=== PATIENT | male | born 1960 | race Caucasian/White ===

== ENCOUNTER 2020-04-24 01:20 | Emergency (ER) | payer SELFPAY ==
[2020-04-24 02:49] LABS: Absolute Lymphocytes (CBC) 1.7 K/uL (0.7-4.9); Basophils % 0.9 % (0-1.3); Hematocrit 41.1 % (39.6-49.0); Lymphocytes % 23.1 % (15.3-44.8); MPV 8.1 fL (7.6-11.3)
[2020-04-24 02:56] LABS: Protime INR 1.02
[2020-04-24 03:12] LABS: ALT/SGPT 25 U/L (12-78); AST/SGOT 20 U/L (15-37); Albumin 3.1 g/dL (3.4-5.0); Alkaline Phosphatase 90 U/L (45-117); BUN Blood Urea Nitrogen 17 mg/dL (7-18); Bicarbonate 27 mmol/L (21-32); Bilirubin Direct 0.1 mg/dL (0-0.2); Bilirubin Total 0.4 mg/dL (0.2-1.0); CKMB Creatine Kinase MB 1.1 ng/mL (0.3-3.6); Creatine Phosphokinase 193 U/L (39-308); Glucose Level 98 mg/dL (74-106); Lipase 90 U/L (73-393); Magnesium 2.1 mg/dL (1.8-2.4); NT PRO-BNP 3417 pg/mL (<125); Potassium 4.1 mmol/L (3.5-5.1); Sodium Level 143 mmol/L (136-145); Troponin (Emerg Dept Use Only) < 0.02 ng/mL (0.0-0.045)
[2020-04-24] MEDS ORDERED: AZITHROMYCIN 250 MG TAB ONE (05:11)
[2020-04-24] MEDS ORDERED: CEFTRIAXONE/SWI 1gm 1 GM/10 ML SYR ONE (05:12)
--- NOTE | 2020-04-24 05:12 | ER ---
Nurse's Notes [facility] Name: Mani Emerson Age: 59 yrs Sex: Male : 1960 Arrival Date: 04/24/2020 Time: 01:27 Bed 4 Private MD: Diagnosis: Pneumonia, unspecified organism Presentation: 04/24 01:51 Chief complaint: Patient states: I have been having trouble taking deep breathes jb4 through out the day yesterday. tonight it suddenly got worse. I have slight left sided chest pain that feels like cramps. Coronavirus screen: Client denies travel out of the [place] in the last 14 days. Client presents with at least one sign or symptom that may indicate coronavirus-19. Standard/surgical mask placed on the client. Provider contacted for isolation considerations. Ebola Screen: No symptoms or risks identified at this time. Initial Sepsis Screen: Does the patient meet any 2 criteria? HR > 90 bpm. Yes Does the patient have a suspected source of infection? No. Patient's initial sepsis screen is negative. Risk Assessment: Do you want to hurt yourself or someone else? Patient reports no desire to harm self or others. Onset of symptoms was April 23, 2020. Transition of care: patient was not received from another setting of care. 01:51 Method Of Arrival: Wheelchair jb4 01:51 Acuity: MARLEN 3 jb4 Historical: - Allergies: 01:58 No Known Allergies; jb4 - Home Meds: 01:58 None [Active]; jb4 - PMHx: 01:58 mitral valve regurgitation; Hernia; jb4 - PSHx: 01:58 MARY knees; MARY shoulders; Tonsillectomy; L hand; Hernia repair; jb4 - Immunization history:: Adult Immunizations up to date. - Social history:: Smoking status: Patient denies any tobacco usage or history of. Patient uses alcohol, only on a social basis. Patient/guardian denies using street drugs. Screenin:00 Abuse screen: Denies threats or abuse. Nutritional screening: No deficits noted. jb4 Tuberculosis screening: No symptoms or risk factors identified. Fall Risk None identified. Assessment: 02:00 General: Appears in no apparent distress. comfortable, Behavior is calm, cooperative, jb4 appropriate for age. Pain: Complains of pain in left breast Pain does not radiate. Pain currently is 3 out of 10 on a pain scale. Neuro: Level of Consciousness is awake, alert, obeys commands, Oriented to person, place, time, situation. Cardiovascular: Patient's skin is warm and dry. Respiratory: Airway is patent Respiratory effort is even, unlabored, Respiratory pattern is regular, symmetrical. GI: No signs and/or symptoms were reported involving the gastrointestinal system. : No signs and/or symptoms were reported regarding the genitourinary system. EENT: No signs and/or symptoms were reported regarding the EENT system. Derm: Skin is intact, Skin is pink, warm \T\ dry. Musculoskeletal: Circulation, motion, and sensation intact. Range of motion: intact in all extremities. 03:07 Reassessment: Patient appears in no apparent distress at this time. Patient and/or jb4 family updated on plan of care and expected duration. Pain level reassessed. Patient is alert, oriented x 3, equal unlabored respirations, skin warm/dry/pink. Patient states feeling better. 04:00 Reassessment: Patient appears in no apparent distress at this time. Patient and/or jb4 family updated on plan of care and expected duration. Pain level reassessed. Patient is alert, oriented x 3, equal unlabored respirations, skin warm/dry/pink. 04:59 Reassessment: () [id number]. 05:09 Reassessment: Patient appears in no apparent distress at this time. Patient and/or jb4 family updated on plan of care and expected duration. Pain level reassessed. Patient is alert, oriented x 3, equal unlabored respirations, skin warm/dry/pink. Patient states feeling better. Vital Signs: 01:51 BP 152 / 104; Pulse 95; Resp 18; Temp 98.2(TE); Pulse Ox 95% ; Weight 90.72 kg (R); jb4 Height 5 ft. 9 in. (175.26 cm); Pain 2/10; 03:00 BP 131 / 97; Pulse 94; Resp 18; Pulse Ox 96% on R/A; jb4 04:00 BP 133 / 96; Pulse 82; Resp 16; Pulse Ox 95% on R/A; jb4 05:00 BP 140 / 100; Pulse 97; Resp 16; Pulse Ox 95% on R/A; jb4 01:51 Body Mass Index 29.53 (90.72 kg, 175.26 cm) jb4 ED Course: 01:27 Patient arrived in ED. ag3 01:30 Tom Nelson MD is Attending Physician. tw4 01:51 Justin Garcia, RN is Primary Nurse. jb4 01:57 Triage completed. jb4 01:58 Arm band placed on right wrist. jb4 02:00 Patient has correct armband on for positive identification. Placed in gown. Bed in low jb4 position. Call light in reach. Side rails up X 1. tactical deception plans officer on. Pulse ox on. NIBP on. 02:25 Inserted saline lock: 20 gauge in right antecubital area, using aseptic technique. jb4 Blood collected. 02:25 Initial lab(s) drawn, by me, sent to lab. First set of blood cultures drawn by me. jb4 02:50 Second set of blood cultures drawn by me. Flu and/or RSV swab sent to lab. Covid-19 jb4 swab. 03:06 XRAY CXR (1 view) In Process Unspecified. EDMS 04:31 CT Chest For PE Angio In Process Unspecified. EDMS 05:22 No provider procedures requiring assistance completed. IV discontinued, intact, jb4 bleeding controlled, No redness/swelling at site. Pressure dressing applied. Administered Medications: 05:08 Drug: Rocephin - (cefTRIAXone) 1 grams {Note: Administered IVP per pharmacy protocol..} jb4 Route: IVPB; Infused Over: 30 mins; Site: right antecubital; 05:10 Follow up: Response: No adverse reaction; IV Status: Completed infusion jb4 05:10 Drug: AZITHromycin 500 mg Route: PO; jb4 05:21 Follow up: Response: No adverse reaction jb4 Outcome: 05:12 Discharge ordered by . tw4 05:22 Discharged to home ambulatory, with family. jb4 05:22 Condition: stable 05:22 Discharge instructions given to patient, Instructed on discharge instructions, follow up and referral plans. medication usage, Demonstrated understanding of instructions, follow-up care, medications, Prescriptions given X 2. 05:22 Patient left the ED. jb4 Signatures: Dispatcher [employer] [facility] Justin Garcia RN RN jb4 Rhianna Avalos RN RN ea Wadley, Terrence, MD MD tw4 Chele Cutlerce ag3
--- NOTE | 2020-04-24 05:12 | EDPHYS ---
Physician Documentation [facility] Name: Mani Emerson Age: 59 yrs Sex: Male : 1960 Arrival Date: 04/24/2020 Time: 01:27 Bed 4 Private MD: ED Physician Tom Nelson HPI: 04/24 06:36 This 59 yrs old Male presents to ER via Wheelchair with complaints of Unable tw4 to take a deep breath. 06:36 The patient has shortness of breath at rest. Onset: The symptoms/episode began/occurred tw4 today. Duration: The symptoms are continuous, and are unchanged since they started. The patient's shortness of breath has no apparent modifying factors. Associated signs and symptoms: The patient has no apparent associated signs or symptoms. Severity of symptoms: At their worst the symptoms were moderate in the emergency department the symptoms are unchanged. The patient has not experienced similar symptoms in the past. Historical: - Allergies: 01:58 No Known Allergies; jb4 - Home Meds: 01:58 None [Active]; jb4 - PMHx: 01:58 mitral valve regurgitation; Hernia; jb4 - PSHx: 01:58 MARY knees; MARY shoulders; Tonsillectomy; L hand; Hernia repair; jb4 - Immunization history:: Adult Immunizations up to date. - Social history:: Smoking status: Patient denies any tobacco usage or history of. Patient uses alcohol, only on a social basis. Patient/guardian denies using street drugs. ROS: 06:36 Constitutional: Negative for fever, chills, and weight loss, Eyes: Negative for injury, tw4 pain, redness, and discharge, Cardiovascular: Negative for chest pain, palpitations, and edema, Abdomen/GI: Negative for abdominal pain, nausea, vomiting, diarrhea, and constipation, Back: Negative for injury and pain, MS/Extremity: Negative for injury and deformity, Skin: Negative for injury, rash, and discoloration. 06:36 Respiratory: Positive for dyspnea on exertion, shortness of breath, Negative for cough, hemoptysis, orthopnea, pleurisy, wheezing. Exam: 06:36 Constitutional: This is a well developed, well nourished patient who is awake, alert, tw4 and in no acute distress. Head/Face: Normocephalic, atraumatic. Chest/axilla: Normal chest wall appearance and motion. Nontender with no deformity. No lesions are appreciated. Cardiovascular: Regular rate and rhythm with a normal S1 and S2. No gallops, murmurs, or rubs. Normal PMI, no JVD. No pulse deficits. Respiratory: Lungs have equal breath sounds bilaterally, clear to auscultation and percussion. No rales, rhonchi or wheezes noted. No increased work of breathing, no retractions or nasal flaring. Abdomen/GI: Soft, non-tender, with normal bowel sounds. No distension or tympany. No guarding or rebound. No evidence of tenderness throughout. Back: No spinal tenderness. No costovertebral tenderness. Full range of motion. MS/ Extremity: Pulses equal, no cyanosis. Neurovascular intact. Full, normal range of motion. Neuro: Awake and alert, GCS 15, oriented to person, place, time, and situation. Cranial nerves II-XII grossly intact. Motor strength 5/5 in all extremities. Sensory grossly intact. Cerebellar exam normal. Normal gait. Vital Signs: 01:51 BP 152 / 104; Pulse 95; Resp 18; Temp 98.2(TE); Pulse Ox 95% ; Weight 90.72 kg (R); jb4 Height 5 ft. 9 in. (175.26 cm); Pain 2/10; 03:00 BP 131 / 97; Pulse 94; Resp 18; Pulse Ox 96% on R/A; jb4 04:00 BP 133 / 96; Pulse 82; Resp 16; Pulse Ox 95% on R/A; jb4 05:00 BP 140 / 100; Pulse 97; Resp 16; Pulse Ox 95% on R/A; jb4 01:51 Body Mass Index 29.53 (90.72 kg, 175.26 cm) jb4 MDM: 02:01 Patient medically screened. tw4 06:36 Differential diagnosis: Chronic Obstructive Pulmonary Disease Myocardial Infarction tw4 pneumonia, Pneumothorax pulmonary edema, Pulmonary Embolism reactive airway disease. Antibiotic administration: The patient is discharged and will get outpatient antibiotics, Zithromax. Data reviewed: vital signs, nurses notes. Data reviewed: lab test result(s), cardiac enzymes, CBC, hepatic panel, radiologic studies, CT scan. Counseling: I had a detailed discussion with the patient and/or guardian regarding: the historical points, exam findings, and any diagnostic results supporting the discharge/admit diagnosis, lab results, radiology results. Special discussion: I discussed with the patient/guardian in detail that at this point there is no indication for admission to the hospital. It is understood, however, that if the symptoms persist or worsen the patient needs to return immediately for re-evaluation. 04/24 01:46 Order name: Blood Culture Adult (2) [facility] 04/24 01:46 Order name: BMP [facility] 04/24 01:46 Order name: CBC with Diff [facility] 04/24 01:46 Order name: Ckmb [facility] 04/24 01:46 Order name: CPK [facility] 04/24 01:46 Order name: D-Dimer [facility] 04/24 01:46 Order name: Hepatic Function [facility] 04/24 01:46 Order name: Lipase [facility] 04/24 01:46 Order name: Magnesium [facility] 04/24 01:46 Order name: NT PRO-BNP [facility] 04/24 01:46 Order name: PT-INR [facility] 04/24 01:46 Order name: Ptt, Activated [facility] 04/24 01:46 Order name: Troponin (emerg Dept Use Only) [facility] 04/24 02:36 Order name: Flu [facility] 04/24 01:46 Order name: XRAY CXR (1 view) [facility] 04/24 01:46 Order name: EKG; Complete Time: 02:33 04/24 01:46 Order name: Cardiac monitoring; Complete Time: 02:17 04/24 01:46 Order name: EKG - Nurse/Tech; Complete Time: 02:17 04/24 01:46 Order name: IV Saline Lock; Complete Time: 02:33 04/24 01:46 Order name: Labs collected and sent; Complete Time: 02:33 04/24 01:46 Order name: O2 Per Protocol; Complete Time: 02:17 04/24 01:46 Order name: O2 Sat Monitoring; Complete Time: 02:18 04/24 02:36 Order name: COVID-19 [facility] 04/24 02:36 Order name: Influenza Screen (A EDMS 04/24 03:01 Order name: CT Chest For PE Angio 04/24 03:26 Order name: SARS-COV-2 RT PCR EDMS Administered Medications: 05:08 Drug: Rocephin - (cefTRIAXone) 1 grams {Note: Administered IVP per pharmacy protocol..} jb4 Route: IVPB; Infused Over: 30 mins; Site: right antecubital; 05:10 Follow up: Response: No adverse reaction; IV Status: Completed infusion jb4 05:10 Drug: AZITHromycin 500 mg Route: PO; jb4 05:21 Follow up: Response: No adverse reaction jb4 Disposition: 04/24/20 05:12 Discharged to Home. Impression: Pneumonia, unspecified organism. - Condition is Stable. - Discharge Instructions: Community-Acquired Pneumonia, Adult. - Prescriptions for Albuterol Sulfate 90 mcg/actuation - inhale 1-2 puff by INHALATION route every 4-6 hours; 1 Inhaler. Zithromax 500 mg Oral Tablet - take 1 tablet by ORAL route once daily for 3 days; 3 tablet. - Medication Reconciliation Form, Thank You Letter, Antibiotic Education, Prescription Opioid Use form. - Follow up: Private Physician; When: Upon discharge from the Emergency Department; Reason: If symptoms return, Recheck today's complaints, Continuance of care, Re-evaluation by your physician. - Problem is new. - Symptoms have improved. Signatures: Dispatcher [employer] [facility] Justin Garcia RN RN jb4 Tom Nelson MD MD tw4 Corrections: (The following items were deleted from the chart) 03:26 02:36 CORONAVIRUS ordered. [facility] EDGA 05:22 05:12 04/24/2020 05:12 Discharged to Home. Impression: Pneumonia, unspecified organism. jb4 Condition is Stable. Forms are Medication Reconciliation Form, Thank You Letter, Antibiotic Education, Prescription Opioid Use. Follow up: Private Physician; When: Upon discharge from the Emergency Department; Reason: If symptoms return, Recheck today's complaints, Continuance of care, Re-evaluation by your physician. Problem is new. Symptoms have improved. tw4
[2020-04-24 05:37] VITALS: TEMP 98.2
[2020-04-24 05:40] VITALS: O2SAT 95
[2020-04-24 05:41] VITALS: BP 140/100
--- NOTE | 2020-04-24 08:55 | RAD REPORT ---
EXAM DESCRIPTION: Bharati Single View04/24/2020 3:05 am CLINICAL HISTORY: Shortness of breath COMPARISON: none FINDINGS: Small to moderate bilateral pleural effusions Mild right basilar lung opacity The heart is normal size IMPRESSION: Small to moderate bilateral pleural effusions Mild right basilar opacity may represent pneumonia or pulmonary edema
--- NOTE | 2020-04-25 07:44 | EKG ---
Test Date: 2020-04-24 Test Time: 01:59:43 Second Shift Supervisor: VERÓNICA MEASUREMENT RESULTS: Intervals: Rate: 97 NM: 146 QRSD: 88 QT: 360 QTc: 457 [place]: P: 53 NM: 146 QRS: 53 T: 31 INTERPRETIVE STATEMENTS: Normal sinus rhythm Normal ECG No previous ECG available for comparison Electronically Signed On 04-25-20 07:42:59 CDT by Wong Lan
--- NOTE | 2020-04-25 10:58 | RAD REPORT ---
EXAM DESCRIPTION: CT - Chest For Pe Angio - 04/24/2020 6:34 am CLINICAL HISTORY: The patient is 59 years old and is Male; SOB TECHNIQUE: Axial computed tomographic angiography images of the chest with intravenous contrast. S agittal and coronal reformatted images were created and reviewed. This CT exam was performed using one or more of the following dose reduction techniques: automated exposure control, adjustment of t he mA and/or kV according to patient size, and/or use of iterative reconstruction technique. MIP reconstructed images were created and reviewed. COMPARISON: No relevant prior studies available. FINDINGS: ARTIFACTS: The exam is suboptimal secondary to motion artifact. PULMONARY ARTERIES: The main pulmonary arteries and segmental branches opacify normally and are without filling defect. AORTA: No acute findings. No thoracic aortic aneurysm. LUNGS: Bibasilar atelectasis is present. Patchy groundglass opacity within the right upper lob e is noted. PLEURAL SPACE: Moderate bilateral pleural effusions are present. No pneumothorax. HEART: The heart is enlarged. A trace pericardial effusion is present. No evidence of RV dysfu nction. BONES/JOINTS: No acute fracture. No dislocation. SOFT TISSUES: Unremarkable. LYMPH NODES: Minimally prominent AP window lymph nodes are noted. LIVER: Use is within the liver present. IMPRESSION: 1. The main pulmonary arteries and segmental branches opacify normally and are without filling defect. The remainder of the pulmonary vessels are not adequately evaluated secondary to m otion artifact. 2. Moderate bilateral pleural effusions. 3. Patchy area of groundglass opacity specifically within the right upper lobe concerning for an in fectious process. Electronically signed by: Radha Figueroa MD 04/24/2020 4:45 AM CDT Due to temporary technical issues with the PACS/Fluency reporting system, reports are being signed by the in house radiologist without review as a courtesy to ensure prompt reporting. The interpreting r adiologist is fully responsible for the content of the report.
== END 2020-04-24 05:22 | disposition home or self-care (01) ==
LOC: ER 01:20
DX: J18.9 Pneumonia, unspecified organism (principal); Z20.828 Contact with and (suspected) exposure to other viral communicable diseases
CPT/HCPCS: 36415; 71045; 71275; 80048; 80076; 82550; 82553; 83690; 83735; 83880; 84484; 85025; 85379; 85610; 85730; 87040; 87804; 93005; 96374; 99284; J0696; Q9967; U0003

== ENCOUNTER 2020-06-01 14:36 | Emergency (ER) | payer OTHER ==
--- NOTE | 2020-06-01 14:50 | ER ---
Nurse's Notes [facility] Name: Mani Emerosn Age: 59 yrs Sex: Male : 1960 Arrival Date: 06/01/2020 Time: 14:38 Bed Waiting Private MD: Diagnosis: Presentation: 06/01 14:48 Chief complaint: pt left before triage to go to Dr. Lan's office. dm5 ED Course: 14:38 Patient arrived in ED. ag5 Administered Medications: No medications were administered Outcome: 14:49 Patient left the ED. dm5 Signatures: Dalia Arias RN RN jill5 [facility]
== END 2020-06-01 14:49 | disposition left against medical advice (07) ==
LOC: ER 14:36
DX: Z53.21 Procedure and treatment not carried out due to patient leaving prior to being seen by health care provider (principal)
CPT/HCPCS: 99281

== ENCOUNTER 2021-03-15 06:28 | Day surgery (SDC) | payer OTHER ==
[2021-03-09 17:04] LABS: Absolute Lymphocytes (CBC) 1.8 K/uL (0.7-4.9); Basophils % 0.9 % (0-1.3); Hematocrit 39.6 % (39.6-49.0); Lymphocytes % 30.4 % (15.3-44.8); MPV 7.4 fL (7.6-11.3); RBC Red Blood Cell Count 4.39 M/uL (4.33-5.43)
[2021-03-09 17:09] LABS: Protime INR 0.87
[2021-03-09 17:12] LABS: Potassium 3.8 mmol/L (3.5-5.1)
--- NOTE | 2021-03-09 17:16 | RAD REPORT ---
EXAM DESCRIPTION: RAD - Chest Pa And Lat (2 Views) - 03/09/2021 4:55 pm CLINICAL HISTORY: PRE OP COMPARISON: Chest Single View dated 04/24/2020 FINDINGS: No evidence of edema or pneumonia. The heart size is within normal limits.No acute osseous abnormality. No significant pleural effusions or pneumothorax. Sternotomy. Soft tissue anchors are p resent in the right humeral head. IMPRESSION: No acute cardiopulmonary disease.
[2021-03-15] MEDS ORDERED: Ringers Lactate 1,000 ML IV ONE (07:04)
[2021-03-15] MEDS ORDERED: CEFAZOLIN/SWI 2gm 2 GM/20 ML SYR ONE (07:04)
[2021-03-15] MEDS ORDERED: FENTANYL CITR 100 MCG/2 ML ONE (07:26)
[2021-03-15] MEDS ORDERED: LIDOCAINE 2% MPF 5 ML VIAL ONE (07:27)
[2021-03-15] MEDS ORDERED: propofoL 200 MG/20 ML VIAL IV ONE (07:27)
[2021-03-15] MEDS ORDERED: MIDAZOLAM HCL 2 MG/2 ML INJ ONE (07:27)
[2021-03-15] MEDS ORDERED: dexAMETHasone 10 MG/ML VIAL ONE (07:27)
[2021-03-15] MEDS ORDERED: BUPIVACAINE 0.5% PF 10 ML VIAL ONE (07:49)
[2021-03-15] MEDS ORDERED: KETOROLAC 30 MG/ML INJ ONE (08:50)
[2021-03-15] MEDS: MEPERIDINE HCL 25 MG/ML SYR ONE ×2 (09:12→09:17)
--- NOTE | 2021-03-15 09:18 | P.BOP ---
Preoperative diagnosis: right knee lateral meniscus tear, right knee osteoarthritis Postoperative diagnosis: same Primary procedure: right knee arthroscopic partial lateral meniscectomy Secondary procedure: right knee arthroscopic synovectomy Cartridge Loading Operator: NONE,NONE Estimated blood loss: 5 cc Specimen: right knee synovium, right knee cartilage, right knee lateral meniscus Findings: see dictation Anesthesia: General Complications: None Implants: none Fluids & blood products: per anesthesia record: TT: 46 mins @ 250 mmHg Transferred to: Recovery Room Condition: Good
[2021-03-15] MEDS: MORPHINE 4 MG/ML SYR ONE ×6 (09:27→09:50)
[2021-03-15 10:27] LABS: Appearance TURBID (CLEAR); Color of fluid Red (COLORLESS)
[2021-03-15 10:31] LABS: Body Fluid Source SYNOVIAL
[2021-03-15] MEDS ORDERED: HYDROCODONE/APAP 7.5/325 MG TAB ONE (10:38)
[2021-03-15 11:24] VITALS: BP 144/84; TEMP 97.2; O2SAT 95
[2021-03-15 11:28] LABS: Body Fluid WBC 383 /mm^3
--- NOTE | 2021-03-16 10:25 | OP ---
Date of Procedure: 03/15/2021 Surgeon: Shayen Thorne MD Preoperative Diagnoses: 1.Right knee lateral meniscus tear. 2.Right knee osteoarthritis with adhesion. Postoperative Diagnoses: 1.Right knee lateral meniscus tear. 2.Right knee osteoarthritis with adhesion. Procedure Performed: 1.Right knee arthroscopic partial lateral meniscectomy. 2.Right knee arthroscopic synovectomy with irrigation. Anesthesia: General, LMA. Fluids: Per Anesthesia record. Estimated Blood Loss: 5 cc. Complications: None. Specimens: 1.Right knee aspiration. 2.Right knee synovium. 3.Right knee . 4.Right knee lateral meniscus. Indications For Procedure: Mani is a 60-year-old male who presented to my clinic with signs and s ymptoms of recurrent effusions and MRI findings consistent with lateral meniscus tear. The patient w as having failed aspiration, corticosteroid injection as well as antiinflammatories. I di scussed with the patient at length the risks and benefits associated with operative and nonoperative treatment. He expressed understanding and elected to proceed with operative treatment. Description Of Procedure: After informed consent was obtained, the patient was identified in the pre operative holding area. The right upper extremity was marked. The patient was then brought back to the operating room, transferred to the operating table in supine fashion and placed under general LMA anesthesia. Right lower extremity was then prepped and draped in usual sterile fashion. Time-out p rocedure was initiated. The correct patient and procedure confirmed and identified. The patient did receive preop prophylactic antibiotics. The knee via the superior lateral portal. An 18 -gauge needle was brought into the knee to aspirate approximately 15 cc of sanguinous aspi rate was removed and set aside to sent to the lab for analysis. The right lower extremity was then e xsanguinated using an Esmarch and the tourniquet was inflated to 250 mmHg. Standard anteromedial and anterolateral portals were created. Diagnostic arthroscopy was performed. Arthroscope was first br ought into the patellofemoral joint. The patient was noted to have hyperemic synovium. The synovial tissue was irrigated, inflammatory in nature, synovectomy was then performed. The cartilage was not ed to have yellow or gold crystals or substance on the surface within the patellofemoral joint. No s ignificant chondral loose flaps were noted. There was grade 3 changes to the patellofemoral joint. The arthroscope was then brought in both medial and lateral gutters. Synovectomy was performed using the arthroscopic shaver. The synovial tissue was removed using the arthroscopic grasper and sent to pathology for analysis. The arthroscope was then brought to the medial compartment with the patient noted have more yellow gold substance on the cartilage surface. The loose piece of cartilage was th en removed using the pituitary grasper and sent to the lab for analysis. Medial meniscus was stable to probe. There was some grade 3 chondral changes noted within the medial compartment. The arthrosc ope was then brought into the intercondylar notch. The ACL was found to be intact as well as the PCL stable to probe. Synovectomy was then performed using the arthroscopic shaver. The arthroscope was then brought to the lateral compartment. The patient was noted to have a complex tear of the latera l meniscus with severe grade 4 chondromalacia changes noted on the lateral femoral condyle as well as lateral tibial plateau. The meniscus tear did extend into the popliteus and a partial meniscectomy was performed using a meniscal biter and arthroscopic shaver. Meniscal tissue also was noted to have the gold yellow crystals noted on it and the lateral meniscus was sent to pathology for analysis. A fter the partial meniscectomy was completed, the knee was irrigated with a total of 8 L of normal home ine. Arthroscopic instruments were then removed without complication. The wounds were then irrigate d and approximated using a 3-0 Monocryl. Sterile dressings were applied. Tourniquet was let down. The patient was awakened and transferred to PACU in stable condition. Postoperative Plan: The patient will be weightbearing as tolerated. He will follow up in clinic in 1 week for wound check. CV/MODL Voice ID: [id number] Report ID: [id number]
== END 2021-03-15 11:16 | disposition home or self-care (01) ==
LOC: OR 06:28
PROVIDERS: ATTEND Orthopaedic Surgery Sports Medicine
PROC: 0SBC4ZZ Excision of Right Knee Joint, Percutaneous Endoscopic Approach (ICD-10-PCS; principal; 2021-03-15 07:30)
DX: S83.241A Other tear of medial meniscus, current injury, right knee, initial encounter (principal); M25.461 Effusion, right knee; Z20.822 Contact with and (suspected) exposure to COVID-19
CPT/HCPCS: 93005 ×2; 87070; 85025; 80048; 36415 ×2; 89050; 87205; 85610; 88304; 88305; 85730; 87075; 89060; 71046; 29881; U0002; J2704; J2250; J3010; J1100; J2175; J0690; J7120

== ENCOUNTER 2022-03-26 06:30 | Day surgery (SDC) | payer OTHER ==
[2022-03-23 12:50] LABS: Absolute Lymphocytes (CBC) 1.8 K/uL (0.7-4.9); Hematocrit 40.9 % (39.6-49.0); Lymphocytes % 29.4 % (15.3-44.8); MPV 7.7 fL (7.6-11.3); RBC Red Blood Cell Count 4.49 M/uL (4.33-5.43)
[2022-03-23 12:58] LABS: Protime INR 0.98
[2022-03-23 13:03] LABS: SARS-CoV-2 Antigen Rapid Res Negative (Negative)
[2022-03-26] MEDS ORDERED: HEPA 1000U/500MLS 2,000 UNIT/1,000 ML BAG IV ONE (06:35)
[2022-03-26] MEDS ORDERED: LIDOCAINE 1% MPF 30 ML VIAL ONE (06:36)
[2022-03-26] MEDS ORDERED: NITROGLYCERIN 100 MCG/ML SYR (for cath lab use only) IV ONE (06:37)
[2022-03-26] MEDS ORDERED: MIDAZOLAM HCL 2 MG/2 ML INJ ONE ×2 (06:37→07:37)
[2022-03-26] MEDS ORDERED: FENTANYL CITR 100 MCG/2 ML ONE (06:37)
[2022-03-26] MEDS ORDERED: NA CHLORIDE 0.9% 0 ML IV ONE (06:38)
[2022-03-26] MEDS ORDERED: NITROGLYCERIN/D5W 25 MG/250 ML BTL IV ONE (06:38)
[2022-03-26] MEDS ORDERED: ATROPINE SULF 1 MG/10 ML SYR IV ONE (06:38)
[2022-03-26] MEDS ORDERED: NA CHLORIDE 0.9% 500 ML ONE (07:08)
[2022-03-26 09:07] VITALS: BP 122/67; O2SAT 96
--- NOTE | 2022-03-26 12:18 | OP ---
Surgeon: Wong Lan MD [place]: Ms. Sarah Andrea. Admitted on 03/26/2022 to the label maker as an outpatient. He underwent a left heart catheterization, selective coronary arteriogram, common femoral artery angiogram. Indication: Cardiac clearance prior to mitral valve repair surgery in [place]. Mr. Emerson is 61. Procedure In Detail: Brought to the label maker today as an outpatient, prepped and draped in the routi ne sterile fashion. Given Versed and fentanyl for sedation. A 6-[place] sheath introduced in the rig ht common femoral artery successfully using the Seldinger technique and 10 cc of Xylocaine. Angiogra phy there was normal. Angio-Seal was used to close the case. Sandra catheter left and right were u sed to do the left heart catheterization. He was found to have a normal left main, normal LAD. He h ad a 60% ostial OM stenosis. The RCA was large and it was right dominant. Common femoral artery ang iogram was normal. Angio-Seal was used to close the case. A 30 minutes conscious sedation. No comp lications. The patient tolerated the procedure well. Blood loss was 5 cc. Postoperative Diagnosis: Mild coronary artery disease. Plan: Plan is for medical therapy in that regard. We will clear for mitral valve repair by Dr. Yann Velásquez. He will go home today after 2 hours of bedrest. We will see him in the office after surgery in [place]. OREN/RAJENDRA Voice ID: [id number] Report ID: [id number]
--- NOTE | 2022-03-26 15:11 | EKG ---
Test Date: 2022-03-23 Test Time: 12:17:51 Pharmaceutical Physician: KI MEASUREMENT RESULTS: Intervals: Rate: 74 NJ: 156 QRSD: 94 QT: 404 QTc: 448 [place]: P: 31 NJ: 156 QRS: 1 T: 61 INTERPRETIVE STATEMENTS: Normal sinus rhythm Minimal voltage criteria for LVH, may be normal variant Possible Inferior infarct, age undetermined Abnormal ECG Compared to ECG 03/09/2021 15:24:03 Left ventricular hypertrophy now present Myocardial infarct finding now present Electronically Signed On 03-26-22 15:09:44 CDT by Rajendra Javier
== END 2022-03-26 09:33 | disposition home or self-care (01) ==
LOC: CCL 06:30
DX: I34.0 Nonrheumatic mitral (valve) insufficiency (principal); I25.10 Atherosclerotic heart disease of native coronary artery without angina pectoris; I48.0 Paroxysmal atrial fibrillation; I10 Essential (primary) hypertension; E78.2 Mixed hyperlipidemia; Z87.891 Personal history of nicotine dependence; Z20.822 Contact with and (suspected) exposure to COVID-19
CPT/HCPCS: 93005; 85025; 80048; 36415; 85610; 85730; 93454; 87811; C1893; Q9966; C1760; G0269; J2250 ×2; J3010; J7040; J1644; J0583

== ENCOUNTER 2022-05-22 13:10 | Emergency (ER) | payer OTHER ==
--- OUTSIDE RECORDS SUMMARY | 2022-05-22 13:25 | XMS REPORT | Continuity of Care Document ---
:1960 Author Organization [facility] t Address [address] [place] [address] Care Team Providers Name Role Phone Gudelia Barrientos NP Primary Care Physician Gudelia Barrientos Attending Clinician Unavailable Travis Merritt MD Attending Clinician Amado Moreau MD Attending Clinician Oscar Pretty MD Attending Clinician Bibiana Oliva Attending Clinician Michelle Ayers Attending Clinician ERROL BRIGGS Attending Clinician Unavailable SHANIKA DUMONT Attending Clinician Unavailable STERLING CAMPBELL Attending Clinician Unavailable TRAVIS MERRITT Admitting Clinician Unavailable NADIA ABDUL Admitting Clinician Unavailable Payers Payer Name Policy Type Policy Number Effective Date Expiration Date Amanda rogel AETNA 53 [id number] 2000 [facility] 00:[facility] - [facility] AETNA C1 [id number] [facility] AETNA HMO POS [id number] 2018 QPOS 00:00:00 Problems Condition Condition Condition Status Onset Resolution Last Treating Co mments Source Name Details Category Date Date Treatment Clinician Date Non-rheuma Non-rheuma Disease Active 2021-07 M ethodi tic mitral tic mitral 0-12 [facility] 00:[facility]: Ho sp[facility] ion ion 00 l s/p s/p Disease Active 2019-[address] [facility] St MVRepair MVRepair 1-18 Janet 06/06 ( 06/06 ( 00:00: Nh rolando Briggs) Letsou) 00 Center Atrial Atrial Disease Active 2019-[address] fibrillati fibrillati 1-18 Candelaria kes on on 00:00: Medical 00 [place] [id number] Arthritis Problem Active Co mmon [id number] of knee, [facility] right - [facility] Cardiogeni Cardiogeni Disease Active C HI [facility] c shock c [facility] Acute Acute Disease Active [facility] St respirator respirator Candelaria kes y y Medical insufficie insufficie Ce nter ncy ncy Acute Acute Disease Active [facility] St blood loss blood loss Candelaria kes anemia anemia [facility] Hypovolemi Hypovolemi Disease Active C [facility] shock c [facility] Metabolic Metabolic Disease Active [facility] acidosis acidosis [facility] Allergies, Adverse Reactions, Alerts Allergy Allergy Status Severity Reaction(s) Onset Inactive Treating Comm ents Source Name Type Date Date Clinician NO KNOWN Allergy [facility] History Family Member Diagnosis Comments Start Date Stop Date Source Natural mother Alzheimer's disease [facility] Natural mother Parkinsonism [facility] Natural mother Rectal cancer [facility] Natural mother No Known Problems Met [facility] Natural father No Known Problems Met [facility] Social History Social Habit Start Date Stop Date Quantity Comments Source History of Tobacco [facility] History SDOH [facility] Alcohol Comment [facility] Binge Medical Bin ter Alcohol intake 2022-04-27 2022-04-27 Ex-drinker [facility] 00:00:00 00:00:00 ([facility] Tobacco Comment 2022-04-23 2022-04-23 Has never [facility] 00:00:00 00:00:00 smoked, has Hospital always used snuff- has quit from time to time. History SDOH 2020-06-02 2020-06-[address] [facility] Alcohol Frequency 00:00:00 00:00:00 Medical Center History [facility] 2020-06-02 2020-06-[address] [facility] Alcohol Std Drinks 00:00:00 00:00:00 [facility] Tobacco use and 2020-06-01 2020-06-[address] [facility] exposure 00:00:00 00:00:00 [facility] Sex Assigned At [birth year] [facility] 00:00:00 00:00:00 Hospital Smoking Status Start Date Stop Date Source Never Smoker [facility] Medications Ordered Filled Start Stop Current Ordering Indication Dosage Frequency Signature Comments Components Source Medication Medication Date Date Medication? Clinician (SIG) Name Name colchicine 2021-07- Yes .6mg QD Take 1 Meth arti 0.6 mg 0-19 - tablet st tablet 00:00: 05:59 (0.6 mg Hospita 00 :00 total) by l mouth daily for 30 days. metoprolol 2021-07- No 25mg QD Take 1 Meth arti succinate 0-18 10-18 tablet (25 st XL 14:46: 00:00 mg total) Hospita (TOPROL-XL) 38 :00 by mouth l 25 mg 24 hr every tablet morning. aspirin 2021-07 Yes 81mg QD Take 1 [facility] (ECOTRIN) 0-18 tablet (81 st 81 MG 14:46: mg total) [facility]ospita enteric 34 by mouth l coated every tablet morning. lisinopriL 2021-07 Yes 2.5mg QD Take 1 Meth arti (PRINIVIL) 0-[address] 2.5 mg 14:46: (2.5 mg Hospita tablet 34 total) by l mouth every morning. multivitami 2021-07 Yes 1{tbl} QD Take 1 Me thodi n tablet 0-[address] 14:46: mouth [facility]osp[facility] 34 daily. l diphenhydrA 2021-07 Yes 25mg QD Take 1 Meth arti MINE 0-18 tablet (25 st (BENADRYL) 14:46: mg total) Ho spita 25 mg 34 by mouth l tablet nightly as needed for allergies. triamcinolo 2021-07 Yes 2{spray 2 sprays [facility] ne 0-18 } into each st (NASACORT) 14:46: nostril as H ospita 55 mcg 34 needed for l nasal rhinitis. inhaler metoprolol 2021-07- Yes 25mg Q.5D Take 1 Meth arti tartrate 0-18 11-18 tablet (25 st (LOPRESSOR) 00:00: 05:59 mg total) Hospita 25 mg 00 :00 by mouth 2 l tablet (two) times a day for 30 days. furosemide 2021-07- No 40mg QD Take 1 Meth arti (Lasix) 40 0-18 - tablet (40 st mg tablet 00:00: 04:59 mg total) Ho spita 00 :00 by mouth l daily for 7 days. potassium 2021-07 20meq QD Take 1 Meth arti chloride 0-18 - tablet (20 st (K-DUR) 20 00:00: 04:59 mEq total) Hospita MEQ CR 00 :00 by mouth l tablet daily for 7 days. While on lasix acetaminoph 2021-07 No 1{tbl} Q6H Take 1 [facility] en-codeine 0-18 - tablet by st (TYLENOL 00:00: 04:59 mouth Hospita WITH 00 :00 every 6 l CODEINE #3) (six) 300-30 mg hours as per tablet needed for moderate pain for up to 7 days .acute pain. methylPREDN 2021-07- No follow Met hodi ISolone 0-18 10-[address] (Medrol, 00:00: 04:59 directions Ho spita Brayden,) 4 mg 00 :00 l tablet acetaminoph 2021-[place] [id number] 1{tbl} Q6H Take 1 [facility] en-codeine 0-18 10-[address] (TYLENOL 00:00: 00:00 mouth [facility]ospita WITH 00 :00 every 6 l CODEINE #3) (six) 300-30 mg hours as per tablet needed for moderate pain for up to 7 days .acute pain. HYDROcodone HYDROcodone 2020- No 1{table HYDROcodon -Acetaminop -Acetaminop 8-13 04- t_as_ne e-Acetamin hen 5-325 hen 5-325 00:00: 00:00 eded} ophen MG MG 00 :00 5-325 MG HYDROcodone HYDROcodone 2021- No 1{table HYDROcodon -Acetaminop -Acetaminop 03-13 t_as_ne e-Acetamin hen 5-325 hen 5-325 00:00: 00:00 eded} ophen MG MG 00 :00 5-325 MG HYDROcodone HYDROcodone 0 2021- No 1{table HYDROcodon -Acetaminop -Acetaminop 03-13 t_as_ne e-Acetamin hen 5-325 hen 5-325 00:00: 00:00 eded} ophen MG MG 00 :00 5-325 MG HYDROcodone HYDROcodone 1- No 1{table HYDROcodon -Acetaminop -Acetaminop 03-13 t_as_ne e-Acetamin hen 5-325 hen 5-325 00:00: 00:00 eded} ophen MG MG 00 :00 5-325 MG Indomethaci Indomethaci 2020-0 1- No 1{capsu QD Indomethac n ER 75 MG n ER 75 MG 02-17 le_with in ER 75 00:00: 00:00 _food} MG 00 :00 Indomethaci Indomethaci 2020-0 1- No 1{capsu QD Indomethac n ER 75 MG n ER 75 MG 02-17 le_with in ER 75 00:00: 00:00 _food} MG 00 :00 methylPREDN methylPREDN 2020-0 No methylPRED ISolone 4 ISolone 4 -12 NISolone 4 MG MG 00:00: MG 00 methylPREDN methylPREDN 1-0 No methylPRED ISolone 4 ISolone 4 -12 NISolone 4 MG MG 00:00: MG 00 methylPREDN methylPREDN 1-0 No methylPRED ISolone 4 ISolone 4 7-12 NISolone 4 MG MG 00:00: MG 00 methylPREDN methylPREDN 1-0 No methylPRED ISolone 4 ISolone 4 -12 NISolone 4 MG MG 00:00: MG 00 methylPREDN methylPREDN 1-0 No methylPRED ISolone 4 ISolone 4 -12 NISolone 4 MG MG 00:00: MG 00 methylPREDN methylPREDN 2021-0 No methylPRED ISolone 4 ISolone 4 -12 NISolone 4 MG MG 00:00: MG 00 methylPREDN methylPREDN 2021-0 No methylPRED ISolone 4 ISolone 4 7- NISolone 4 MG MG 00:00: MG 00 methylPREDN methylPREDN 2021-0 No methylPRED ISolone 4 ISolone 4 - NISolone 4 MG MG 00:00: MG 00 methylPREDN methylPREDN 2021-0 No methylPRED ISolone 4 ISolone 4 - NISolone 4 MG MG 00:00: MG 00 methylPREDN methylPREDN 2021-0 No methylPRED ISolone 4 ISolone 4 - NISolone 4 MG MG 00:00: MG 00 methylPREDN methylPREDN 2021-0 No methylPRED ISolone 4 ISolone 4 - NISolone 4 MG MG 00:00: MG 00 methylPREDN methylPREDN 2021-0 No methylPRED ISolone 4 ISolone 4 - NISolone 4 MG MG 00:00: MG 00 methylPREDN methylPREDN 2021-0 No methylPRED ISolone 4 ISolone 4 - NISolone 4 MG MG 00:00: MG 00 methylPREDN methylPREDN 2021-0 No methylPRED ISolone 4 ISolone 4 - NISolone 4 MG MG 00:00: MG 00 methylPREDN methylPREDN 2021-0 No methylPRED ISolone 4 ISolone 4 - NISolone 4 MG MG 00:00: MG 00 methylPREDN methylPREDN 2021-0 No methylPRED ISolone 4 ISolone 4 - NISolone 4 MG MG 00:00: MG 00 methylPREDN methylPREDN 2021-0 No methylPRED ISolone 4 ISolone 4 - NISolone 4 MG MG 00:00: MG 00 methylPREDN methylPREDN 2021-0 No methylPRED ISolone 4 ISolone 4 - NISolone 4 MG MG 00:00: MG 00 aspirin 81 2019-07- No 81mg QD Take [address] [facility] EC 08-17 tablet (81 [facility] tablet 00:00: 23:59 mg total) Medic al 00 :00 by mouth Center daily. lisinopriL 2019-07 No 2.5mg QD Take [address] (PRINIVIL,Z 08-17 tablet [facility] ESTRIL) 2.5 00:00: 23:59 (2.5 mg Me dical MG tablet 00 :00 total) by Cente r mouth daily. acetaminoph 2019-07- No 650mg Take [address] en 08-16 tablets [facility] (TYLENOL) 00:00: 23:59 (650 mg Medi kaylah 325 MG 00 :00 total) by Center tablet mouth every 6 (six) hours as needed for Fever for up to 360 days. Metoprolol Metoprolol No Metoprolol Succinate Succinate Succinate ER ER ER Amiodarone Amiodarone No Amiodarone HCl HCl HCl Bumetanide Bumetanide No Bumetanide Aspirin Low Aspirin Low No Aspirin Dose Dose Low Dose Azithromyci Azithromyci No Azithromyc n n in Mobic 7.5 Mobic 7.5 No 1{table QD Mobic 7.5 MG MG t} MG Lisinopril Lisinopril No Lisinopril Albuterol Albuterol No Albuterol Sulfate HFA Sulfate HFA Sulfate HFA Amoxicillin Amoxicillin No Amoxicilli n Mobic 7.5 Mobic 7.5 No 1{table QD Mobic 7.5 MG MG t} MG Bumetanide Bumetanide No Bumetanide Amiodarone Amiodarone No Amiodarone HCl HCl HCl Azithromyci Azithromyci No Azithromyc n n in Amoxicillin Amoxicillin No Amoxicilli n Metoprolol Metoprolol No Metoprolol Succinate Succinate Succinate ER ER ER Albuterol Albuterol No Albuterol Sulfate HFA Sulfate HFA Sulfate HFA Lisinopril Lisinopril No Lisinopril Aspirin Low Aspirin Low No Aspirin Dose Dose Low Dose Mobic 7.5 Mobic 7.5 No 1{table QD Mobic 7.5 MG MG t} MG Bumetanide Bumetanide No Bumetanide Amoxicillin Amoxicillin No Amoxicilli n Amiodarone Amiodarone No Amiodarone HCl HCl HCl Azithromyci Azithromyci No Azithromyc n n in Aspirin Low Aspirin Low No Aspirin Dose Dose Low Dose Lisinopril Lisinopril No Lisinopril Metoprolol Metoprolol No Metoprolol Succinate Succinate Succinate ER ER ER Albuterol Albuterol No Albuterol Sulfate HFA Sulfate HFA Sulfate HFA Mobic 7.5 Mobic 7.5 No 1{table QD Mobic 7.5 MG MG t} MG Amiodarone Amiodarone No Amiodarone HCl HCl HCl Amoxicillin Amoxicillin No Amoxicilli n Albuterol Albuterol No Albuterol Sulfate HFA Sulfate HFA Sulfate HFA Azithromyci Azithromyci No Azithromyc n n in Bumetanide Bumetanide No Bumetanide Metoprolol Metoprolol No Metoprolol Succinate Succinate Succinate ER ER ER Aspirin Low Aspirin Low No Aspirin Dose Dose Low Dose Lisinopril Lisinopril No Lisinopril Mobic 7.5 Mobic 7.5 No 1{table QD Mobic 7.5 MG MG t} MG Amiodarone Amiodarone No Amiodarone HCl HCl HCl Amoxicillin Amoxicillin No Amoxicilli n Albuterol Albuterol No Albuterol Sulfate HFA Sulfate HFA Sulfate HFA Azithromyci Azithromyci No Azithromyc n n in Bumetanide Bumetanide No Bumetanide Metoprolol Metoprolol No Metoprolol Succinate Succinate Succinate ER ER ER Aspirin Low Aspirin Low No Aspirin Dose Dose Low Dose Lisinopril Lisinopril No Lisinopril Amoxicillin Amoxicillin No Amoxicilli n Albuterol Albuterol No Albuterol Sulfate HFA Sulfate HFA Sulfate HFA Azithromyci Azithromyci No Azithromyc n n in Mobic 7.5 Mobic 7.5 No 1{table QD Mobic 7.5 MG MG t} MG Lisinopril Lisinopril No Lisinopril Amiodarone Amiodarone No Amiodarone HCl HCl HCl Aspirin Low Aspirin Low No Aspirin Dose Dose Low Dose Bumetanide Bumetanide No Bumetanide Metoprolol Metoprolol No Metoprolol Succinate Succinate Succinate ER ER ER Amoxicillin Amoxicillin No Amoxicilli n Albuterol Albuterol No Albuterol Sulfate HFA Sulfate HFA Sulfate HFA Azithromyci Azithromyci No Azithromyc n n in Mobic 7.5 Mobic 7.5 No 1{table QD Mobic 7.5 MG MG t} MG Lisinopril Lisinopril No Lisinopril Amiodarone Amiodarone No Amiodarone HCl HCl HCl Aspirin Low Aspirin Low No Aspirin Dose Dose Low Dose Bumetanide Bumetanide No Bumetanide Metoprolol Metoprolol No Metoprolol Succinate Succinate Succinate ER ER ER Amoxicillin Amoxicillin No Amoxicilli n Azithromyci Azithromyci No Azithromyc n n in Albuterol Albuterol No Albuterol Sulfate HFA Sulfate HFA Sulfate HFA Mobic 7.5 Mobic 7.5 No 1{table QD Mobic 7.5 MG MG t} MG Lisinopril Lisinopril No Lisinopril Amiodarone Amiodarone No Amiodarone HCl HCl HCl Aspirin Low Aspirin Low No Aspirin Dose Dose Low Dose Bumetanide Bumetanide No Bumetanide Metoprolol Metoprolol No Metoprolol Succinate Succinate Succinate ER ER ER Amoxicillin Amoxicillin No Amoxicilli n Azithromyci Azithromyci No Azithromyc n n in Albuterol Albuterol No Albuterol Sulfate HFA Sulfate HFA Sulfate HFA Mobic 7.5 Mobic 7.5 No 1{table QD Mobic 7.5 MG MG t} MG Lisinopril Lisinopril No Lisinopril Amiodarone Amiodarone No Amiodarone HCl HCl HCl Aspirin Low Aspirin Low No Aspirin Dose Dose Low Dose Bumetanide Bumetanide No Bumetanide Metoprolol Metoprolol No Metoprolol Succinate Succinate Succinate ER ER ER Bumetanide Bumetanide No Bumetanide Metoprolol Metoprolol No Metoprolol Succinate Succinate Succinate ER ER ER Mobic 7.5 Mobic 7.5 No 1{table QD Mobic 7.5 MG MG t} MG Lisinopril Lisinopril No Lisinopril Aspirin Low Aspirin Low No Aspirin Dose Dose Low Dose Amoxicillin Amoxicillin No Amoxicilli n Amiodarone Amiodarone No Amiodarone HCl HCl HCl Azithromyci Azithromyci No Azithromyc n n in Albuterol Albuterol No Albuterol Sulfate HFA Sulfate HFA Sulfate HFA Metoprolol Metoprolol No Metoprolol Succinate Succinate Succinate ER ER ER Albuterol Albuterol No Albuterol Sulfate HFA Sulfate HFA Sulfate HFA Aspirin Low Aspirin Low No Aspirin Dose Dose Low Dose Amoxicillin Amoxicillin No Amoxicilli n Mobic 7.5 Mobic 7.5 No 1{table QD Mobic 7.5 MG MG t} MG Amiodarone Amiodarone No Amiodarone HCl HCl HCl Azithromyci Azithromyci No Azithromyc n n in Lisinopril Lisinopril No Lisinopril Bumetanide Bumetanide No Bumetanide Metoprolol Metoprolol No Metoprolol Succinate Succinate Succinate ER ER ER Amoxicillin Amoxicillin No Amoxicilli n Aspirin Low Aspirin Low No Aspirin Dose Dose Low Dose Mobic 7.5 Mobic 7.5 No 1{table QD Mobic 7.5 MG MG t} MG Albuterol Albuterol No Albuterol Sulfate HFA Sulfate HFA Sulfate HFA Bumetanide Bumetanide No Bumetanide Lisinopril Lisinopril No Lisinopril Amiodarone Amiodarone No Amiodarone HCl HCl HCl Azithromyci Azithromyci No Azithromyc n n in Metoprolol Metoprolol No Metoprolol Succinate Succinate Succinate ER ER ER Azithromyci Azithromyci No Azithromyc n n in Albuterol Albuterol No Albuterol Sulfate HFA Sulfate HFA Sulfate HFA Amiodarone Amiodarone No Amiodarone HCl HCl HCl Bumetanide Bumetanide No Bumetanide Aspirin Low Aspirin Low No Aspirin Dose Dose Low Dose Mobic 7.5 Mobic 7.5 No 1{table QD Mobic 7.5 MG MG t} MG Lisinopril Lisinopril No Lisinopril Amoxicillin Amoxicillin No Amoxicilli n Metoprolol Metoprolol No Metoprolol Succinate Succinate Succinate ER ER ER Azithromyci Azithromyci No Azithromyc n n in Albuterol Albuterol No Albuterol Sulfate HFA Sulfate HFA Sulfate HFA Amiodarone Amiodarone No Amiodarone HCl HCl HCl Bumetanide Bumetanide No Bumetanide Aspirin Low Aspirin Low No Aspirin Dose Dose Low Dose Mobic 7.5 Mobic 7.5 No 1{table QD Mobic 7.5 MG MG t} MG Lisinopril Lisinopril No Lisinopril Amoxicillin Amoxicillin No Amoxicilli n Metoprolol Metoprolol No Metoprolol Succinate Succinate Succinate ER ER ER Azithromyci Azithromyci No Azithromyc n n in Albuterol Albuterol No Albuterol Sulfate HFA Sulfate HFA Sulfate HFA Amiodarone Amiodarone No Amiodarone HCl HCl HCl Bumetanide Bumetanide No Bumetanide Aspirin Low Aspirin Low No Aspirin Dose Dose Low Dose Mobic 7.5 Mobic 7.5 No 1{table QD Mobic 7.5 MG MG t} MG Lisinopril Lisinopril No Lisinopril Amoxicillin Amoxicillin No Amoxicilli n Azithromyci Azithromyci No Azithromyc n n in Amiodarone Amiodarone No Amiodarone HCl HCl HCl Amoxicillin Amoxicillin No Amoxicilli n Mobic 7.5 Mobic 7.5 No 1{table QD Mobic 7.5 MG MG t} MG Metoprolol Metoprolol No Metoprolol Succinate Succinate Succinate ER ER ER Bumetanide Bumetanide No Bumetanide Albuterol Albuterol No Albuterol Sulfate HFA Sulfate HFA Sulfate HFA Aspirin Low Aspirin Low No Aspirin Dose Dose Low Dose Lisinopril Lisinopril No Lisinopril Azithromyci Azithromyci No Azithromyc n n in Bumetanide Bumetanide No Bumetanide Lisinopril Lisinopril No Lisinopril Mobic 7.5 Mobic 7.5 No 1{table QD Mobic 7.5 MG MG t} MG Amoxicillin Amoxicillin No Amoxicilli n Albuterol Albuterol No Albuterol Sulfate HFA Sulfate HFA Sulfate HFA Aspirin Low Aspirin Low No Aspirin Dose Dose Low Dose Metoprolol Metoprolol No Metoprolol Succinate Succinate Succinate ER ER ER Amiodarone Amiodarone No Amiodarone HCl HCl HCl Metoprolol Metoprolol No Metoprolol Succinate Succinate Succinate ER ER ER Bumetanide Bumetanide No Bumetanide Albuterol Albuterol No Albuterol Sulfate HFA Sulfate HFA Sulfate HFA Amoxicillin Amoxicillin No Amoxicilli n Aspirin Low Aspirin Low No Aspirin Dose Dose Low Dose Lisinopril Lisinopril No Lisinopril Azithromyci Azithromyci No Azithromyc n n in Amiodarone Amiodarone No Amiodarone HCl HCl HCl Metoprolol Metoprolol No Metoprolol Succinate Succinate Succinate ER ER ER Amoxicillin Amoxicillin No Amoxicilli n Albuterol Albuterol No Albuterol Sulfate HFA Sulfate HFA Sulfate HFA Mobic 7.5 Mobic 7.5 No 1{table QD Mobic 7.5 MG MG t} MG Amiodarone Amiodarone No Amiodarone HCl HCl HCl Aspirin Low Aspirin Low No Aspirin Dose Dose Low Dose Lisinopril Lisinopril No Lisinopril Azithromyci Azithromyci No Azithromyc n n in Bumetanide Bumetanide No Bumetanide Bumetanide Bumetanide No Bumetanide Azithromyci Azithromyci No Azithromyc n n in Aspirin Low Aspirin Low No Aspirin Dose Dose Low Dose Mobic 7.5 Mobic 7.5 No 1{table QD Mobic 7.5 MG MG t} MG Amiodarone Amiodarone No Amiodarone HCl HCl HCl Metoprolol Metoprolol No Metoprolol Succinate Succinate Succinate ER ER ER Lisinopril Lisinopril No Lisinopril Albuterol Albuterol No Albuterol Sulfate HFA Sulfate HFA Sulfate HFA Amoxicillin Amoxicillin No Amoxicilli n Immunizations Ordered Immunization Filled Immunization Date Status Commen ts Source Name Name Bupivicaine Pauline Bupivicaine Pauline 2021-01-10 Completed [facility]:47:00 [facility] Kenalog Kenalog 2021-01-10 Completed [facility] - (Triamcinolone) (Triamcinolone) 15:47:00 [facility] Bupivicaine Pauline Bupivicaine Pauline 2021-01-10 Completed [facility] - 15:47:00 [facility] Kenalog Kenalog 2021-01-10 Completed [facility] - (Triamcinolone) (Triamcinolone) 15:47:00 [facility] Bupivicaine Pauline Bupivicaine Pauline 2021-01-10 Completed [facility] 15:47:00 [facility] Marc Tran 2021-01-10 Completed [facility] - (Triamcinolone) (Triamcinolone) 15:47:00 [facility] Bupivicaine Pauline Bupivicaine Pauline 2021-01-10 Completed [facility] 15:47:00 [facility] Kenparminder Kenparminder 2021-01-10 Completed [facility] - (Triamcinolone) (Triamcinolone) 15:47:00 [facility] Bupivicaine Pauline Bupivicaine Pauline 2021-01-10 Completed [facility] 15:47:00 [facility] Marc Tran 2021-01-10 Completed [facility] - (Triamcinolone) (Triamcinolone) 15:47:00 [facility] Bupivicaine Pauline Bupivicaine Pauline 2021-01-10 Completed [facility] - 15:47:00 [facility] Marc Tran 2021-01-10 Completed [facility] - (Triamcinolone) (Triamcinolone) 15:47:00 [facility] Bupivicaine Pauline Bupivicaine Pauline 2021-01-10 Completed [facility] 15:47:00 [facility] Marc Tran 2021-01-10 Completed [facility] - (Triamcinolone) (Triamcinolone) 15:47:00 [facility] Bupivicaine Pauline Bupivicaine Pauline 2021-01-10 Completed [facility] - 15:47:00 [facility] Marc Tran 2021-01-10 Completed [facility] - (Triamcinolone) (Triamcinolone) 15:47:00 [facility] Bupivicaine Pauline Bupivicaine Pauline 2021-01-10 Completed [facility] - 15:47:00 [facility] Marc Tran 2021-01-10 Completed [facility] - (Triamcinolone) (Triamcinolone) 15:47:00 [facility] Bupivicaine Pauline Bupivicaine Pauline 2021-01-10 Completed [facility] 15:47:00 [facility] Marc Tran 2021-01-10 Completed [facility] - (Triamcinolone) (Triamcinolone) 15:47:00 [facility] Bupivicaine Pauline Bupivicaine Pauline 2021-01-10 Completed [facility] - 15:47:00 [facility] Kenparminder Kenalog 2021-01-10 Completed [facility] - (Triamcinolone) (Triamcinolone) 15:47:00 [facility] Bupivicaine Pauline Bupivicaine Pauline 2021-01-10 Completed [facility] 15:47:00 [facility] Mrac Tran 2021-01-10 Completed [facility] - (Triamcinolone) (Triamcinolone) 15:47:00 [facility] Bupivicaine Pauline Bupivicaine Pauline 2021-01-10 Completed [facility] 15:47:00 [facility] Marc Tran 2021-01-10 Completed [facility] - (Triamcinolone) (Triamcinolone) 15:47:00 [facility] Bupivicaine Pauline Bupivicaine Pauline 2021-01-10 Completed [facility] 15:47:00 [facility] Marc Tran 2021-01-10 Completed [facility] - (Triamcinolone) (Triamcinolone) 15:47:00 [facility] Bupivicaine Pauline Bupivicaine Pauline 2021-01-10 Completed [facility] 15:47:00 [facility] Marc Tran 2021-01-10 Completed [facility] (Triamcinolone) (Triamcinolone) 15:47:00 [facility] Bupivicaine Pauline Bupivicaine Pauline 2021-01-10 Completed [facility] 15:47:00 [facility] Marc Tran 2021-01-10 Completed [facility] - (Triamcinolone) (Triamcinolone) 15:47:00 [facility] COVID-19 2020-10-11 Completed [facility] VACC[facility] 00:00:00 [facility] COVID-19 2020-09-15 Completed [facility] VACC[facility] 00:00:00 Hospital Vital Signs Vital Name Observation Time Observation Value Comments Source height 2021-06-22 13:30:00 69 [in_i] [facility] weight 2021-06-22 13:30:00 213 [facility] temperature 2021-06-22 13:30:00 98.2 [degF] [facility] bmi 2021-06-22 13:30:00 31.45 kg/m2 [facility] blood pressure 2021-06-22 13:30:00 132 mm[Hg] [facility] systolic [facility] blood pressure 2021-06-22 13:30:00 84 mm[Hg] [facility] diastolic [facility] height 2021-06-07 08:00:00 69 [in_i] [facility] weight 2021-06-07 08:00:00 213 [lb_av] [facility] temperature 2021-06-07 08:00:00 97.9 [degF] [facility] bmi 2021-06-07 08:00:00 31.45 kg/m2 [facility] blood pressure 2021-06-07 08:00:00 124 mm[Hg] [facility] systolic [facility] blood pressure 2021-06-07 08:00:00 82 mm[Hg] [facility] height 2021-05-01 08:30:00 69 [in_i] [facility] weight 2021-05-01 08:30:00 213.4 [lb_av] [facility] bmi 2021-05-01 08:30:00 31.51 kg/m2 [facility] blood pressure 2021-05-01 08:30:00 136 mm[Hg] [facility] systolic [facility] blood pressure 2021-05-01 08:30:00 84 mm[Hg] [facility] height 2021-03-30 09:15:00 69 [in_i] [facility] weight 2021-03-30 09:15:00 211 [lb_av] [facility] temperature 2021-03-30 09:15:00 98.2 [degF] [facility] bmi 2021-03-30 09:15:00 31.16 kg/m2 [facility] blood pressure 2021-03-30 09:15:00 112 mm[Hg] [facility] systolic [facility] blood pressure 2021-03-30 09:15:00 78 mm[Hg] [facility] height 2021-03-21 08:30:00 69 [in_i] [facility] weight 2021-03-21 08:30:00 211 [lb_av] [facility] temperature 2021-03-21 08:30:00 97.7 [degF] [facility] bmi 2021-03-21 08:30:00 31.16 kg/m2 [facility] blood pressure 2021-03-21 08:30:00 144 mm[Hg] [facility] blood pressure 2021-03-21 08:30:00 90 mm[Hg] [facility] height 2021-03-03 08:30:00 69 [in_i] [facility] weight 2021-03-03 08:30:00 211 [lb_av] [facility] bmi 2021-03-03 08:30:00 31.16 kg/m2 [facility] blood pressure 2021-03-03 08:30:00 156 mm[Hg] [facility] blood pressure 2021-03-03 08:30:00 102 mm[Hg] [facility] height 2021-02-21 08:00:00 69 [in_i] [facility] weight 2021-02-21 08:00:00 211 [lb_av] [facility] bmi 2021-02-21 08:00:00 31.16 kg/m2 [facility] blood pressure 2021-02-21 08:00:00 144 mm[Hg] [facility] blood pressure 2021-02-21 08:00:00 99 mm[Hg] [facility] height 2021-02-06 08:00:00 69 [in_i] [facility] weight 2021-02-06 08:00:00 211.3 [lb_av] [facility] temperature 2021-02-06 08:00:00 97.3 [degF] [facility] bmi 2021-02-06 08:00:00 31.2 kg/m2 [facility] blood pressure 2021-02-06 08:00:00 122 mm[Hg] [facility] blood pressure 2021-02-06 08:00:00 78 mm[Hg] [facility] weight 2021-01-23 08:15:00 209 [lb_av] [facility] bmi 2021-01-23 08:15:00 30.86 kg/m2 [facility] blood pressure 2021-01-23 08:15:00 122 mm[Hg] [facility] blood pressure 2021-01-23 08:15:00 82 mm[Hg] [facility] height 2021-01-23 08:15:00 69 [in_i] [facility] height 2021-01-10 15:00:00 69 [in_i] [facility] weight 2021-01-10 15:00:00 209.1 [lb_av] [facility] temperature 2021-01-10 15:00:00 97.7 [degF] [facility] bmi 2021-01-10 15:00:00 30.88 kg/m2 [facility] blood pressure 2021-01-10 15:00:00 162 mm[Hg] [facility] systolic [facility] blood pressure 2021-01-10 15:00:00 94 mm[Hg] [facility] HEIGHT 2020-07-06 09:24:00 175.3 cm WEIGHT 2020-07-06 09:24:00 87.454 kg WEIGHT 2020-06-15 06:00:00 85.367 kg WEIGHT 2020-06-14 04:00:00 86.637 kg WEIGHT 2020-06-13 05:00:00 87.4 kg WEIGHT 2020-06-10 20:00:00 89.8 kg WEIGHT 2020-06-09 05:57:00 84.8 kg WEIGHT 2020-06-06 05:00:00 81.8 kg WEIGHT 2020-06-05 04:00:00 84.9 kg WEIGHT 2020-06-04 03:00:00 88 kg HEIGHT 2020-06-03 18:00:00 175.3 cm WEIGHT 2020-06-03 18:00:00 90.5 kg WEIGHT 2020-06-03 04:01:00 89.177 kg WEIGHT 2020-06-02 06:41:00 88.27 kg HEIGHT 2020-06-01 18:11:00 175.3 cm WEIGHT 2020-06-01 18:11:00 90.719 kg WEIGHT 2020-06-15 06:00:00 85.367 kg WEIGHT 2020-06-14 04:00:00 86.637 kg WEIGHT 2020-06-13 05:00:00 87.4 kg WEIGHT 2020-06-10 20:00:00 89.8 kg WEIGHT 2020-06-09 05:57:00 84.8 kg WEIGHT 2020-06-06 05:00:00 81.8 kg WEIGHT 2020-06-05 04:00:00 84.9 kg WEIGHT 2020-06-04 03:00:00 88 kg HEIGHT 2020-06-03 18:00:00 175.3 cm WEIGHT 2020-06-03 18:00:00 90.5 kg WEIGHT 2020-06-03 04:01:00 89.177 kg WEIGHT 2020-06-02 06:41:00 88.27 kg HEIGHT 2020-06-01 18:11:00 175.3 cm WEIGHT 2020-06-01 18:11:00 90.719 kg Systolic blood 2022-05-01 16:58:16 130 mm[Hg] [facility] pressure Diastolic blood 2022-05-01 16:58:16 74 mm[Hg] [facility] pressure Heart rate 2022-05-01 16:58:16 86 /min [facility] Body temperature 2022-05-01 16:58:16 36.22 Esperanza [facility] Respiratory rate 2022-05-01 16:58:16 18 /min [facility] Oxygen saturation in 2022-05-01 16:58:16 100 /min [facility] Arterial blood by Pulse oximetry Body weight 2022-05-01 10:13:25 94.394 kg [facility] BMI 2022-05-01 10:13:25 30.73 kg/m2 [facility] Body height 2022-04-25 10:56:00 175.3 cm [facility] Procedures Procedure Date / Time Performing Clinician Source Performed POC GLUCOSE 2022-05-01 16:59:00 [facility] POC GLUCOSE 2022-05-01 13:27:00 [facility] CBC HEMOGRAM 2022-05-01 10:55:00 [facility] BASIC METABOLIC PANEL 2022-05-01 10:55:00 [facility] ESTIMATED GFR 2022-05-01 10:55:00 [facility] POC GLUCOSE 2022-05-01 01:35:00 [facility] POC GLUCOSE 2022-04-30 21:38:00 [facility] POC GLUCOSE 2022-04-30 16:52:00 [facility] XR CHEST 1 VW PORTABLE 2022-04-30 16:45:00 [facility] POC GLUCOSE 2022-04-30 12:35:00 [facility] CBC HEMOGRAM 2022-04-30 11:31:00 [facility] BASIC METABOLIC PANEL 2022-04-30 11:31:00 [facility] ESTIMATED GFR 2022-04-30 11:31:00 [facility] POC GLUCOSE 2022-04-30 02:33:00 [facility] CONSULT CARDIAC REHAB 2022-04-30 00:50:47 [facility] PHASE 1 CBC HEMOGRAM 2022-04-29 09:05:00 [facility] BASIC METABOLIC PANEL 2022-04-29 09:05:00 [facility] ESTIMATED GFR 2022-04-29 09:05:00 [facility] XR CHEST 1 VW PORTABLE 2022-04-29 04:25:12 [facility] POC GLUCOSE 2022-04-29 02:09:00 [facility] POC GLUCOSE 2022-04-28 12:21:00 [facility] BASIC METABOLIC PANEL 2022-04-28 09:37:00 [facility] HC COMPLETE BLD COUNT 2022-04-28 09:37:00 [facility] W/AUTO DIFF LACTIC ACID LEVEL 2022-04-28 09:37:00 [facility] MAGNESIUM LEVEL 2022-04-28 09:37:00 [facility] PHOSPHORUS LEVEL 2022-04-28 09:37:00 [facility] PROTHROMBIN TIME WITH INR 2022-04-28 09:37:00 [facility] PARTIAL THROMBOPLASTIN 2022-04-28 09:37:00 [facility] TIME (PTT) ESTIMATED GFR 2022-04-28 09:37:00 [facility] ARTERIAL BLOOD GAS 2022-04-28 09:35:00 [facility] IONIZED CALCIUM, ARTERIAL 2022-04-28 09:35:00 [facility] TTE COMPLETE, W CONTRAST, 2022-04-28 07:30:00 Bibiana Kapoor [facility] W DOPPLER ([id number]) POC GLUCOSE 2022-04-28 01:59:00 [facility] POC GLUCOSE 2022-04-27 22:34:00 [facility] XR CHEST 2 VW 2022-04-27 20:39:00 [facility] P[facility]SE 2022-04-27 17:20:00 [facility] POC GLUCOSE 2022-04-27 13:37:00 [facility] POC GLUCOSE 2022-04-27 11:02:00 [facility] ECG 12-LEAD 2022-04-27 10:09:12 Cj Carvalho [facility] spital BASIC METABOLIC PANEL 2022-04-27 09:37:00 [facility] HC COMPLETE BLD COUNT 2022-04-27 09:37:00 [facility] W/AUTO DIFF LACTIC ACID LEVEL 2022-04-27 09:37:00 [facility] MAGNESIUM LEVEL 2022-04-27 09:37:00 [facility] O2 SATURATION, VENOUS 2022-04-27 09:37:00 [facility] PHOSPHORUS LEVEL 2022-04-27 09:37:00 [facility] PROTHROMBIN TIME WITH INR 2022-04-27 09:37:00 [facility] PARTIAL THROMBOPLASTIN 2022-04-27 09:37:00 [facility] TIME (PTT) ESTIMATED GFR 2022-04-27 09:37:00 [facility] XR CHEST 1 VW PORTABLE 2022-04-27 07:10:09 Eugenie Gomez [facility] POC GLUCOSE 2022-04-27 02:21:00 [facility] XR CHEST 1 VW PORTABLE 2022-04-27 00:37:11 [facility] 2022-04-26 22:52:00 Travis Merritt [facility] POC GLUCOSE 2022-04-26 19:02:00 Travis Merritt Shanon [facility] LINE/DRAIN REMOVAL 2022-04-26 15:54:31 [facility] XR CHEST 1 VW PORTABLE 2022-04-26 15:10:00 [facility] POC GLUCOSE 2022-04-26 13:51:00 Travis Merritt [facility] XR CHEST 1 VW PORTABLE 2022-04-26 13:30:00 Kandace Medrano [facility] ARTERIAL BLOOD GAS 2022-04-26 11:09:00 [facility] 1 VW PORTABLE 2022-04-26 09:40:53 Norberto Muhammad [facility] POC GLUCOSE 2022-04-26 09:25:00 Travis Merritt Shanon [facility] ECG 12-LEAD 2022-04-26 09:11:30 Cj Carvalho [facility] spital ACUTE KIDNEY INJURY RISK 2022-04-26 08:46:00 Cj Carvalho [facility] ASSESSMENT, NEPHROCHECK ARTERIAL BLOOD GAS 2022-04-26 07:39:00 Sabina [facility] BASIC METABOLIC PANEL 2022-04-26 07:36:00 [facility] COM[facility] 2022-04-26 07:36:00 [facility] W/AUTO DIFF IONIZED CALCIUM 2022-04-26 07:36:00 [facility] 2022-04-26 07:36[facility]00 [facility] MAGNESI[facility] 2022-04-26 07:36:00 [facility] O2 SATURATION, VENOUS 2022-04-26 07:36:00 Sabina [facility] PROTHROMBIN TIME WITH INR 2022-04-26 07:36:00 Gudelia De Oliveira [facility] PARTIAL THROMBOPLASTIN 2022-04-26 07:36:00 [facility] TIME (PTT) ESTIMATED GFR 2022-04-26 07:36:00 [facility] PHOSPHORUS LEVEL 2022-04-26 07:36:00 [facility] POC GLUCOSE 2022-04-26 05:20:00 [facility] ACUTE KIDNEY INJURY RISK 2022-04-26 03:06:00 Cj Carvalho [facility] ASSESSMENT, NEPHROCHECK POC GLUCOSE 2022-04-26 01:00:00 [facility] POC GLUCOSE 2022-04-25 23:54:00 [facility] POC GLUCOSE 2022-04-25 23:03:00 [facility] POC GLUCOSE 2022-04-25 22:10:00 [facility] POC GLUCOSE 2022-04-25 20:58:00 [facility] COVID-19 SEROLOGY PATIENT 2022-04-25 20:57:00 [facility] ART[facility] BLOOD GAS 2022-04-25 20:57:00 Norberto Muhammad [facility] COVID-19 ANTI-SPIKE IGG 2022-04-25 20:57:00 [facility] ANTIBODY TITER XR CHEST 1 VW PORTABLE 2022-04-25 20:24:11 [facility] 12-LEAD 2022-04-25 20:23:56 [facility] spital ACUTE KIDNEY INJURY RISK 2022-04-25 20:17:00 Cj Carvalho [facility] ASSESSMENT, NEPHROCHECK POC GLUCOSE 2022-04-25 19:58:00 [facility] ARTERIAL BLOOD GAS 2022-04-25 19:48:00 [facility] IONIZED CALCI[facility], ARTERIAL 2022-04-25 19:48:00 [facility] LACT[facility] ACID LEVEL 2022-04-25 19:47:00 [facility] BASIC METABOLIC PANEL 2022-04-25 19:47:00 Cj Carvalho [facility] HC COMPLETE BLD COUNT 2022-04-25 19:47:00 Cj Carvalho [facility] W/AUTO DIFF MAGNESIUM LEVEL 2022-04-25 19:47:00 Cj Carvalho spital PHOSPHORUS LEVEL 2022-04-25 19:47:00 Cj Carvalho ospital PROTHROMBIN TIME WITH INR 2022-04-25 19:47:00 Cj Carvalho [facility] PARTIAL THROMBOPLASTIN 2022-04-25 19:47:00 Cj Carvalho [facility] TIME (PTT) FIBRINOGEN 2022-04-25 19:47:00 Cj Carvalho spital ESTIMATED GFR 2022-04-25 19:47:00 Cj Carvalho Ho spital CONSULT CARDIAC REHAB 2022-04-25 19:40:57 Norberto Muhammad [facility] PHASE 1 POC ARTERIAL BLOOD GAS, 2022-04-25 19:10:00 [facility] COR[facility] AND LYTES ACUTE KIDNEY INJURY RISK 2022-04-25 18:55:00 [facility] ASSESSMENT, NEPHROCHECK FIBRINOGEN 2022-04-25 18:44:00 [facility] PLATELET COUNT 2022-04-25 18:44:00 [facility] PROTHROMBIN TIME WITH INR 2022-04-25 18:44:00 [facility] HEMOGLOBIN & HEMATOCRIT 2022-04-25 18:44:00 [facility] POC ARTERIAL BLOOD GAS, 2022-04-25 18:41:00 [facility] CORRECTED AND LYTES ACTIVATED CLOTTING TIME 2022-04-25 18:03:00 [facility] POC ARTERIAL BLOOD GAS, 2022-04-25 18:03:00 [facility] CORRECTED AND LYTES ACTIVATED CLOTTING TIME 2022-04-25 17:55:00 [facility] HEMOGLOBIN & HEMATOCRIT 2022-04-25 17:17:00 [facility] PLATELET COUNT 2022-04-25 17:17:00 [facility] PROTHROMBIN TIME WITH INR 2022-04-25 17:17:00 [facility] FIBRINOGEN 2022-04-25 17:17:00 [facility] ACTIVATED CLOTTING TIME 2022-04-25 17:17:00 [facility] POC ARTERIAL BLOOD GAS, 2022-04-25 17:15:00 [facility] CORRECTED AND LYTES ACTIVATED CLOTTING TIME 2022-04-25 16:44:00 [facility] POC ARTERIAL BLOOD GAS, 2022-04-25 16:43:00 [facility] CORRECTED AND LYTES ANESTHESIA TEJINDER 2022-04-25 16:26:19 Amado Moreau spital ACTIVATED CLOTTING TIME 2022-04-25 16:10:00 [facility] POC ARTERIAL BLOOD GAS, 2022-04-25 16:10:00 [facility] CORRECTED AND LYTES ACTIVATED CLOTTING TIME 2022-04-25 15:51:00 [facility] POC ARTERIAL BLOOD GAS, 2022-04-25 15:51:00 [facility] CORRECTED AND LYTES PA CATHETER 2022-04-25 15:24:28 Amado Moreau spital CENTRAL LINE 2022-04-25 14:13:12 Amado Moreau spital ACTIVATED CLOTTING TIME 2022-04-25 14:10:00 [facility] POC ARTERIAL BLOOD GAS, 2022-04-25 14:10:00 [facility] CORRECTED AND LYTES ARTERIAL LINE 2022-04-25 13:34:56 Amado Moreau spital OR AN ELECTIVE 2022-04-25 13:33:00 Amado Moreau spital ENDOTRACHEAL AIRWAY REPAIR OR REPLACEMENT, 2022-04-25 13:22:00 Travis Merritt [facility] MITRAL VALVE, WITH CARDIOPULMONARY BYPASS ABO AND RH CONFIRMATION BY 2022-04-25 11:00:00 [facility] PROTOCOL XR CHEST 2 VW 2022-04-23 19:52:00 [facility] URINALYSIS SCREEN AND 2022-04-23 19:26:00 [facility] MICROSCOPY, WITH REFLEX TO CULTURE URINE CULTURE 2022-04-23 19:26:00 [facility] LIPID PANEL 2022-04-23 19:11:00 [facility] MAGNESIUM LEVEL 2022-04-23 19:11:00 [facility] HEMOGLOBIN A1C 2022-04-23 19:11:00 [facility] PARTIAL THROMBOPLASTIN 2022-04-23 19:11:00 [facility] TIME (PTT) PROTHROMBIN TIME WITH INR 2022-04-23 19:11:00 [facility] COMPREHENSIVE METABOLIC 2022-04-23 19:11:00 [facility] PANEL HC COMPLETE BLD COUNT 2022-04-23 19:11:00 [facility] W/AUTO DIFF TYPE AND SCREEN 2022-04-23 19:11:00 [facility] BILIRUBIN DIRECT 2022-04-23 19:11:00 [facility] ESTIMATED GFR 2022-04-23 19:11:00 [facility] PREPARE PLATELET PHERESIS 2022-04-23 19:11:00 [facility] COVID-19 QUALITATIVE 2022-04-23 19:04:00 [facility] RT-PCR ECG PRE/POST OP 2022-04-23 18:59:29 [facility] CV MRI FUNCTION VIABILITY 2022-03-20 22:07:28 [facility] Travis [facility] CHF EVALUATION ESTIMATED GFR 2022-03-20 20:47:00 [facility] POC PANEL 2022-03-20 20:47:00 [facility] Plan of Care Planned Activity Planned Date Details Comments Source Future Scheduled 2022-05-22 HEPATITIS B VACCINES [facility] Test 10:25:23 (1 of 3 - 3-dose series) [code = HEPATITIS B VACCINES (1 of 3 - 3-dose series)] Future Scheduled 2022-05-22 Pneumococcal Vaccine: [facility] Test 10:25:23 Pediatrics (0 to 5 Years) and At-Risk Patients (6 to 64 Years) (1 - PCV) [code = Pneumococcal Vaccine: Pediatrics (0 to 5 Years) and At-Risk Patients (6 to 64 Years) (1 - PCV)] Future Scheduled 2022-05-22 Hepatitis C screening [facility] Test 10:25:23 (procedure) [code = 609571608] Future Scheduled 2022-05-22 COLONOSCOPY SCREENING [facility] Test 10:25:23 [code = COLONOSCOPY SCREENING] Future Scheduled 2022-05-22 SHINGLES VACCINES (1 [facility] Test 10:25:23 of 2) [code = SHINGLES VACCINES (1 of 2)] Future Scheduled 2022-05-22 COVID-19 VACCINE (3 - [facility] Test 10:25:23 Booster for Moderna series) [code = COVID-19 VACCINE (3 - Booster for Moderna series)] Future Scheduled 2022-05-22 INFLUENZA VACCINE Method [facility] Test 10:25:23 [code = INFLUENZA VACCINE] Future Scheduled 2022-03-15 INFLUENZA VACCINE (#1) [facility] Test 00:00:00 [code = INFLUENZA Medical Ce nter VACCINE (#1)] Future Scheduled 2021-07-[address] [facility] Test 00:00:00 (12+) [code = Medical Center DEPRESSION SCREENING (12+)] Future Scheduled 2009 SHINGLES VACCINES ([address] [facility] Test 00:00:00 of 2) [code = SHINGLES Medic al Center VACCINES (1 of 2)] Future Scheduled [address] [facility] Test 00:00:00 (procedure) [code = [facility] 43394584] Future Scheduled 1978 DTAP/TDAP/TD VACCINES [facility] Test 00:00:00 (1 - Tdap) [code = Medical C enter DTAP/TDAP/TD VACCINES (1 - Tdap)] Future Scheduled 1977 HEPATITIS C SCREENING [facility] Test 00:00:00 [code = HEPATITIS C Medical Center SCREENING] Future Scheduled 1960-01-28 COVID-19 VACCINE (#1) [facility] Test 00:00:00 [code = COVID-[address] VACCINE (#1)] Future Scheduled [address] [facility] Test 00:00:00 (combo) [code = CT Medical C enter Colonography (combo)] Future Scheduled [address] [facility] 00:00:00 malignant neoplasm of Medica l Center colon (procedure) [code = 826866322] Future Scheduled [address] [facility] Test 00:00:00 malignant ne[facility] colon (procedure) [code = 622283416] Future Scheduled [address] [facility] Test 00:00:00 malignant neoplasm [facility] Center colon (procedure) [code = 789957995] Future Scheduled [address] [facility] [facility] Test 00:00:00 malignant neoplasm of Medica l Center colon (procedure) [code = 275659274] Future Scheduled 1959 Sigmoidoscopy [code [facility] 00:[facility] Sigmoidoscopy] Medical Michelee r Encounters Start End Encounter Admission Attending Care Care Encounter Source Date/Time Date/Time Type Type Clinicians Facility Department ID 2022-01-30 [facility] [id number] Common 11:13:02 Gudelia [id number] [facility] 2021-08-09 [facility] [id number] Common 14:16:45 Gudelia [id number] [facility] 2021-08-09 [facility] [id number] Common 13:57:32 Gudelia [id number] [facility] 2021-08-09 [facility] ST[facility] [id number] Common 13:47:54 Gudelia [id number] [facility] 2021-08-09 Outpatient [place], STLMLC STLMLC [id number] Common 13:40:57 Gudelia [id number] [facility] 2021-08-09 Outpatient [place], STLMLC STLMLC [id number] Common 13:35:21 Gudelia [id number] [facility] 2021-08-09 Outpatient [facility], STLMLC STLMLC [id number] Common 13:28:46 Gudelia [id number] [facility] 2021-08-09 [facility], STLMLC STLMLC [id number] Common 13:20:34 Gudelia [id number] [facility] 2022-04-25 2022-05-01 Hospital René, 1.2.840.1 [id number] Methodi 05:31:00 14:46:00 Encounter Travis Delacruz [id number] 3.430.2.7 Hospit a .3.163940 l .8 2022-04-25 2022-05-01 Inpatient RENÉ, [facility] [id number] [place] [address] 00:00:00 00:00:00 TRAVIS Guzman[address] [facility] 2022-04-23 2022-04-29 Pre-Admiss René, 1.2.840.1 [id number] Methodi 13:30:00 00:05:48 ion Travis Delacruz 17094.1.[address] Testing 3.430.2.7 Hospit a .3.162413 l .8 2022-04-25 2022-04-25 Surgery René, 1.2.840.1 [id number] Methodi 08:15:00 15:15:00 Travis Delacruz [id number] 3.430.2.7 Hospit a .3.333738 l .8 2022-04-25 2022-04-25 Anesthesia Amado Moreau 1.2.840.1 [id number] [facility] 08:22:00 14:37:00 Event Oscar Pretty 80104.1.[address] 3.430.2.7 Hospit a .3.764753 l .8 2022-04-25 2022-04-25 Travel 1.2.840.1 1.2.389.766 [id number] [facility] 00:00:00 00:00:[address] 3.430.2.7 0.2.7.3.698 Ho spita .3.563119 084.8 l .8 2022-04-23 2022-04-23 [facility] Bibiana Kapoor 1.2.840.1 [id number] Methodi 14:39:58 23:59:00 Encounter Travis Merritt [id number] 3.430.2.7 Hospit a .3.939733 l .8 2022-04-23 2022-04-23 Outpatient [facility] [id number] [place] 00:00:00 00:00:00 TRAVIS [address] 2022-04-23 2022-04-23 [facility] [id number] [place] 00:00:00 00:00:[address] TRAVIS [address] 2022-04-23 2022-04-23 Travel 1.2.840.1 1.2.019.852 [id number] [facility]i 00:00:00 00:00:[address] 3.430.2.7 0.2.7.3.698 Ho spita .3.788610 084.8 l .8 2022-03-26 2022-03-26 Prep for Kapoor, 1.2.840.1 [id number] Methodi 00:00:00 00:00:00 Surgery [place] 52370.1.[address] 3.430.2.7 Hospit a .3.899854 l .8 2022-03-22 2022-03-22 Documentat Armen, 1.2.840.1 [id number] Methodi 00:00:00 00:00:00 ion Michelle 08427.1.[address] Pepper 3.430.2.7 Hospit a .3.884814 l .8 2022-03-20 2022-03-20 [facility] René, 1.2.840.1 [id number] Methodi 15:00:00 23:59:00 Encounter Travis Delacruz 36714.1.[address] 3.430.2.7 Hospit a .3.151186 l .8 2022-03-20 2022-03-20 [facility] René, 1.2.840.1 [id number] Methodi 14:15:00 14:52:35 Visit Travis Delacruz 58848.1.[address] 3.430.2.7 Hospit a .3.214504 l .8 2022-03-20 2022-03-20 [facility] [id number] [place] 00:00:00 00:00:00 TRAVIS [address] 2022-03-20 2022-03-20 [facility] [id number] [place] 00:00:00 00:00:[address] TRAVIS [address] 2022-03-20 2022-03-20 Travel 1.2.840.1 1.2.492.429 [id number] Methodi 00:00:00 00:00:[address] 3.430.2.7 0.2.7.3.698 Ho spita .3.725025 084.8 l .8 2022-03-15 2022-03-15 Travel 1.2.840.1 1.2.869.939 [id number] Methodi 00:00:00 00:00:[address] 3.430.2.7 0.2.7.3.698 Ho spita .3.307333 084.8 l .8 2021-06-22 2021-06-22 (IN/ASP) STLMLC STLMLC [id number] C ommon 00:00:00 00:00:00 INJ ASP [facility] 2021-06-07 2021-06-07 (IN/ASP) STLMLC STLMLC [id number] C ommon 00:00:00 00:00:00 INJ ASP [facility] 2021-05-22 2021-05-22 (TEL) STLMLC STLMLC [id number] Co mmon 00:00:00 00:00:00 [facility] 2021-05-15 2021-05-15 (TEL) STLMLC STLMLC [id number] Co mmon 00:00:00 00:00:00 [facility] 2021-05-01 2021-05-01 NON-BILLAB STLMLC STLMLC [id number] Common 00:00:00 00:00:00 LE VISIT [facility] 2021-04-20 2021-04-20 (TEL) STLMLC STLMLC [id number] Co mmon 00:00:00 00:00:00 [facility] 2021-03-30 2021-03-30 Postop STLMLC STLMLC [id number] Co mmon 00:00:00 00:00:00 visit [facility] 2021-03-21 2021-03-21 NON-BILLAB STLMLC STLMLC [id number] Common 00:00:00 00:00:00 LE VISIT [facility] 2021-03-13 2021-03-13 (TEL) STLMLC STLMLC [id number] Co mmon 00:00:00 00:00:00 [facility] 2021-03-09 2021-03-09 (TEL) STLMLC STLMLC [id number] Co mmon 00:00:00 00:00:00 [facility] 2021-03-06 2021-03-06 (TEL) STLMLC STLMLC [id number] Co mmon 00:00:00 00:00:00 [facility] 2021-03-03 2021-03-03 OFFICE STLMLC STLMLC [id number] Co mmon 00:00:00 00:00:00 VISIT [facility] ESTAB PT - CHI LEVEL 4 [facility] 2021-02-27 2021-02-27 (TEL) STLMLC STLMLC [id number] Co mmon 00:00:00 00:00:00 [facility] 2021-02-21 2021-02-21 (TEL) STLMLC STLMLC [id number] Co mmon 00:00:00 00:00:00 [facility] 2021-02-21 2021-02-21 OFFICE STLMLC STLMLC [id number] Co mmon 00:00:00 00:00:00 VISIT [facility] PT - CHI LEVEL 4 [facility] 2021-02-17 2021-02-17 (TEL) STLMLC STLMLC [id number] Co mmon 00:00:00 00:00:00 [facility] 2021-02-06 2021-02-06 OFFICE STLMLC STLMLC [id number] Co mmon 00:00:00 00:00:00 VISIT EST Spir it PT LEVEL 3 [facility] 2021-01-23 2021-01-23 OFFICE STLMLC STLMLC [id number] Co mmon 00:00:00 00:00:00 VISIT EST Spir it PT LEVEL 3 [facility] 2021-01-17 2021-01-17 (TEL) STLMLC STLMLC [id number] Co mmon 00:00:00 00:00:00 [facility] 2021-01-10 2021-01-10 OFFICE STLMLC STLMLC [id number] Co mmon 00:00:00 00:00:00 VISIT NEW Spir it PT LEVEL 3 [facility] 2020-08-10 2020-08-10 Outpatient EL IXAOSOU, [facility] SLE [id number] [facility]H 00:00:00 00:00:00 ERROL 2020-08-01 2020-08-01 Outpatient EL DUMONT, SLE [facility] [id number] [facility] 00:00:00 00:00:00 SHANIKA 2020-07-27 2020-07-27 Outpatient EL SLE [facility] [id number] [facility]H 00:00:00 00:00:00 2020-07-06 2020-07-06 Outpatient CHARLY [facility]GS [facility] [id number] SLE 00:00:00 00:00:00 ERROL 2020-06-01 2020-06-01 Emergency ER [facility] Emergency [id number] SLE 18:04:00 18:04:00 Results Test Description Test Time Test Comments Results Result Comments Source POC glucose 2022-05-01 17:00:00 Test Item Value Reference Range Interpretation Comme nts POC glucose (test code = 119 mg/dL 65-99 H Ope rator Name: Kaelyn Peraza 16173-5) JustaDevice ID: [id number]: [facility] 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 services Interpretation (test code = Abnormal 94402-5) [facility] 12 [id number] 00:48:39 Test Item Value Reference Range Interpretation Comments Ventricular rate (test code = 253) Atrial rate (test code = 255) OR interval (test code = 266) QRSD interval (test code = 260) QT interval (test code = 264) QTC interval (test code = 265) P axis 1 (test code = 267) QRS axis 1 (test code = 268) T wave axis (test code = 270) EKG impression (test Normal sinus code = 273) rhythm-Minimal voltage criteria for LVH, may be normal variant ( R in aVL )-Inferior infarct (cited on or before 26-APR-2022)-Abnormal ECG-In automated comparison with ECG of 26-APR-2022 04:11,-No significant change was found- [facility] platelet [id number] 21:39:00 Test Item Value Reference Range Interpretation Comments Product name (test code Platelets Aph LR, = 25) Path Red cont1 Unit number (test code = [id number]) Product code (test code X7208M31 = 3092) Dispense status (test Returned to not code = 24) transfused Blood expiration date (test code = 302) Blood type code (test code = 308) Blood type (test code = A POSITIVE 1314) Compatibility (test code Not required = 6400) [facility] [id number] 20:48:00 Test Item Value Reference Range Interpretation Comments Product name (test code Red Blood Cells -1, = 25) Leukored Unit number (test code = [id number]) Product code (test code H8110F87 = 3092) Dispense status (test Returned to not code = 24) transfused Blood expiration date (test code = 302) Blood type code (test code = 308) Blood type (test code = O NEGATIVE 1314) Compatibility (test code Compatible = 6400) [facility] arterial blood gas, corrected and [id number] 19:13:00 Test Item Value Reference Range Interpretation Comments pH, arterial (test 7.35-7.45 code = 2744-1) pCO2, arterial (test See_Comment [Autom ated message] code = 2019-8) The system [facility] generated this result transmitted ref erence range: 35 - 45 mmHg. The reference r kelvin was not used to interpret this result as normal/abnor mal. pO2, arterial (test See_Comment H [Automa josefina message] code = 2703-7) The system ich generated this result transmitted ref erence range: 80 - 90 mmHg. The reference r kelvin was not used to interpret this result as normal/abnor mal. Temperature, Celsius Degrees C (test code = 8310-5) O2 saturation, 95-100 arterial (test code = 2708-6) pH, arterial corrected (test code = 46497-0) pCO2, arterial mmHg corrected (test code = 29581-0) pO2, arterial mmHg Commercial Marketing Specialist ID: Cheli ollard corrected (test code Annairist hDevice ID: = [id number]) [id number] Base excess, arterial See_Comment L [Auto mated message] (test code = 1925-7) The sys tem which generated this result transmitted ref erence range: -2 - 2 m Eq/L. The reference r kelvin was not used to interpret this result as normal/abnor mal. Hemoglobin, syringe 9.8 g/dL 14.0-18.0 L (test code = 718-7) Potassium, syringe See_Comment [Automat ed message] (test code = 2007) The syste m which generated this result transmitted ref erence range: 3.5 - 5. 0 mEq/L. The refe rence range was not u sed to interpret this result as normal/abnor mal. Sodium, syringe (test See_Comment [Auto mated message] code = 2947-0) The system wh ich generated this result transmitted ref erence range: 135 - 14 8 mEq/L. The refe rence range was not u sed to interpret this result as normal/abnor mal. Ionized calcium, 1.27 mmol/L 1.11-1.32 arterial (test code = 73006-3) Glucose, syringe 144 mg/dL 65-99 H (test code = 2345-7) Lactic acid, syringe 1.5 mmol/L 0.5-2.2 (test code = 95685-3) Lab Interpretation Abnormal (test code = 31429-9) [facility] [id number] 18:06:00 Test Item Value Reference Range Interpretation Comments Activated clotting See_Comment Commercial Marketing Specialist Name: Karen time (test code = Blaire vice ID: [id number]) [id number] [Autom ated message] The sy stem which generated this result transmitted ref erence range: 96 - 152 sec. The reference range was not used to interpr et this result as jordyn l/abnormal. [facility] Pre/Post [id number] 01:37:55 Test Item Value Reference Range Interpretation Comments Ventricular rate (test code = 253) Atrial rate (test code = 255) OR interval (test code = 266) QRSD interval (test code = 260) QT interval (test code = 264) QTC interval (test code = 265) P axis 1 (test code = 267) QRS axis 1 (test code = 268) T wave axis (test code = 270) EKG impression (test Normal sinus code = 273) rhythm-Normal ECG-No previous ECGs available-Electronica lly Signed By Shannon HATFIELD, Reji ([id number]) on 04/23/2022 8:37:54 [facility] [Presence] in Respiratory specimen by JAYLA with probe [id number] 22:24:06 Test Item Value Reference Range Interpretation Comments SARS-CoV-2 (COVID-19) RNA Not detected [Presence] in Respiratory specimen by JAYLA with probe detection (test code = 02599-3) Whether patient is employed in a Unknown healthcare setting (test code = 05980-0) Whether the patient has symptoms Unknown related to condition of interest (test code = 17603-6) Whether the patient was Unknown hospitalized for condition of interest (test code = 76425-0) Whether the patient was admitted Unknown to intensive care unit (ICU) for condition of interest (test code = 02356-5) Whether patient resides in a Unknown congregate care setting (test code = 22815-2) status (test code = Unknown 56609-1) Date and time of symptom onset Unknown (test code = 57042-0) [facility] [id number] 20:30:00 Test Item Value Reference Range Interpretation Comments Urine culture (test SEE COMMENT Bacteriu americo screen code = 4667099) [id number] 20:50:01 Test Item Value Reference Range Interpretation Comments POC creatinine (test 1.2 mg/dl 0.7-1.2 Operato r Name: code = 97546-5) Muriel stanleyDevice ID: [id number] POC hematocrit (test 43 % 41-51 code = 4544-3) [facility]-GLUCOSE [id number] 08:17:00 Test Item Value Reference Range Interpretation Comments POC-GLUCOSE METER 90 mg/dL 70-110 : TESTED A T [facility] 6720 (BEAKER) (test code = ROSMERY Jimenez [facility], 1538) [address]: Commercial Marketing Specialist/Techni yamini ID = [id number] for VERITO THAKUR BASIC METABOLIC [id number] 02:36:00 Test Item Value Reference Range Interpretation Comments SODIUM (BEAKER) 138 meq/L 136-145 (test code = 381) POTASSIUM (BEAKER) 3.8 meq/L 3.5-5.1 (test code = 379) CHLORIDE (BEAKER) 101 meq/L 98-107 (test code = 382) CO2 (BEAKER) (test 27 meq/L 22-29 code = 355) BLOOD UREA NITROGEN 26 mg/dL 7-21 H (BEAKER) (test code = 354) CREATININE (BEAKER) 1.24 mg/dL 0.57-1.25 (test code = 358) GLUCOSE RANDOM 146 mg/dL 70-105 H (BEAKER) (test code = 652) CALCIUM (BEAKER) 7.9 mg/dL 8.4-10.2 L (test code = 697) EGFR (BEAKER) (test 59 mL/min/1.73 ESTIMA JOSEFINA GFR IS code = 1092) sq m NOT ACCURATE CREATININE CLEARANCE IN PREDICTING GLOMERULAR FILTRATION RATE . ESTIMATED GFR I S NOT APPLICABLE FOR DIALYSIS PATIEN TS. Commercial Marketing Specialist ID - [id number] 02:35:00 Test Item Value Reference Range Interpretation Comments MAGNESIUM (BEAKER) (test code = 2.1 mg/dL 1.6-2.6 627) Commercial Marketing Specialist ID - EDASICBC W/PLT COUNT & AUTO [id number] 02:14:00 Test Item Value Reference Range Interpretation Comments WHITE BLOOD CELL COUNT (BEAKER) 8.9 K/ L 3.5-10.5 (test code = 775) RED BLOOD CELL COUNT (BEAKER) 2.77 M/ L 4.63-6.08 L (test code = 761) HEMOGLOBIN (BEAKER) (test code = 8.1 GM/DL 13.7-17.5 L 410) HEMATOCRIT (BEAKER) (test code = 25.3 % 40.1-51.0 L 411) MEAN CORPUSCULAR VOLUME (BEAKER) 91.3 fL 79.0-92.2 (test code = 753) MEAN CORPUSCULAR HEMOGLOBIN 29.2 pg 25.7-32.2 (BEAKER) (test code = 751) MEAN CORPUSCULAR HEMOGLOBIN CONC 32.0 GM/DL 32.3-36.5 L (BEAKER) (test code = 752) RED CELL DISTRIBUTION WIDTH 13.6 % 11.6-14.4 (BEAKER) (test code = 412) PLATELET COUNT (BEAKER) (test 176 K/CU MM 150-450 code = 756) MEAN PLATELET VOLUME (BEAKER) 9.8 fL 9.4-12.4 (test code = 754) NUCLEATED RED BLOOD CELLS 0 /100 WBC 0-0 (BEAKER) (test code = 413) NEUTROPHILS RELATIVE PERCENT 77 % (BEAKER) (test code = 429) LYMPHOCYTES RELATIVE PERCENT 11 % (BEAKER) (test code = 430) MONOCYTES RELATIVE PERCENT 7 % (BEAKER) (test code = 431) EOSINOPHILS RELATIVE PERCENT 4 % (BEAKER) (test code = 432) BASOPHILS RELATIVE PERCENT 0 % (BEAKER) (test code = 437) NEUTROPHILS ABSOLUTE COUNT 6.87 K/ L 1.78-5.38 H (BEAKER) (test code = 670) LYMPHOCYTES ABSOLUTE COUNT 0.94 K/ L 1.32-3.57 L (BEAKER) (test code = 414) MONOCYTES ABSOLUTE COUNT (BEAKER) 0.62 K/ L 0.30-0.82 (test code = 415) EOSINOPHILS ABSOLUTE COUNT 0.32 K/ L 0.04-0.54 (BEAKER) (test code = 416) BASOPHILS ABSOLUTE COUNT (BEAKER) 0.03 K/ L 0.01-0.08 (test code = 417) IMMATURE GRANULOCYTES-RELATIVE 1 % 0-1 PERCENT (BEAKER) (test code = 2801) POCT-GLUCOSE [id number] 21:04:00 Test Item Value Reference Range Interpretation Comments POC-GLUCOSE METER 102 mg/dL 70-110 : TESTED A T [facility] 6720 (BEAKER) (test code = [facility], [facility]) [address]: Commercial Marketing Specialist/Techni yamini ID = [id number] for TOBI CARPENTERO POCT-GLUCOSE [id number] 17:13:00 Test Item Value Reference Range Interpretation Comments POC-GLUCOSE METER 94 mg/dL 70-110 : TESTED A T [facility] 6720 (BEAKER) (test code = [facility], [facility]) [address]: Commercial Marketing Specialist/Techni yamini ID = [id number] for KIZHAKEKATTIL, GERALD POCT-GLUCOSE [id number] 12:37:00 Test Item Value Reference Range Interpretation Comments POC-GLUCOSE METER 126 mg/dL 70-110 H : TESTED A T [facility] 6720 (BEAKER) (test code = [facility], 1538) 504[address]: Commercial Marketing Specialist/Techni yamini ID = [id number] for KIZHAKEKATTIL, GERALD POCT-GLUCOSE [id number] 09:51:00 Test Item Value Reference Range Interpretation Comments POC-GLUCOSE METER 135 mg/dL 70-110 H : TESTED A T [facility] 6720 (BEAKER) (test code = [facility], 1538) [address]: Commercial Marketing Specialist/Techni yamini ID = [id number] for ANDREW HYATT BASIC METABOLIC [id number] 05:44:00 Test Item Value Reference Range Interpretation Comments SODIUM (BEAKER) 137 meq/L 136-145 (test code = 381) POTASSIUM (BEAKER) 3.9 meq/L 3.5-5.1 (test code = 379) CHLORIDE (BEAKER) 100 meq/L 98-107 (test code = 382) CO2 (BEAKER) (test 29 meq/L 22-29 code = 355) BLOOD UREA NITROGEN 29 mg/dL 7-21 H (BEAKER) (test code = 354) CREATININE (BEAKER) 1.33 mg/dL 0.57-1.25 H (test code = 358) GLUCOSE RANDOM 102 mg/dL 70-105 (BEAKER) (test code = 652) CALCIUM (BEAKER) 7.8 mg/dL 8.4-10.2 L (test code = 697) EGFR (BEAKER) (test 55 mL/min/1.73 ESTIMA JOSEFINA GFR IS code = 1092) sq m NOT ACCURATE CREATININE CLEARANCE IN PREDICTING GLOMERULAR FILTRATION RATE . ESTIMATED GFR I S NOT APPLICABLE FOR DIALYSIS PATIEN TS. Commercial Marketing Specialist ID - ROSA [id number] 05:43:00 Test Item Value Reference Range Interpretation Comments MAGNESIUM (BEAKER) (test code = 2.2 mg/dL 1.6-2.6 627) Commercial Marketing Specialist ID - ROSA MURIC [id number] 05:43:00 Test Item Value Reference Range Interpretation Comments URIC ACID (BEAKER) (test code = 7.3 mg/dL 2.6-7.2 H 773) Commercial Marketing Specialist ID - ROSA MLACTATE DEHYDROGENASE (LDH)2020-06-14 05:43:00 Test Item Value Reference Range Interpretation Comments LACTATE DEHYDROGENASE (BEAKER) (test 383 U/L 125-220 H code = 635) Commercial Marketing Specialist ID - ROSA MCBC W/PLT COUNT & AUTO [id number] 05:20:00 Test Item Value Reference Range Interpretation Comments WHITE BLOOD CELL COUNT (BEAKER) 9.8 K/ L 3.5-10.5 (test code = 775) RED BLOOD CELL COUNT (BEAKER) 2.72 M/ L 4.63-6.08 L (test code = 761) HEMOGLOBIN (BEAKER) (test code = 8.1 GM/DL 13.7-17.5 L 410) HEMATOCRIT (BEAKER) (test code = 25.0 % 40.1-51.0 L 411) MEAN CORPUSCULAR VOLUME (BEAKER) 91.9 fL 79.0-92.2 (test code = 753) MEAN CORPUSCULAR HEMOGLOBIN 29.8 pg 25.7-32.2 (BEAKER) (test code = 751) MEAN CORPUSCULAR HEMOGLOBIN CONC 32.4 GM/DL 32.3-36.5 (BEAKER) (test code = 752) RED CELL DISTRIBUTION WIDTH 13.9 % 11.6-14.4 (BEAKER) (test code = 412) PLATELET COUNT (BEAKER) (test 163 K/CU MM 150-450 code = 756) MEAN PLATELET VOLUME (BEAKER) 10.4 fL 9.4-12.4 (test code = 754) NUCLEATED RED BLOOD CELLS 0 /100 WBC 0-0 (BEAKER) (test code = 413) NEUTROPHILS RELATIVE PERCENT 75 % (BEAKER) (test code = 429) LYMPHOCYTES RELATIVE PERCENT 12 % (BEAKER) (test code = 430) MONOCYTES RELATIVE PERCENT 9 % (BEAKER) (test code = 431) EOSINOPHILS RELATIVE PERCENT 3 % (BEAKER) (test code = 432) BASOPHILS RELATIVE PERCENT 0 % (BEAKER) (test code = 437) NEUTROPHILS ABSOLUTE COUNT 7.34 K/ L 1.78-5.38 H (BEAKER) (test code = 670) LYMPHOCYTES ABSOLUTE COUNT 1.17 K/ L 1.32-3.57 L (BEAKER) (test code = 414) MONOCYTES ABSOLUTE COUNT (BEAKER) 0.86 K/ L 0.30-0.82 H (test code = 415) EOSINOPHILS ABSOLUTE COUNT 0.32 K/ L 0.04-0.54 (BEAKER) (test code = 416) BASOPHILS ABSOLUTE COUNT (BEAKER) 0.03 K/ L 0.01-0.08 (test code = 417) IMMATURE GRANULOCYTES-RELATIVE 1 % 0-1 PERCENT (BEAKER) (test code = 2801) BLOOD [id number] 23:00:00 Test Item Value Reference Range Interpretation Comments CULTURE (BEAKER) (test No growth in 5 days code = 1095) BLOOD [id number] 23:00:00 Test Item Value Reference Range Interpretation Comments CULTURE (BEAKER) (test No growth in 5 days code = 1095) POCT-GLUCOSE [id number] 20:46:00 Test Item Value Reference Range Interpretation Comments POC-GLUCOSE METER 131 mg/dL 70-110 H : TESTED A T [facility] 6720 (BEAKER) (test code = [facility], 1538) 448[address]: Commercial Marketing Specialist/Techni yamini ID = [id number] for THERON MONTALVO POCT-GLUCOSE [id number] 17:25:00 Test Item Value Reference Range Interpretation Comments POC-GLUCOSE METER 100 mg/dL 70-110 : TESTED A T [facility] 6720 (BEAKER) (test code = [facility], 1538) 756[address]: Commercial Marketing Specialist/Techni yamini ID = [id number] for GERALD CÁRDENAS POCT-GLUCOSE [id number] 11:43:00 Test Item Value Reference Range Interpretation Comments POC-GLUCOSE METER 78 mg/dL 70-110 : TESTED A T [facility] 6720 (BEAKER) (test code = [facility], 153) 28[address]: Commercial Marketing Specialist/Techni yamini ID = [id number] for CARLOS GRAYIA POCT-GLUCOSE [id number] 06:39:00 Test Item Value Reference Range Interpretation Comments POC-GLUCOSE METER 91 mg/dL 70-110 : TESTED A T [facility] 6720 (BEAKER) (test code = [facility], 153) 43112: Commercial Marketing Specialist/Techni yamini ID = [id number] for BRENDA CARRASQUILLOAE [id number] 03:35:00 Test Item Value Reference Range Interpretation Comments MAGNESIUM (BEAKER) (test code = 2.0 mg/dL 1.6-2.6 627) Commercial Marketing Specialist ID - [id number] 03:35:00 Test Item Value Reference Range Interpretation Comments PHOSPHORUS (BEAKER) (test code = 2.4 mg/dL 2.3-4.7 604) Commercial Marketing Specialist ID - EDASIBASIC METABOLIC [id number] 03:35:00 Test Item Value Reference Range Interpretation Comments SODIUM (BEAKER) 138 meq/L 136-145 (test code = 381) POTASSIUM (BEAKER) 3.4 meq/L 3.5-5.1 L (test code = 379) CHLORIDE (BEAKER) 99 meq/L 98-107 (test code = 382) CO2 (BEAKER) (test 30 meq/L 22-29 H code = 355) BLOOD UREA NITROGEN 38 mg/dL 7-21 H (BEAKER) (test code = 354) CREATININE (BEAKER) 1.27 mg/dL 0.57-1.25 H (test code = 358) GLUCOSE RANDOM 107 mg/dL 70-105 H (BEAKER) (test code = 652) CALCIUM (BEAKER) 7.8 mg/dL 8.4-10.2 L (test code = 697) EGFR (BEAKER) (test 58 mL/min/1.73 ESTIMA JOSEFINA GFR IS code = 1092) sq m NOT ACCURATE CREATININE CLEARANCE IN PREDICTING GLOMERULAR FILTRATION RATE . ESTIMATED GFR I S NOT APPLICABLE FOR DIALYSIS PATIEN TS. Commercial Marketing Specialist ID - EDASICBC W/PLT COUNT & AUTO [id number] 03:17:00 Test Item Value Reference Range Interpretation Comments WHITE BLOOD CELL COUNT (BEAKER) 10.2 K/ L 3.5-10.5 (test code = 775) RED BLOOD CELL COUNT (BEAKER) 2.71 M/ L 4.63-6.08 L (test code = 761) HEMOGLOBIN (BEAKER) (test code = 7.9 GM/DL 13.7-17.5 L 410) HEMATOCRIT (BEAKER) (test code = 24.8 % 40.1-51.0 L 411) MEAN CORPUSCULAR VOLUME (BEAKER) 91.5 fL 79.0-92.2 (test code = 753) MEAN CORPUSCULAR HEMOGLOBIN 29.2 pg 25.7-32.2 (BEAKER) (test code = 751) MEAN CORPUSCULAR HEMOGLOBIN CONC 31.9 GM/DL 32.3-36.5 L (BEAKER) (test code = 752) RED CELL DISTRIBUTION WIDTH 13.6 % 11.6-14.4 (BEAKER) (test code = 412) PLATELET COUNT (BEAKER) (test 139 K/CU MM 150-450 L code = 756) MEAN PLATELET VOLUME (BEAKER) 10.4 fL 9.4-12.4 (test code = 754) NUCLEATED RED BLOOD CELLS 0 /100 WBC 0-0 (BEAKER) (test code = 413) NEUTROPHILS RELATIVE PERCENT 77 % (BEAKER) (test code = 429) LYMPHOCYTES RELATIVE PERCENT 9 % (BEAKER) (test code = 430) MONOCYTES RELATIVE PERCENT 10 % (BEAKER) (test code = 431) EOSINOPHILS RELATIVE PERCENT 4 % (BEAKER) (test code = 432) BASOPHILS RELATIVE PERCENT 1 % (BEAKER) (test code = 437) NEUTROPHILS ABSOLUTE COUNT 7.77 K/ L 1.78-5.38 H (BEAKER) (test code = 670) LYMPHOCYTES ABSOLUTE COUNT 0.89 K/ L 1.32-3.57 L (BEAKER) (test code = 414) MONOCYTES ABSOLUTE COUNT (BEAKER) 0.98 K/ L 0.30-0.82 H (test code = 415) EOSINOPHILS ABSOLUTE COUNT 0.38 K/ L 0.04-0.54 (BEAKER) (test code = 416) BASOPHILS ABSOLUTE COUNT (BEAKER) 0.06 K/ L 0.01-0.08 (test code = 417) IMMATURE GRANULOCYTES-RELATIVE 1 % 0-1 PERCENT (BEAKER) (test code = 2801) CALCIUM, [id number] 03:09:00 Test Item Value Reference Range Interpretation Comments CALCIUM IONIZED (BEAKER) (test 1.04 mmol/L 1.12-1.27 L code = 698) PH, BLOOD (BEAKER) (test code = 7.50 1810) VANCOMYCIN LEVEL, [id number] 11:35:00 Test Item Value Reference Range Interpretation Comments VANCOMYCIN TROUGH (BEAKER) (test 8.9 ug/mL 10.0-20.0 L code = 522) [employer] Specialist ID - [id number] W/PLT COUNT & AUTO [id number] 06:04:00 Test Item Value Reference Range Interpretation Comments WHITE BLOOD CELL COUNT (BEAKER) 9.7 K/ L 3.5-10.5 (test code = 775) RED BLOOD CELL COUNT (BEAKER) 2.83 M/ L 4.63-6.08 L (test code = 761) HEMOGLOBIN (BEAKER) (test code = 8.4 GM/DL 13.7-17.5 L 410) HEMATOCRIT (BEAKER) (test code = 26.2 % 40.1-51.0 L 411) MEAN CORPUSCULAR VOLUME (BEAKER) 92.6 fL 79.0-92.2 H (test code = 753) MEAN CORPUSCULAR HEMOGLOBIN 29.7 pg 25.7-32.2 (BEAKER) (test code = 751) MEAN CORPUSCULAR HEMOGLOBIN CONC 32.1 GM/DL 32.3-36.5 L (BEAKER) (test code = 752) RED CELL DISTRIBUTION WIDTH 13.7 % 11.6-14.4 (BEAKER) (test code = 412) PLATELET COUNT (BEAKER) (test 129 K/CU MM 150-450 L code = 756) MEAN PLATELET VOLUME (BEAKER) 10.5 fL 9.4-12.4 (test code = 754) NUCLEATED RED BLOOD CELLS 0 /100 WBC 0-0 (BEAKER) (test code = 413) NEUTROPHILS RELATIVE PERCENT 78 % (BEAKER) (test code = 429) LYMPHOCYTES RELATIVE PERCENT 8 % (BEAKER) (test code = 430) MONOCYTES RELATIVE PERCENT 12 % (BEAKER) (test code = 431) EOSINOPHILS RELATIVE PERCENT 2 % (BEAKER) (test code = 432) BASOPHILS RELATIVE PERCENT 0 % (BEAKER) (test code = 437) NEUTROPHILS ABSOLUTE COUNT 7.51 K/ L 1.78-5.38 H (BEAKER) (test code = 670) LYMPHOCYTES ABSOLUTE COUNT 0.72 K/ L 1.32-3.57 L (BEAKER) (test code = 414) MONOCYTES ABSOLUTE COUNT (BEAKER) 1.12 K/ L 0.30-0.82 H (test code = 415) EOSINOPHILS ABSOLUTE COUNT 0.21 K/ L 0.04-0.54 (BEAKER) (test code = 416) BASOPHILS ABSOLUTE COUNT (BEAKER) 0.03 K/ L 0.01-0.08 (test code = 417) IMMATURE GRANULOCYTES-RELATIVE 1 % 0-1 PERCENT (BEAKER) (test code = 2801) BASIC METABOLIC [id number] 05:37:00 Test Item Value Reference Range Interpretation Comments SODIUM (BEAKER) 140 meq/L 136-145 (test code = 381) POTASSIUM (BEAKER) 3.5 meq/L 3.5-5.1 (test code = 379) CHLORIDE (BEAKER) 101 meq/L 98-107 (test code = 382) CO2 (BEAKER) (test 29 meq/L 22-29 code = 355) BLOOD UREA NITROGEN 48 mg/dL 7-21 H (BEAKER) (test code = 354) CREATININE (BEAKER) 1.37 mg/dL 0.57-1.25 H (test code = 358) GLUCOSE RANDOM 91 mg/dL 70-105 (BEAKER) (test code = 652) CALCIUM (BEAKER) 8.1 mg/dL 8.4-10.2 L (test code = 697) EGFR (BEAKER) (test 53 mL/min/1.73 ESTIMA JOSEFINA GFR IS code = 1092) sq m NOT ACCURATE CREATININE CLEARANCE IN PREDICTING GLOMERULAR FILTRATION RATE . ESTIMATED GFR I S NOT APPLICABLE FOR DIALYSIS PATIEN TS. Commercial Marketing Specialist ID - [id number] 05:37:00 Test Item Value Reference Range Interpretation Comments MAGNESIUM (BEAKER) (test code = 2.2 mg/dL 1.6-2.6 627) Commercial Marketing Specialist ID - [id number] 05:37:00 Test Item Value Reference Range Interpretation Comments PHOSPHORUS (BEAKER) (test code = 3.0 mg/dL 2.3-4.7 604) Commercial Marketing Specialist ID - EDASICALCIUM, [id number] 04:59:00 Test Item Value Reference Range Interpretation Comments CALCIUM IONIZED (BEAKER) (test 1.08 mmol/L 1.12-1.27 L code = 698) PH, BLOOD (BEAKER) (test code = 7.47 1810) RAD, CHEST, 1 VIEW, NON [id number] 02:04:00Reason for exam:->Chest Tubes, s/p MVRShould this be performed at the bedside?->Yes [facility] 1960 Sex: MFINAL REPORT Chest one view. Clinical history: Chest Tubes, s/p MVR Comparison:Chest radiograph 06/11/2020. Technique: A single frontal view of the chest was obtained. Findings:There are mediastinal and pericardial drains. There has been interval removal of right IJ central venous catheter. The patient is status post median sternotomy and mitral valve replacement.The cardiomediastinal contours are stable. There is moderate to severe CHF. There are small bilateral pleural effusions. There is no pneumothorax. Signed: Nette Kern Verified Date/Time: 06/12/2020 02:04:44 [id number] 20:11:00 Test Item Value Reference Range Interpretation Comments POTASSIUM (BEAKER) (test code = 3.5 meq/L 3.5-5.1 379) Commercial Marketing Specialist ID - ROSA MPOCT-GLUCOSE [id number] 18:37:00 Test Item Value Reference Range Interpretation Comments POC-GLUCOSE METER 118 mg/dL 70-110 H : TESTED A T [facility] 6720 (BEAKER) (test code = [facility], 1538) [id number]: Commercial Marketing Specialist/Techni yamini ID = [id number] for ALVARO VANNAZ GIRON POCT-GLUCOSE [id number] 06:25:00 Test Item Value Reference Range Interpretation Comments POC-GLUCOSE METER 78 mg/dL 70-110 : TESTED A T [facility] 6720 (BEAKER) (test code = [facility], 1538) [address]: Commercial Marketing Specialist/Techni yamini ID = [id number] for Steffany Reuben collins CALCIUM, [id number] 05:03:00 Test Item Value Reference Range Interpretation Comments CALCIUM IONIZED (BEAKER) (test 1.09 mmol/L 1.12-1.27 L code = 698) PH, BLOOD (BEAKER) (test code = 7.47 1810) BASIC METABOLIC [id number] 04:01:00 Test Item Value Reference Range Interpretation Comments SODIUM (BEAKER) 141 meq/L 136-145 (test code = 381) POTASSIUM (BEAKER) 3.4 meq/L 3.5-5.1 L (test code = 379) CHLORIDE (BEAKER) 103 meq/L 98-107 (test code = 382) CO2 (BEAKER) (test 26 meq/L 22-29 code = 355) BLOOD UREA NITROGEN 62 mg/dL 7-21 H (BEAKER) (test code = 354) CREATININE (BEAKER) 1.61 mg/dL 0.57-1.25 H (test code = 358) GLUCOSE RANDOM 95 mg/dL 70-105 (BEAKER) (test code = 652) CALCIUM (BEAKER) 8.1 mg/dL 8.4-10.2 L (test code = 697) EGFR (BEAKER) (test 44 mL/min/1.73 ESTIMA JOSEFINA GFR IS code = 1092) sq m NOT ACCURATE CREATININE CLEARANCE IN PREDICTING GLOMERULAR FILTRATION RATE . ESTIMATED GFR I S NOT APPLICABLE FOR DIALYSIS PATIEN TS. Commercial Marketing Specialist ID - [id number] 04:01:00 Test Item Value Reference Range Interpretation Comments MAGNESIUM (BEAKER) (test code = 2.3 mg/dL 1.6-2.6 627) Commercial Marketing Specialist ID - [id number] 04:01:00 Test Item Value Reference Range Interpretation Comments PHOSPHORUS (BEAKER) (test code = 3.1 mg/dL 2.3-4.7 604) Commercial Marketing Specialist ID - EDASICBC W/PLT COUNT & AUTO [id number] 03:49:00 Test Item Value Reference Range Interpretation Comments WHITE BLOOD CELL COUNT (BEAKER) 8.2 K/ L 3.5-10.5 (test code = 775) RED BLOOD CELL COUNT (BEAKER) 2.70 M/ L 4.63-6.08 L (test code = 761) HEMOGLOBIN (BEAKER) (test code = 7.9 GM/DL 13.7-17.5 L 410) HEMATOCRIT (BEAKER) (test code = 24.7 % 40.1-51.0 L 411) MEAN CORPUSCULAR VOLUME (BEAKER) 91.5 fL 79.0-92.2 (test code = 753) MEAN CORPUSCULAR HEMOGLOBIN 29.3 pg 25.7-32.2 (BEAKER) (test code = 751) MEAN CORPUSCULAR HEMOGLOBIN CONC 32.0 GM/DL 32.3-36.5 L (BEAKER) (test code = 752) RED CELL DISTRIBUTION WIDTH 14.1 % 11.6-14.4 (BEAKER) (test code = 412) PLATELET COUNT (BEAKER) (test 112 K/CU MM 150-450 L code = 756) MEAN PLATELET VOLUME (BEAKER) 10.3 fL 9.4-12.4 (test code = 754) NUCLEATED RED BLOOD CELLS 0 /100 WBC 0-0 (BEAKER) (test code = 413) NEUTROPHILS RELATIVE PERCENT 78 % (BEAKER) (test code = 429) LYMPHOCYTES RELATIVE PERCENT 8 % (BEAKER) (test code = 430) MONOCYTES RELATIVE PERCENT 12 % (BEAKER) (test code = 431) EOSINOPHILS RELATIVE PERCENT 1 % (BEAKER) (test code = 432) BASOPHILS RELATIVE PERCENT 0 % (BEAKER) (test code = 437) NEUTROPHILS ABSOLUTE COUNT 6.40 K/ L 1.78-5.38 H (BEAKER) (test code = 670) LYMPHOCYTES ABSOLUTE COUNT 0.66 K/ L 1.32-3.57 L (BEAKER) (test code = 414) MONOCYTES ABSOLUTE COUNT (BEAKER) 0.97 K/ L 0.30-0.82 H (test code = 415) EOSINOPHILS ABSOLUTE COUNT 0.08 K/ L 0.04-0.54 (BEAKER) (test code = 416) BASOPHILS ABSOLUTE COUNT (BEAKER) 0.02 K/ L 0.01-0.08 (test code = 417) IMMATURE GRANULOCYTES-RELATIVE 1 % 0-1 PERCENT (BEAKER) (test code = 2801) RAD, CHEST, 1 VIEW, NON [id number] 01:36:00Reason for exam:->Chest Tubes, s/p MVRShould this be performed at the bedside?->Yes [facility] 1960 Sex: MFINAL REPORT CLINICAL INDICATION: Support lines. Comparison: 06/10/2020 The cardiomediastinal contours are stable. Bilateral parenchymal and pleural opacities are unchanged. Thereis no pneumothorax. Support lines are stable. Signed: Janis Alvarez MDReport Verified Date/Time: 06/11/2020 01:36:54 POCT- GLUCOSE [id number] 00:24:00 Test Item Value Reference Range Interpretation Comments POC-GLUCOSE METER 86 mg/dL 70-110 : TESTED A T [facility] 6720 [facility] (test code = [place] [place], 1538) [address]: Commercial Marketing Specialist/Techni yamini ID = [id number] for Reuben Anderson SARS-COV2/RT-PCR ([facility])2020-06-10 23:09:00 Test Item Value Reference Range Interpretation Comments SARS-COV2/RT-PCR (test Negative Not Detected, Negative, code = 7031726) See external report for linked test SARS-COV-2 PERFORMING LAB [facility] AMISHA (test code = 7275306) Negative result for this test determines that SARS-CoV-2 RNA was not present in the specimen above the Limit of Detection (LOD). However, Negative results do not preclude SARS-CoV-2 infection and should not be used as the sole basis for treatment or patient management decisions. Negative results must be combined with clinical observations, patient history, and epidemiological information. A false negative result may occur if a specimen is improperly collected, transported or handled. A false negative result should be considered if patient's recent exposures or clinical presentation indicate that COVID-19 (SARS-CoV-2) is likely and diagnostic tests for other causes of illness are negative. Re-testing should be considered in cases of suspected false negatives.The limit of detection for this assay is 800 copies/mL.This SARS CoV-2 test is a real-time RT-PCR test intended for the qualitative detection of nucleic acid from SARS-CoV-2 in a nasopharyngeal swab specimen collected from individuals suspected of COVID-19 by their healthcare provider.This test has not been Food and Drug Administration (FDA) cleared or approved. This is a modified version of an approved Emergency Use Authorization (EUA) and is in the process of review by the FDA. Once authorized by the FDA, the issued EUA will be effective until the declaration that circumstances exist justifying the authorization of the emergency use ofin vitro diagnostic tests for detection and/or diagnosis of COVID-19 is terminated under Section 564(b)(2) of the Act or the EUA is revoked under Section 564(g) of the Act.Fact Sheet for Healthcare Prov iders:https://www.[employer]/sites/default/files/product/documents/Fact_Sheet_HC _Oinjinuji_Dzav_LVVW-QpT-6.pdfFact Sheet for Healthcare Patients:https://www.[employer]/sites/default/files/product/docume nts/Cnmj_Yfcfg_Jfewwhqp_Sgfg_QJZA-CzY-7.pdfPerforming Laboratory:[facility] [facility] Hospitalcristy [place], [place] [address]GYDDOR SATURATION, [id number] 20:24:00 Test Item Value Reference Range Interpretation Comments O2 SATURATION (MEASURED) (BEAKER) 64.2 % (test code = 1455) BASIC METABOLIC [id number] 14:35:00 Test Item Value Reference Range Interpretation Comments SODIUM (BEAKER) 137 meq/L 136-145 (test code = 381) POTASSIUM (BEAKER) 3.4 meq/L 3.5-5.1 L (test code = 379) CHLORIDE (BEAKER) 102 meq/L 98-107 (test code = 382) CO2 (BEAKER) (test 25 meq/L 22-29 code = 355) BLOOD UREA NITROGEN 72 mg/dL 7-21 H (BEAKER) (test code = 354) CREATININE (BEAKER) 1.95 mg/dL 0.57-1.25 H (test code = 358) GLUCOSE RANDOM 164 mg/dL 70-105 H (BEAKER) (test code = 652) CALCIUM (BEAKER) 7.8 mg/dL 8.4-10.2 L (test code = 697) EGFR (BEAKER) (test 35 mL/min/1.73 ESTIMA JOSEFINA GFR IS code = 1092) sq m NOT ACCURATE CREATININE CLEARANCE IN PREDICTING GLOMERULAR FILTRATION RATE . ESTIMATED GFR I S NOT APPLICABLE FOR DIALYSIS PATIEN TS. Commercial Marketing Specialist ID - [id number] 14:07:00 Test Item Value Reference Range Interpretation Comments MAGNESIUM (BEAKER) (test code = 2.5 mg/dL 1.6-2.6 627) Commercial Marketing Specialist ID - [id number] 14:07:00 Test Item Value Reference Range Interpretation Comments PHOSPHORUS (BEAKER) (test code = 3.9 mg/dL 2.3-4.7 604) Commercial Marketing Specialist ID - ADMINHEMOGLOBIN AND [id number] 13:45:00 Test Item Value Reference Range Interpretation Comments HEMOGLOBIN (BEAKER) (test code = 8.0 GM/DL 13.7-17.5 L 410) HEMATOCRIT (BEAKER) (test code = 24.7 % 40.1-51.0 L 411) Commercial Marketing Specialist ID - [id number], [id number] 13:33:00 Test Item Value Reference Range Interpretation Comments CALCIUM IONIZED (BEAKER) (test 1.06 mmol/L 1.12-1.27 L code = 698) PH, BLOOD (BEAKER) (test code = 7.46 1810) POCT-GLUCOSE [id number] 12:05:00 Test Item Value Reference Range Interpretation Comments POC-GLUCOSE METER 101 mg/dL 70-110 : TESTED A T [facility] 6720 (BEAKER) (test code = [place] [place], 1538) [address]: Commercial Marketing Specialist/Techni yamini ID = [id number] for PRECIOUS YOON OXYGEN SATURATION, [id number] 11:58:00 Test Item Value Reference Range Interpretation Comments O2 SATURATION (MEASURED) (BEAKER) 68.4 % (test code = 1455) OXYGEN SATURATION, [id number] 07:39:00 Test Item Value Reference Range Interpretation Comments O2 SATURATION (MEASURED) (BEAKER) 62.9 % (test code = 1455) [id number] 06:27:00 Test Item Value Reference Range Interpretation Comments MAGNESIUM (BEAKER) (test code = 2.6 mg/dL 1.6-2.6 627) Commercial Marketing Specialist ID - [id number] 06:27:00 Test Item Value Reference Range Interpretation Comments PHOSPHORUS (BEAKER) (test code = 4.6 mg/dL 2.3-4.7 604) Commercial Marketing Specialist ID - DBVANCOMYCIN LEVEL, [id number] 04:00:00 Test Item Value Reference Range Interpretation Comments VANCOMYCIN RANDOM (BEAKER) (test 15.6 ug/mL code = 523) Reference Range: No NormalsOperator ID - EDASIBASIC METABOLIC [id number] 03:48:00 Test Item Value Reference Range Interpretation Comments SODIUM (BEAKER) 141 meq/L 136-145 (test code = 381) POTASSIUM (BEAKER) 3.7 meq/L 3.5-5.1 (test code = 379) CHLORIDE (BEAKER) 105 meq/L 98-107 (test code = 382) CO2 (BEAKER) (test 26 meq/L 22-29 code = 355) BLOOD UREA NITROGEN 76 mg/dL 7-21 H (BEAKER) (test code = 354) CREATININE (BEAKER) 2.31 mg/dL 0.57-1.25 H (test code = 358) GLUCOSE RANDOM 105 mg/dL 70-105 (BEAKER) (test code = 652) CALCIUM (BEAKER) 8.1 mg/dL 8.4-10.2 L (test code = 697) EGFR (BEAKER) (test 29 mL/min/1.73 ESTIMA JOSEFINA GFR IS code = 1092) sq m NOT ACCURATE CREATININE CLEARANCE IN PREDICTING GLOMERULAR FILTRATION RATE . ESTIMATED GFR I S NOT APPLICABLE FOR DIALYSIS PATIEN TS. Commercial Marketing Specialist ID - EDASICBC (HEMOGRAM ONLY)2020-06-10 03:28:00 Test Item Value Reference Range Interpretation Comments WHITE BLOOD CELL COUNT (BEAKER) 10.3 K/ L 3.5-10.5 (test code = 775) RED BLOOD CELL COUNT (BEAKER) 2.64 M/ L 4.63-6.08 L (test code = 761) HEMOGLOBIN (BEAKER) (test code = 7.8 GM/DL 13.7-17.5 L 410) HEMATOCRIT (BEAKER) (test code = 24.6 % 40.1-51.0 L 411) MEAN CORPUSCULAR VOLUME (BEAKER) 93.2 fL 79.0-92.2 H (test code = 753) MEAN CORPUSCULAR HEMOGLOBIN 29.5 pg 25.7-32.2 (BEAKER) (test code = 751) MEAN CORPUSCULAR HEMOGLOBIN CONC 31.7 GM/DL 32.3-36.5 L (BEAKER) (test code = 752) RED CELL DISTRIBUTION WIDTH 14.3 % 11.6-14.4 (BEAKER) (test code = 412) PLATELET COUNT (BEAKER) (test code 98 K/CU MM 150-450 L = 756) MEAN PLATELET VOLUME (BEAKER) 10.3 fL 9.4-12.4 (test code = 754) NUCLEATED RED BLOOD CELLS (BEAKER) 0 /100 WBC 0-0 (test code = 413) RAD, CHEST, 1 VIEW, NON [id number] 01:15:00Reason for exam:->Chest Tubes, s/p MVRShould this be performed at the bedside?->Yes [facility] 1960 Sex: MFINAL REPORT Chest one view. Clinical history: Chest Tubes, s/p MVR Comparison:Chest radiograph 06/09/2020. Technique: A single frontal view of the chest was obtained. Findings:There has been interval removal of right IJ [place]- Andrews catheter which has been replaced by a vascular sheath whose tip is in the SVC. There are mediastinal drains. There are median sternotomy wires.The card iomediastinal contours are stable. There are bibasilar airspace opacities, increased in the interval. There are small bilateral pleural effusions. There is no pneumothorax. Signed: Nette Kern MDReport Verified Date/Time: 06/10/2020 01:15:12 POCT-GLUCOSE [id number] 16:44:00 Test Item Value Reference Range Interpretation Comments POC-GLUCOSE METER 118 mg/dL 70-110 H : Notified RN/MD: (BEAKER) (test code = TESTED AT [facility] 6726 3180) [facility], [address]: Commercial Marketing Specialist/Techni yamini ID = [id number] for FABIANO LEA BASIC METABOLIC [id number] 16:31:00 Test Item Value Reference Range Interpretation Comments SODIUM (BEAKER) 142 meq/L 136-145 (test code = 381) POTASSIUM (BEAKER) 4.0 meq/L 3.5-5.1 (test code = 379) CHLORIDE (BEAKER) 108 meq/L 98-107 H (test code = 382) CO2 (BEAKER) (test 25 meq/L 22-29 code = 355) BLOOD UREA NITROGEN 69 mg/dL 7-21 H (BEAKER) (test code = 354) CREATININE (BEAKER) 2.62 mg/dL 0.57-1.25 H (test code = 358) GLUCOSE RANDOM 168 mg/dL 70-105 H (BEAKER) (test code = 652) CALCIUM (BEAKER) 8.1 mg/dL 8.4-10.2 L (test code = 697) EGFR (BEAKER) (test 25 mL/min/1.73 ESTIMA JOSEFINA GFR IS code = 1092) sq m NOT ACCURATE CREATININE CLEARANCE IN PREDICTING GLOMERULAR FILTRATION RATE . ESTIMATED GFR I S NOT APPLICABLE FOR DIALYSIS PATIEN TS. Commercial Marketing Specialist ID - [id number] 16:30:00 Test Item Value Reference Range Interpretation Comments MAGNESIUM (BEAKER) (test code = 2.6 mg/dL 1.6-2.6 627) Commercial Marketing Specialist ID - [id number] 16:30:00 Test Item Value Reference Range Interpretation Comments PHOSPHORUS (BEAKER) (test code = 4.3 mg/dL 2.3-4.7 604) Commercial Marketing Specialist ID - DBCBC W/PLT COUNT & AUTO [id number] 15:23:00 Test Item Value Reference Range Interpretation Comments WHITE BLOOD CELL COUNT (BEAKER) 14.4 K/ L 3.5-10.5 H (test code = 775) RED BLOOD CELL COUNT (BEAKER) 2.76 M/ L 4.63-6.08 L (test code = 761) HEMOGLOBIN (BEAKER) (test code = 8.3 GM/DL 13.7-17.5 L 410) HEMATOCRIT (BEAKER) (test code = 25.6 % 40.1-51.0 L 411) MEAN CORPUSCULAR VOLUME (BEAKER) 92.8 fL 79.0-92.2 H (test code = 753) MEAN CORPUSCULAR HEMOGLOBIN 30.1 pg 25.7-32.2 (BEAKER) (test code = 751) MEAN CORPUSCULAR HEMOGLOBIN CONC 32.4 GM/DL 32.3-36.5 (BEAKER) (test code = 752) RED CELL DISTRIBUTION WIDTH 14.4 % 11.6-14.4 (BEAKER) (test code = 412) PLATELET COUNT (BEAKER) (test code 96 K/CU MM 150-450 L = 756) MEAN PLATELET VOLUME (BEAKER) 10.9 fL 9.4-12.4 (test code = 754) NUCLEATED RED BLOOD CELLS (BEAKER) 0 /100 WBC 0-0 (test code = 413) NEUTROPHILS RELATIVE PERCENT 84 % (BEAKER) (test code = 429) LYMPHOCYTES RELATIVE PERCENT 5 % (BEAKER) (test code = 430) MONOCYTES RELATIVE PERCENT 10 % (BEAKER) (test code = 431) EOSINOPHILS RELATIVE PERCENT 0 % (BEAKER) (test code = 432) BASOPHILS RELATIVE PERCENT 0 % (BEAKER) (test code = 437) NEUTROPHILS ABSOLUTE COUNT 12.07 K/ L 1.78-5.38 H (BEAKER) (test code = 670) LYMPHOCYTES ABSOLUTE COUNT 0.77 K/ L 1.32-3.57 L (BEAKER) (test code = 414) MONOCYTES ABSOLUTE COUNT (BEAKER) 1.43 K/ L 0.30-0.82 H (test code = 415) EOSINOPHILS ABSOLUTE COUNT 0.01 K/ L 0.04-0.54 L (BEAKER) (test code = 416) BASOPHILS ABSOLUTE COUNT (BEAKER) 0.02 K/ L 0.01-0.08 (test code = 417) IMMATURE GRANULOCYTES-RELATIVE 1 % 0-1 PERCENT (BEAKER) (test code = 2801) CALCIUM, [id number] 15:16:00 Test Item Value Reference Range Interpretation Comments CALCIUM IONIZED (BEAKER) (test 1.13 mmol/L 1.12-1.27 code = 698) PH, BLOOD (BEAKER) (test code = 7.45 1810) POCT-GLUCOSE [id number] 11:59:00 Test Item Value Reference Range Interpretation Comments POC-GLUCOSE METER 122 mg/dL 70-110 H : Notified RN/MD: ([facility]) (test code = TESTED AT [facility] 6720 1538) [facility], [address]: Commercial Marketing Specialist/Techni yamini ID = [id number] for FABIANO LEA VANCOMYCIN LEVEL, [id number] 11:37:00 Test Item Value Reference Range Interpretation Comments VANCOMYCIN RANDOM (BEAKER) (test 15.3 ug/mL code = 523) Reference Range: No NormalsOperator ID - KESHA FPOCT-GLUCOSE [id number] 06:03:00 Test Item Value Reference Range Interpretation Comments POC-GLUCOSE METER 124 mg/dL 70-110 H : TESTED A T [facility] (test [facility] = [facility], 1538) [address]: Commercial Marketing Specialist/Techni yamini ID = [id number] for Yanet Villalta OXYGEN SATURATION, [id number] 05:59:00 Test Item Value Reference Range Interpretation Comments O2 SATURATION (MEASURED) (BEAKER) 82.1 % (test code = 1455) BLOOD GAS, [id number] 05:03:00 Test Item Value Reference Range Interpretation Comments PH ARTERIAL (BEAKER) (test code = 7.45 7.35-7.45 383) PCO2 ARTERIAL (BEAKER) (test code 37 mm Hg 35-45 = 384) PO2 ARTERIAL (BEAKER) (test code = 166 mm Hg 80-90 H 385) O2 SATURATION ARTERIAL (BEAKER) 99.2 % 96.0-97.0 H (test code = 386) HCO3 ARTERIAL (BEAKER) (test code 25 mmol/L 21-29 = 388) BASE EXCESS ARTERIAL (BEAKER) 0.9 mmol/L -2.0-3.0 (test code = 387) PATIENT TEMPERATURE (BEAKER) (test 37.0 code = 1818) FIO2 (BEAKER) (test code = 1819) 30.0 RAD, CHEST, 1 VIEW, NON [id number] 04:26:00while patient is intubated or has chest tubes.Reason for exam:->Status post CV SurgeryShould thisbe performed at the bedside?->Yes [facility] : 1960 Sex: MFINAL REPORT Chest one view. Clinical history: Status post CV Surgery Comparison: Chest radiograph 06/08/2020. Technique: A single frontal view of the chest was obtained. Findings:Support lines and tubes are in satisfactory positions. The patient is status post median sternotomy.The cardiomediastinal contours are stable. There are small bilateral pleural effusions. There are persistent bibasilar opacities. There is no pneumothorax. Signed: Nette Kern [facility] Verified Date/Time: 06/09/2020 04:26:06 BASIC METABOLIC [id number] 04:14:00 Test Item Value Reference Range Interpretation Comments SODIUM (BEAKER) 142 meq/L 136-145 (test code = 381) POTASSIUM (BEAKER) 4.8 meq/L 3.5-5.1 Specimen slightly (test code = 379) hemolyzed CHLORIDE (BEAKER) 110 meq/L 98-107 H (test code = 382) CO2 (BEAKER) (test 22 meq/L 22-29 code = 355) BLOOD UREA NITROGEN 64 mg/dL 7-21 H (BEAKER) (test code = 354) CREATININE (BEAKER) 2.86 mg/dL 0.57-1.25 H Specimen slightly (test code = 358) hemolyzed GLUCOSE RANDOM 145 mg/dL 70-105 H (BEAKER) (test code = 652) CALCIUM (BEAKER) 8.2 mg/dL 8.4-10.2 L (test code = 697) EGFR (BEAKER) (test 23 mL/min/1.73 ESTIMA JOSEFINA GFR IS code = 1092) sq m NOT ACCURATE CREATININE CLEARANCE IN PREDICTING GLOMERULAR FILTRATION RATE . ESTIMATED GFR I S NOT APPLICABLE FOR DIALYSIS PATIEN TS. Commercial Marketing Specialist ID - ROSA MURIC [id number] 03:56:00 Test Item Value Reference Range Interpretation Comments URIC ACID (BEAKER) 11.5 mg/dL 2.6-7.2 H Specimen slightly (test code = 773) hemolyzed Commercial Marketing Specialist ID - ROSA [id number] 03:55:00 Test Item Value Reference Range Interpretation Comments MAGNESIUM (BEAKER) (test code = 2.7 mg/dL 1.6-2.6 H 627) Commercial Marketing Specialist ID - ROSA MCBC (HEMOGRAM ONLY)2020-06-09 03:54:00 Test Item Value Reference Range Interpretation Comments WHITE BLOOD CELL COUNT (BEAKER) 17.2 K/ L 3.5-10.5 H (test code = 775) RED BLOOD CELL COUNT (BEAKER) 2.49 M/ L 4.63-6.08 L (test code = 761) HEMOGLOBIN (BEAKER) (test code = 7.5 GM/DL 13.7-17.5 L 410) HEMATOCRIT (BEAKER) (test code = 23.6 % 40.1-51.0 L 411) MEAN CORPUSCULAR VOLUME (BEAKER) 94.8 fL 79.0-92.2 H (test code = 753) MEAN CORPUSCULAR HEMOGLOBIN 30.1 pg 25.7-32.2 (BEAKER) (test code = 751) MEAN CORPUSCULAR HEMOGLOBIN CONC 31.8 GM/DL 32.3-36.5 L (BEAKER) (test code = 752) RED CELL DISTRIBUTION WIDTH 14.4 % 11.6-14.4 (BEAKER) (test code = 412) PLATELET COUNT (BEAKER) (test code 92 K/CU MM 150-450 L = 756) MEAN PLATELET VOLUME (BEAKER) 10.9 fL 9.4-12.4 (test code = 754) NUCLEATED RED BLOOD CELLS (BEAKER) 0 /100 WBC 0-0 (test code = 413) CALCIUM, [id number] 03:42:00 Test Item Value Reference Range Interpretation Comments CALCIUM IONIZED (BEAKER) (test 1.12 mmol/L 1.12-1.27 code = 698) PH, BLOOD (BEAKER) (test code = 7.43 1810) OXYGEN SATURATION, [id number] 23:21:00 Test Item Value Reference Range Interpretation Comments O2 SATURATION (MEASURED) (BEAKER) 84.1 % (test code = 1455) POCT-GLUCOSE [id number] 23:05:00 Test Item Value Reference Range Interpretation Comments POC-GLUCOSE METER 141 mg/dL 70-110 H : TESTED A T [facility] 6720 ([employer]) (test code = [facility] [employer] [facility], 153) [id number]: Commercial Marketing Specialist/Techni yamini ID = [id number] for Ne Yanet lockett [id number] 19:31:00 Test Item Value Reference Range Interpretation Comments PROCALCITONIN (BEAKER) (test code 29.03 ng/mL <0.05 = 3036) SEPSIS RISK (ng/mL)Low: 0.05-0.50Intermediate: 0.51-2.00High: >=2.01POCT- GLUCOSE [id number] 19:03:00 Test Item Value Reference Range Interpretation Comments POC-GLUCOSE METER 150 mg/dL 70-110 H : TESTED A T [facility] 6720 ([employer]) (test code = [employer], 153) [id number]: Commercial Marketing Specialist/Techni yamini ID = [id number] for [place] LAURADO, JUNDELL [id number] 14:52:00 Test Item Value Reference Range Interpretation Comments MAGNESIUM (BEAKER) (test code = 2.7 mg/dL 1.6-2.6 H 627) Commercial Marketing Specialist ID - EDASIBASIC METABOLIC [id number] 14:52:00 Test Item Value Reference Range Interpretation Comments SODIUM (BEAKER) 142 meq/L 136-145 (test code = 381) POTASSIUM (BEAKER) 5.1 meq/L 3.5-5.1 (test code = 379) CHLORIDE (BEAKER) 110 meq/L 98-107 H (test code = 382) CO2 (BEAKER) (test 23 meq/L 22-29 code = 355) BLOOD UREA NITROGEN 52 mg/dL 7-21 H (BEAKER) (test code = 354) CREATININE (BEAKER) 2.59 mg/dL 0.57-1.25 H (test code = 358) GLUCOSE RANDOM 167 mg/dL 70-105 H (BEAKER) (test code = 652) CALCIUM (BEAKER) 8.2 mg/dL 8.4-10.2 L (test code = 697) EGFR (BEAKER) (test 25 mL/min/1.73 ESTIMA JOSEFINA GFR IS code = 1092) sq m NOT ACCURATE CREATININE CLEARANCE IN PREDICTING GLOMERULAR FILTRATION RATE . ESTIMATED GFR I S NOT APPLICABLE FOR DIALYSIS PATIEN TS. Commercial Marketing Specialist ID - EDASILACTIC ACID, [id number] 14:48:00 Test Item Value Reference Range Interpretation Comments LACTATE BLOOD ARTERIAL (2) 1.6 mmol/L 0.5-2.2 (BEAKER) (test code = 2874) Commercial Marketing Specialist ID - BSOXYGEN SATURATION, [id number] 14:46:00 Test Item Value Reference Range Interpretation Comments O2 SATURATION (MEASURED) (BEAKER) 80.0 % (test code = 1455) CBC (HEMOGRAM ONLY)2020-06-08 14:37:00 Test Item Value Reference Range Interpretation Comments WHITE BLOOD CELL COUNT (BEAKER) 18.9 K/ L 3.5-10.5 H (test code = 775) RED BLOOD CELL COUNT (BEAKER) 2.37 M/ L 4.63-6.08 L (test code = 761) HEMOGLOBIN (BEAKER) (test code = 7.3 GM/DL 13.7-17.5 L 410) HEMATOCRIT (BEAKER) (test code = 22.8 % 40.1-51.0 L 411) MEAN CORPUSCULAR VOLUME (BEAKER) 96.2 fL 79.0-92.2 H (test code = 753) MEAN CORPUSCULAR HEMOGLOBIN 30.8 pg 25.7-32.2 (BEAKER) (test code = 751) MEAN CORPUSCULAR HEMOGLOBIN CONC 32.0 GM/DL 32.3-36.5 L (BEAKER) (test code = 752) RED CELL DISTRIBUTION WIDTH 13.9 % 11.6-14.4 (BEAKER) (test code = 412) PLATELET COUNT (BEAKER) (test code 93 K/CU MM 150-450 L = 756) MEAN PLATELET VOLUME (BEAKER) 10.9 fL 9.4-12.4 (test code = 754) NUCLEATED RED BLOOD CELLS (BEAKER) 0 /100 WBC 0-0 (test code = 413) BLOOD GAS, [id number] 14:36:00 Test Item Value Reference Range Interpretation Comments PH ARTERIAL (BEAKER) (test code = 7.42 7.35-7.45 383) PCO2 ARTERIAL (BEAKER) (test code 39 mm Hg 35-45 = 384) PO2 ARTERIAL (BEAKER) (test code = 143 mm Hg 80-90 H 385) O2 SATURATION ARTERIAL (BEAKER) 98.9 % 96.0-97.0 H (test code = 386) HCO3 ARTERIAL (BEAKER) (test code 25 mmol/L 21-29 = 388) BASE EXCESS ARTERIAL (BEAKER) 0.4 mmol/L -2.0-3.0 (test code = 387) PATIENT TEMPERATURE (BEAKER) (test 37.2 code = 1818) FIO2 (BEAKER) (test code = 1819) 36.1 POCT-GLUCOSE [id number] 12:58:00 Test Item Value Reference Range Interpretation Comments POC-GLUCOSE METER 150 mg/dL 70-110 H : TESTED A T [facility] 6720 (BEAKER) (test code = [place], 1538) [id number]: Commercial Marketing Specialist/Techni yamini ID = [id number] for CA MONTSE CALVINDELL VANCOMYCIN LEVEL, [id number] 12:44:00 Test Item Value Reference Range Interpretation Comments VANCOMYCIN TROUGH (BEAKER) (test 24.1 ug/mL 10.0-20.0 H code = 522) Commercial Marketing Specialist ID - ROSPATIENCEGBASIC METABOLIC [id number] 04:31:00 Test Item Value Reference Range Interpretation Comments SODIUM (BEAKER) 142 meq/L 136-145 (test code = 381) POTASSIUM (BEAKER) 5.0 meq/L 3.5-5.1 (test code = 379) CHLORIDE (BEAKER) 111 meq/L 98-107 H (test code = 382) CO2 (BEAKER) (test 21 meq/L 22-29 L code = 355) BLOOD UREA NITROGEN 43 mg/dL 7-21 H (BEAKER) (test code = 354) CREATININE (BEAKER) 2.38 mg/dL 0.57-1.25 H (test code = 358) GLUCOSE RANDOM 195 mg/dL 70-105 H (BEAKER) (test code = 652) CALCIUM (BEAKER) 7.7 mg/dL 8.4-10.2 L (test code = 697) EGFR (BEAKER) (test 28 mL/min/1.73 ESTIMA JOSEFINA GFR IS code = 1092) sq m NOT ACCURATE CREATININE CLEARANCE IN PREDICTING GLOMERULAR FILTRATION RATE . ESTIMATED GFR I S NOT APPLICABLE FOR DIALYSIS PATIEN TS. Commercial Marketing Specialist ID - [id number] 04:29:00 Test Item Value Reference Range Interpretation Comments MAGNESIUM (BEAKER) (test code = 2.6 mg/dL 1.6-2.6 627) Commercial Marketing Specialist ID - [id number] 04:29:00 Test Item Value Reference Range Interpretation Comments PHOSPHORUS (BEAKER) (test code = 4.9 mg/dL 2.3-4.7 H 604) Commercial Marketing Specialist ID - EDASILACTIC ACID, [id number] 04:19:00 Test Item Value Reference Range Interpretation Comments LACTATE BLOOD ARTERIAL (2) 2.8 mmol/L 0.5-2.2 H (BEAKER) (test code = 2874) Commercial Marketing Specialist ID - EDASICBC (HEMOGRAM ONLY)2020-06-08 04:16:00 Test Item Value Reference Range Interpretation Comments WHITE BLOOD CELL COUNT (BEAKER) 18.1 K/ L 3.5-10.5 H (test code = 775) RED BLOOD CELL COUNT (BEAKER) 2.47 M/ L 4.63-6.08 L (test code = 761) HEMOGLOBIN (BEAKER) (test code = 7.6 GM/DL 13.7-17.5 L 410) HEMATOCRIT (BEAKER) (test code = 23.8 % 40.1-51.0 L 411) MEAN CORPUSCULAR VOLUME (BEAKER) 96.4 fL 79.0-92.2 H (test code = 753) MEAN CORPUSCULAR HEMOGLOBIN 30.8 pg 25.7-32.2 (BEAKER) (test code = 751) MEAN CORPUSCULAR HEMOGLOBIN CONC 31.9 GM/DL 32.3-36.5 L (BEAKER) (test code = 752) RED CELL DISTRIBUTION WIDTH 13.9 % 11.6-14.4 (BEAKER) (test code = 412) PLATELET COUNT (BEAKER) (test code 92 K/CU MM 150-450 L = 756) MEAN PLATELET VOLUME (BEAKER) 10.8 fL 9.4-12.4 (test code = 754) NUCLEATED RED BLOOD CELLS (BEAKER) 0 /100 WBC 0-0 (test code = 413) BLOOD GAS, [id number] 04:11:00 Test Item Value Reference Range Interpretation Comments PH ARTERIAL (BEAKER) (test code = 7.40 7.35-7.45 383) PCO2 ARTERIAL (BEAKER) (test code 39 mm Hg 35-45 = 384) PO2 ARTERIAL (BEAKER) (test code 130 mm Hg 80-90 H = 385) O2 SATURATION ARTERIAL (BEAKER) 98.6 % 96.0-97.0 H (test code = 386) HCO3 ARTERIAL (BEAKER) (test code 24 mmol/L 21-29 = 388) BASE EXCESS ARTERIAL (BEAKER) -1.1 mmol/L -2.0-3.0 (test code = 387) PATIENT TEMPERATURE (BEAKER) 37.0 (test code = 1818) CALCIUM, [id number] 04:11:00 Test Item Value Reference Range Interpretation Comments CALCIUM IONIZED (BEAKER) (test 1.08 mmol/L 1.12-1.27 L code = 698) PH, BLOOD (BEAKER) (test code = 7.40 1810) OXYGEN SATURATION, [id number] 04:07:00 Test Item Value Reference Range Interpretation Comments O2 SATURATION (MEASURED) (BEAKER) 62.8 % (test code = 1455) RAD, CHEST, 1 VIEW, NON [id number] 02:17:00while patient is intubated or has chest tubes.Reason for exam:->Status post CV SurgeryShould thisbe performed at the bedside?->Yes [facility] 1960 Sex: MFINAL REPORT RAD, CHEST, 1 VIEW, NON DEPT INDICATION: Status post CV Surgery COMPARISON: Prior day's exam FINDINGS: Portable frontal view of the chest. IMPRESSION: Support Lines: ET tube an enteric tube have been removed. Otherwise stable support apparatus.Lungs and pleura: Increased basilar pulmonary opacities suggesting worsening atelectasis and/or left pleural effusion. Right cardiophrenic angle nodular opacities newly appreciated and may represent atelectasis but aspiration is not excluded. No pneumothorax.Heart and mediastinum: Stable contours. Additional findings: None. Signed: Fam Craft MDReport Verified Date/Time: 06/08/2020 02:17:37 [id number] 00:19:00 Test Item Value Reference Range Interpretation Comments MAGNESIUM (BEAKER) (test code = 2.8 mg/dL 1.6-2.6 H 627) Commercial Marketing Specialist ID - PIAYA LBASIC METABOLIC [id number] 00:19:00 Test Item Value Reference Range Interpretation Comments SODIUM (BEAKER) 141 meq/L 136-145 (test code = 381) POTASSIUM (BEAKER) 5.1 meq/L 3.5-5.1 (test code = 379) CHLORIDE (BEAKER) 111 meq/L 98-107 H (test code = 382) CO2 (BEAKER) (test 20 meq/L 22-29 L code = 355) BLOOD UREA NITROGEN 41 mg/dL 7-21 H (BEAKER) (test code = 354) CREATININE (BEAKER) 2.36 mg/dL 0.57-1.25 H (test code = 358) GLUCOSE RANDOM 213 mg/dL 70-105 H (BEAKER) (test code = 652) CALCIUM (BEAKER) 7.7 mg/dL 8.4-10.2 L (test code = 697) EGFR (BEAKER) (test 28 mL/min/1.73 ESTIMA JOSEFINA GFR IS code = 1092) sq m NOT ACCURATE CREATININE CLEARANCE IN PREDICTING GLOMERULAR FILTRATION RATE . ESTIMATED GFR I S NOT APPLICABLE FOR DIALYSIS PATIEN TS. Commercial Marketing Specialist ID - PIAYA LLACTIC ACID, [id number] 00:13:00 Test Item Value Reference Range Interpretation Comments LACTATE BLOOD ARTERIAL (2) 3.1 mmol/L 0.5-2.2 H (BEAKER) (test code = 2874) Commercial Marketing Specialist ID - PIAYA LCBC (HEMOGRAM ONLY)2020-06-08 00:07:00 Test Item Value Reference Range Interpretation Comments WHITE BLOOD CELL COUNT 16.5 K/ L 3.5-10.5 H (BEAKER) (test code = 775) RED BLOOD CELL COUNT 2.52 M/ L 4.63-6.08 L (BEAKER) (test code = 761) HEMOGLOBIN (BEAKER) 7.8 GM/DL 13.7-17.5 L (test code = 410) HEMATOCRIT (BEAKER) 24.8 % 40.1-51.0 L (test code = 411) MEAN CORPUSCULAR 98.4 fL 79.0-92.2 H Discordant MCV result VOLUME (BEAKER) (test compar ed to previous code = 753) result; clinica l correlation req uired. MEAN CORPUSCULAR 31.0 pg 25.7-32.2 HEMOGLOBIN (BEAKER) (test code = 751) MEAN CORPUSCULAR 31.5 GM/DL 32.3-36.5 L HEMOGLOBIN CONC (BEAKER) (test code = 752) RED CELL DISTRIBUTION 13.9 % 11.6-14.4 WIDTH (BEAKER) (test code = 412) PLATELET COUNT 93 K/CU MM 150-450 L (BEAKER) (test code = 756) MEAN PLATELET VOLUME 10.9 fL 9.4-12.4 (BEAKER) (test code = 754) NUCLEATED RED BLOOD 0 /100 WBC 0-0 CELLS (BEAKER) (test code = 413) BLOOD GAS, [id number] 23:59:00 Test Item Value Reference Range Interpretation Comments PH ARTERIAL (BEAKER) (test code = 7.33 7.35-7.45 L 383) PCO2 ARTERIAL (BEAKER) (test code 46 mm Hg 35-45 H = 384) PO2 ARTERIAL (BEAKER) (test code 127 mm Hg 80-90 H = 385) O2 SATURATION ARTERIAL (BEAKER) 98.3 % 96.0-97.0 H (test code = 386) HCO3 ARTERIAL (BEAKER) (test code 24 mmol/L 21-29 = 388) BASE EXCESS ARTERIAL (BEAKER) -2.0 mmol/L -2.0-3.0 (test code = 387) PATIENT TEMPERATURE (BEAKER) 37.5 (test code = 1818) FIO2 (BEAKER) (test code = 1819) 21.0 CALCIUM, [id number] 23:59:00 Test Item Value Reference Range Interpretation Comments CALCIUM IONIZED (BEAKER) (test 1.11 mmol/L 1.12-1.27 L code = 698) PH, BLOOD (BEAKER) (test code = 7.34 1810) OXYGEN SATURATION, [id number] 23:57:00 Test Item Value Reference Range Interpretation Comments O2 SATURATION (MEASURED) (BEAKER) 62.5 % (test code = 1455) POCT-GLUCOSE [id number] 19:10:00 Test Item Value Reference Range Interpretation Comments POC-GLUCOSE METER 208 mg/dL 70-110 H : TESTED A T [facility] 6720 (BEAKER) (test code = [place], 1538) [id number]: Commercial Marketing Specialist/Techni yamini ID = [id number] for Ca mpos (V), Luzinda BLOOD GAS, [id number] 17:34:00 Test Item Value Reference Range Interpretation Comments PH ARTERIAL (BEAKER) (test code = 7.48 7.35-7.45 H 383) PCO2 ARTERIAL (BEAKER) (test code 32 mm Hg 35-45 L = 384) PO2 ARTERIAL (BEAKER) (test code 162 mm Hg 80-90 H = 385) O2 SATURATION ARTERIAL (BEAKER) 99.1 % 96.0-97.0 H (test code = 386) HCO3 ARTERIAL (BEAKER) (test code 23 mmol/L 21-29 = 388) BASE EXCESS ARTERIAL (BEAKER) -0.3 mmol/L -2.0-3.0 (test code = 387) PATIENT TEMPERATURE (BEAKER) 38.7 (test code = 1818) FIO2 (BEAKER) (test code = 1819) 40.0 OXYGEN SATURATION, [id number] 17:33:00 Test Item Value Reference Range Interpretation Comments O2 SATURATION (MEASURED) (BEAKER) 55.6 % (test code = 1455) CBC (HEMOGRAM ONLY)2020-06-07 17:33:00 Test Item Value Reference Range Interpretation Comments WHITE BLOOD CELL COUNT (BEAKER) 14.4 K/ L 3.5-10.5 H (test code = 775) RED BLOOD CELL COUNT (BEAKER) 2.17 M/ L 4.63-6.08 L (test code = 761) HEMOGLOBIN (BEAKER) (test code = 6.7 GM/DL 13.7-17.5 L 410) HEMATOCRIT (BEAKER) (test code = 20.3 % 40.1-51.0 L 411) MEAN CORPUSCULAR VOLUME (BEAKER) 93.5 fL 79.0-92.2 H (test code = 753) MEAN CORPUSCULAR HEMOGLOBIN 30.9 pg 25.7-32.2 (BEAKER) (test code = 751) MEAN CORPUSCULAR HEMOGLOBIN CONC 33.0 GM/DL 32.3-36.5 (BEAKER) (test code = 752) RED CELL DISTRIBUTION WIDTH 13.9 % 11.6-14.4 (BEAKER) (test code = 412) PLATELET COUNT (BEAKER) (test code 97 K/CU MM 150-450 L = 756) MEAN PLATELET VOLUME (BEAKER) 11.1 fL 9.4-12.4 (test code = 754) NUCLEATED RED BLOOD CELLS (BEAKER) 0 /100 WBC 0-0 (test code = 413) RAD, CHEST, 1 VIEW, NON [id number] 12:58:00Reason for exam:->post stertotomu revisionShould this be performed at the bedside?->Yes [facility] 1960 Sex: MFINAL REPORT RAD, CHEST, 1 VIEW, NON DEPT INDICATION: post stertotomu revision COMPARISON: 10 hours prior FINDINGS: Portable frontal view of the chest. IMPRESSION: Support Lines: Intra-aortic balloon pump marker is approximately 2 cm from the aortic arch superior border, advanced compared to the prior examination. Remaining support hardware is essentially stable. Lungs and pleura: No new consolidation. Small left effusion. No pneumothorax.Heart and mediastinum: Stable contours. Stable surgical changes.Additional findings: None. Signed: JR Roe Robert MDReport VerifiedDate/Time: 06/07/2020 12:58:51 Reading Location: [facility] Radiology Reading Room LACTIC ACID, ARTERIAL 2020-06-07 12:54:00 Test Item Value Reference Range Interpretation Comments LACTATE BLOOD ARTERIAL (2) 2.6 mmol/L 0.5-2.2 H ([employer]) (test code = 2874) Commercial Marketing Specialist ID - KESHA FPOCT-GLUCOSE [id number] 12:44:00 Test Item Value Reference Range Interpretation Comments POC-GLUCOSE METER 172 mg/dL 70-110 H : TESTED A T [facility] 0720 ([employer]) (test code = [place], 1538) [address]: Commercial Marketing Specialist/Techni yamini ID = [id number] for Ca mpos (V), Luzinda LACTIC ACID, [id number] 09:07:00 Test Item Value Reference Range Interpretation Comments LACTATE BLOOD ARTERIAL (2) 1.7 mmol/L 0.5-2.2 (BEAKER) (test code = 2874) Commercial Marketing Specialist ID - KESHA FVANCOMYCIN LEVEL, [id number] 09:06:00 Test Item Value Reference Range Interpretation Comments VANCOMYCIN TROUGH (BEAKER) (test 17.5 ug/mL 10.0-20.0 code = 522) Commercial Marketing Specialist ID - KESHA FPOCT-GLUCOSE [id number] 06:17:00 Test Item Value Reference Range Interpretation Comments POC-GLUCOSE METER 137 mg/dL 70-110 H : [facility] (test code = ROSMERY Jimenez [facility], 1538) [address]: Commercial Marketing Specialist/Techni yamini ID = [id number] for ODILONAD, HALLIE BASIC METABOLIC [id number] 04:38:00 Test Item Value Reference Range Interpretation Comments SODIUM (BEAKER) 142 meq/L 136-145 (test code = 381) POTASSIUM (BEAKER) 4.5 meq/L 3.5-5.1 (test code = 379) CHLORIDE (BEAKER) 112 meq/L 98-107 H (test code = 382) CO2 (BEAKER) (test 23 meq/L 22-29 code = 355) BLOOD UREA NITROGEN 23 mg/dL 7-21 H (BEAKER) (test code = 354) CREATININE (BEAKER) 1.43 mg/dL 0.57-1.25 H (test code = 358) GLUCOSE RANDOM 92 mg/dL 70-105 (BEAKER) (test code = 652) CALCIUM (BEAKER) 7.3 mg/dL 8.4-10.2 L (test code = 697) EGFR (BEAKER) (test 50 mL/min/1.73 ESTIMA JOSEFINA GFR IS code = 1092) sq m NOT ACCURATE CREATININE CLEARANCE IN PREDICTING GLOMERULAR FILTRATION RATE . ESTIMATED GFR I S NOT APPLICABLE FOR DIALYSIS PATIEN TS. Commercial Marketing Specialist ID - GE LRAD, CHEST, 1 VIEW, NON [id number] 04:22:00while patient is intubated or has chest tubes.Reason for exam:->Status post CV SurgeryShould thisbe performed at the bedside?->Yes [facility] 1960 Sex: MFINAL REPORT RAD, CHEST, 1 VIEW, NON DEPT INDICATION: Status post CV Surgery COMPARISON: 10 hours prior FINDINGS: Portable frontal view of the chest. IMPRESSION: Support Lines: No significant change. Lungs and pleura: Stable retrocardiac opacity, likely atelectasis. No pneumothorax.Heart and mediastinum: Stable contours. Additional findings: None. Signed: Fam Craft MDReport Verified Date/Time: 06/07/2020 04:22:30 [id number] 04:18:00 Test Item Value Reference Range Interpretation Comments MAGNESIUM (BEAKER) (test code = 2.8 mg/dL 1.6-2.6 H 627) Commercial Marketing Specialist ID - PIAYA [id number] 04:18:00 Test Item Value Reference Range Interpretation Comments PHOSPHORUS (BEAKER) (test code = 2.8 mg/dL 2.3-4.7 604) Commercial Marketing Specialist ID - PIAYA [id number] 03:43:00 Test Item Value Reference Range Interpretation Comments PROTIME (BEAKER) (test code = 19.0 seconds 11.9-14.2 H 759) INR (BEAKER) (test code = 370) 1.64 <=5.90 PARTIAL THROMBOPLASTIN TIME 38.5 seconds 22.5-36.0 H (BEAKER) (test code = 760) Effective 12/10/2018: PT Reference Range ChangeNew: 11.9-14.2 Previous: 11.7- 14.7RECOMMENDED COUMADIN/WARFARIN INR THERAPY RANGESSTANDARD DOSE: 2.0-3.0 Includes: PROPHYLAXIS for venous thrombosis, systemic embolization; TREATMENT for venous thrombosis and/or pulmonary embolus.HIGH RISK: Target INR is 2.5-3.5 for patients wiht mechanical heart valves.LACTIC ACID, [id number] 03:30:00 Test Item Value Reference Range Interpretation Comments LACTATE BLOOD ARTERIAL (2) 2.3 mmol/L 0.5-2.2 H (BEAKER) (test code = 2874) Commercial Marketing Specialist ID - EDASICBC (HEMOGRAM ONLY)2020-06-07 03:25:00 Test Item Value Reference Range Interpretation Comments WHITE BLOOD CELL COUNT (BEAKER) 15.5 K/ L 3.5-10.5 H (test code = 775) RED BLOOD CELL COUNT (BEAKER) 2.68 M/ L 4.63-6.08 L (test code = 761) HEMOGLOBIN (BEAKER) (test code = 8.1 GM/DL 13.7-17.5 L 410) HEMATOCRIT (BEAKER) (test code = 24.8 % 40.1-51.0 L 411) MEAN CORPUSCULAR VOLUME (BEAKER) 92.5 fL 79.0-92.2 H (test code = 753) MEAN CORPUSCULAR HEMOGLOBIN 30.2 pg 25.7-32.2 (BEAKER) (test code = 751) MEAN CORPUSCULAR HEMOGLOBIN CONC 32.7 GM/DL 32.3-36.5 (BEAKER) (test code = 752) RED CELL DISTRIBUTION WIDTH 13.5 % 11.6-14.4 (BEAKER) (test code = 412) PLATELET COUNT (BEAKER) (test 117 K/CU MM 150-450 L code = 756) MEAN PLATELET VOLUME (BEAKER) 10.9 fL 9.4-12.4 (test code = 754) NUCLEATED RED BLOOD CELLS 0 /100 WBC 0-0 (BEAKER) (test code = 413) BLOOD GAS, [id number] 03:20:00 Test Item Value Reference Range Interpretation Comments PH VENOUS (BEAKER) (test code = 7.41 7.32-7.42 701) PCO2 VENOUS (BEAKER) (test code = 44 mm Hg 41-51 755) PO2 VENOUS (BEAKER) (test code = 36 mm Hg 25-40 702) O2 SATURATION VENOUS (BEAKER) 64.5 % 40.0-70.0 (test code = 703) HCO3 VENOUS (BEAKER) (test code = 27 mmol/L 21-29 705) BASE EXCESS VENOUS (BEAKER) (test 2.5 mmol/L -2.0-3.0 code = 704) PATIENT TEMPERATURE (BEAKER) (test 38.6 code = 1818) FIO2 (BEAKER) (test code = 1819) 40.0 OXYGEN SATURATION, [id number] 03:20:00 Test Item Value Reference Range Interpretation Comments O2 SATURATION (MEASURED) (BEAKER) 57.9 % (test code = 1455) GLUCOSE-STAT [id number] 03:16:00 Test Item Value Reference Range Interpretation Comments GLUCOSE RANDOM (BEAKER) (test code = 85 mg/dL 70-110 652) SODIUM NA-STAT [id number] 03:16:00 Test Item Value Reference Range Interpretation Comments SODIUM (BEAKER) (test code = 381) 138 meq/L 136-145 POTASSIUM-STAT [id number] 03:16:00 Test Item Value Reference Range Interpretation Comments POTASSIUM (BEAKER) (test code = 4.3 meq/L 3.6-5.5 379) BLOOD GAS, [id number] 03:16:00 Test Item Value Reference Range Interpretation Comments PH ARTERIAL (BEAKER) (test code = 7.48 7.35-7.45 H 383) PCO2 ARTERIAL (BEAKER) (test code 34 mm Hg 35-45 L = 384) PO2 ARTERIAL (BEAKER) (test code = 111 mm Hg 80-90 H 385) O2 SATURATION ARTERIAL (BEAKER) 98.1 % 96.0-97.0 H (test code = 386) HCO3 ARTERIAL (BEAKER) (test code 25 mmol/L 21-29 = 388) BASE EXCESS ARTERIAL (BEAKER) 1.8 mmol/L -2.0-3.0 (test code = 387) PATIENT TEMPERATURE (BEAKER) (test 38.6 code = 1818) FIO2 (BEAKER) (test code = 1819) 40.0 HGB/HCT (H&H) - STAT [id number] 03:16:00 Test Item Value Reference Range Interpretation Comments HEMOGLOBIN (BEAKER) (test code = 8.8 GM/DL 13.0-16.8 L 410) HEMATOCRIT (BEAKER) (test code = 26.0 % 40.0-50.0 L 411) CALCIUM, [id number] 03:16:00 Test Item Value Reference Range Interpretation Comments CALCIUM IONIZED (BEAKER) (test 1.05 mmol/L 1.12-1.27 L code = 698) PH, BLOOD (BEAKER) (test code = 7.50 1810) POCT-GLUCOSE [id number] 02:56:00 Test Item Value Reference Range Interpretation Comments POC-GLUCOSE METER 94 mg/dL 70-110 : TESTED A T [facility] 6720 (BEAKER) (test code = [facility], 1538) [address]: Commercial Marketing Specialist/Techni yamini ID = [id number] for CANELABHARAT TEVIN POCT-GLUCOSE [id number] 01:53:00 Test Item Value Reference Range Interpretation Comments POC-GLUCOSE METER 121 mg/dL 70-110 H : TESTED A T [facility] 6720 ([facility]) (test code = [facility], 1538) [address]: Commercial Marketing Specialist/Techni yamini ID = [id number] for TA N, BHARAT TEVIN LACTIC ACID, [id number] 00:36:00 Test Item Value Reference Range Interpretation Comments LACTATE BLOOD ARTERIAL (2) 4.1 mmol/L 0.5-2.2 HH (BEAKER) (test code = 2874) Commercial Marketing Specialist ID - PIAYA LPOCT-GLUCOSE [id number] 00:05:00 Test Item Value Reference Range Interpretation Comments POC-GLUCOSE METER 200 mg/dL 70-110 H : TESTED A T [facility] 6720 (BEAKER) (test code = [facility], 1538) [address]: Commercial Marketing Specialist/Techni yamini ID = [id number] for TA N, BHARAT TEVIN POCT-GLUCOSE [id number] 00:05:00 Test Item Value Reference Range Interpretation Comments POC-GLUCOSE METER 241 mg/dL 70-110 H : TESTED A T [facility] 6720 (BEAKER) (test code = [facility], 1538) [address]: Commercial Marketing Specialist/Techni yamini ID = [id number] for TA N, BHARAT TEVIN BLOOD GAS, [id number] 22:08:00 Test Item Value Reference Range Interpretation Comments PH ARTERIAL (BEAKER) (test code = 7.42 7.35-7.45 383) PCO2 ARTERIAL (BEAKER) (test code 35 mm Hg 35-45 = 384) PO2 ARTERIAL (BEAKER) (test code 168 mm Hg 80-90 H = 385) O2 SATURATION ARTERIAL (BEAKER) 99.1 % 96.0-97.0 H (test code = 386) HCO3 ARTERIAL (BEAKER) (test code 22 mmol/L 21-29 = 388) BASE EXCESS ARTERIAL (BEAKER) -1.8 mmol/L -2.0-3.0 (test code = 387) PATIENT TEMPERATURE (BEAKER) 38.9 (test code = 1818) FIO2 (BEAKER) (test code = 1819) 60.0 GLUCOSE-STAT [id number] 22:08:00 Test Item Value Reference Range Interpretation Comments GLUCOSE RANDOM (BEAKER) (test code 239 mg/dL 70-110 H = 652) HGB/HCT (H&H) - STAT [id number] 22:08:00 Test Item Value Reference Range Interpretation Comments HEMOGLOBIN (BEAKER) (test code = 10.5 GM/DL 13.0-16.8 L 410) HEMATOCRIT (BEAKER) (test code = 31.0 % 40.0-50.0 L 411) SODIUM NA-STAT [id number] 22:07:00 Test Item Value Reference Range Interpretation Comments SODIUM (BEAKER) (test code = 381) 139 meq/L 136-145 POTASSIUM-STAT [id number] 22:07:00 Test Item Value Reference Range Interpretation Comments POTASSIUM (BEAKER) (test code = 3.9 meq/L 3.6-5.5 379) [id number] 20:48:00 Test Item Value Reference Range Interpretation Comments MAGNESIUM (BEAKER) (test code = 3.0 mg/dL 1.6-2.6 H 627) Commercial Marketing Specialist ID - BSLACTIC ACID, [id number] 20:48:00 Test Item Value Reference Range Interpretation Comments LACTATE BLOOD ARTERIAL (2) 7.1 mmol/L 0.5-2.2 HH (BEAKER) (test code = 2874) Commercial Marketing Specialist ID - BSBASIC METABOLIC [id number] 20:48:00 Test Item Value Reference Range Interpretation Comments SODIUM (BEAKER) 142 meq/L 136-145 (test code = 381) POTASSIUM (BEAKER) 3.8 meq/L 3.5-5.1 (test code = 379) CHLORIDE (BEAKER) 109 meq/L 98-107 H (test code = 382) CO2 (BEAKER) (test 21 meq/L 22-29 L code = 355) BLOOD UREA NITROGEN 21 mg/dL 7-21 (BEAKER) (test code = 354) CREATININE (BEAKER) 1.46 mg/dL 0.57-1.25 H (test code = 358) GLUCOSE RANDOM 291 mg/dL 70-105 H (BEAKER) (test code = 652) CALCIUM (BEAKER) 7.3 mg/dL 8.4-10.2 L (test code = 697) EGFR (BEAKER) (test 49 mL/min/1.73 ESTIMA JOSEFINA GFR IS code = 1092) sq m NOT ACCURATE CREATININE CLEARANCE IN PREDICTING GLOMERULAR FILTRATION RATE . ESTIMATED GFR I S NOT APPLICABLE FOR DIALYSIS PATIEN TS. Commercial Marketing Specialist ID - [id number] 20:48:00 Test Item Value Reference Range Interpretation Comments PARTIAL THROMBOPLASTIN TIME 82.5 seconds 22.5-36.0 H (BEAKER) (test code = 760) PROTHROMBIN TIME/[id number] 20:47:00 Test Item Value Reference Range Interpretation Comments PROTIME (BEAKER) (test code = 17.5 seconds 11.9-14.2 H 759) INR (BEAKER) (test code = 370) 1.48 <=5.90 Effective 12/10/2018: PT Reference Range ChangeNew: 11.9-14.2 Previous: 11.7- 14.7RECOMMENDED COUMADIN/WARFARIN INR THERAPY RANGESSTANDARD DOSE: 2.0-3.0 Includes: PROPHYLAXIS for venous thrombosis, systemic embolization; TREATMENT for venous thrombosis and/or pulmonary embolus.HIGH RISK: Target INR is 2.5-3.5 for patients wiht mechanical heart valves.[id number] 20:47:00 Test Item Value Reference Range Interpretation Comments FIBRINOGEN LEVEL (BEAKER) (test 229 mg/dl 225-434 code = 658) CBC (HEMOGRAM ONLY)2020-06-06 20:40:00 Test Item Value Reference Range Interpretation Comments WHITE BLOOD CELL COUNT (BEAKER) 19.6 K/ L 3.5-10.5 H (test code = 775) RED BLOOD CELL COUNT (BEAKER) 3.38 M/ L 4.63-6.08 L (test code = 761) HEMOGLOBIN (BEAKER) (test code = 10.2 GM/DL 13.7-17.5 L 410) HEMATOCRIT (BEAKER) (test code = 32.3 % 40.1-51.0 L 411) MEAN CORPUSCULAR VOLUME (BEAKER) 95.6 fL 79.0-92.2 H (test code = 753) MEAN CORPUSCULAR HEMOGLOBIN 30.2 pg 25.7-32.2 (BEAKER) (test code = 751) MEAN CORPUSCULAR HEMOGLOBIN CONC 31.6 GM/DL 32.3-36.5 L (BEAKER) (test code = 752) RED CELL DISTRIBUTION WIDTH 13.4 % 11.6-14.4 (BEAKER) (test code = 412) PLATELET COUNT (BEAKER) (test 124 K/CU MM 150-450 L code = 756) MEAN PLATELET VOLUME (BEAKER) 10.8 fL 9.4-12.4 (test code = 754) NUCLEATED RED BLOOD CELLS 0 /100 WBC 0-0 (BEAKER) (test code = 413) BLOOD GAS, [id number] 20:18:00 Test Item Value Reference Range Interpretation Comments PH ARTERIAL (BEAKER) (test code = 7.29 7.35-7.45 L 383) PCO2 ARTERIAL (BEAKER) (test code 50 mm Hg 35-45 H = 384) PO2 ARTERIAL (BEAKER) (test code 155 mm Hg 80-90 H = 385) O2 SATURATION ARTERIAL (BEAKER) 98.6 % 96.0-97.0 H (test code = 386) HCO3 ARTERIAL (BEAKER) (test code 23 mmol/L 21-29 = 388) BASE EXCESS ARTERIAL (BEAKER) -3.1 mmol/L -2.0-3.0 L (test code = 387) PATIENT TEMPERATURE (BEAKER) 38.7 (test code = 1818) FIO2 (BEAKER) (test code = 1819) 60.0 CALCIUM, [id number] 20:18:00 Test Item Value Reference Range Interpretation Comments CALCIUM IONIZED (BEAKER) (test 1.10 mmol/L 1.12-1.27 L code = 698) PH, BLOOD (BEAKER) (test code = 7.32 1810) POCT-GLUCOSE [id number] 18:22:00 Test Item Value Reference Range Interpretation Comments POC-GLUCOSE METER 288 mg/dL 70-110 H : TESTED A T [facility] ([facility] (test code = [facility], 1538) [id number]: Commercial Marketing Specialist/Techni yamini ID = [id number] for BHARAT MCCARTHY POCT-GLUCOSE [id number] 18:20:00 Test Item Value Reference Range Interpretation Comments POC-GLUCOSE METER 276 mg/dL 70-110 H : TESTED A T [facility] 67[facility] ([facility]) (test code = [facility], 1538) [id number]: Commercial Marketing Specialist/Techni yamnii ID = [id number] for BHARAT MCCARTHY LACTIC ACID, [id number] 17:49:00 Test Item Value Reference Range Interpretation Comments LACTATE BLOOD 9.7 mmol/L 0.5-2.2 HH Specimen sligh tly ARTERIAL (2) ([facility]) hemoly zed (test code = 2874) Commercial Marketing Specialist ID - ADMINPOCT-GLUCOSE [id number] 17:14:00 Test Item Value Reference Range Interpretation Comments POC-GLUCOSE METER 293 mg/dL 70-110 H : TESTED A T [facility] 6720 (BEAKER) (test code = [facility], 1538) [id number]: Commercial Marketing Specialist/Techni yamini ID = [id number] for BHARAT MCCARTHY [id number] 16:47:00 Test Item Value Reference Range Interpretation Comments FIBRINOGEN LEVEL (BEAKER) (test 262 mg/dl 225-434 code = 658) [id number] 16:47:00 Test Item Value Reference Range Interpretation Comments PROTIME (BEAKER) (test code = 19.7 seconds 11.9-14.2 H 759) INR (BEAKER) (test code = 370) 1.72 <=5.90 PARTIAL THROMBOPLASTIN TIME 30.9 seconds 22.5-36.0 (BEAKER) (test code = 760) Effective 12/10/2018: PT Reference Range ChangeNew: 11.9-14.2 Previous: 11.7- 14.7RECOMMENDED COUMADIN/WARFARIN INR THERAPY RANGESSTANDARD DOSE: 2.0-3.0 Includes: PROPHYLAXIS for venous thrombosis, systemic embolization; TREATMENT for venous thrombosis and/or pulmonary embolus.HIGH RISK: Target INR is 2.5-3.5 for patients wiht mechanical heart valves.PROTHROMBIN [id number] 16:46:00 Test Item Value Reference Range Interpretation Comments PROTIME (BEAKER) (test code = 19.7 seconds 11.9-14.2 H 759) INR (BEAKER) (test code = 370) 1.72 <=5.90 Effective 12/10/2018: PT Reference Range ChangeNew: 11.9-14.2 Previous: 11.7- 14.7RECOMMENDED COUMADIN/WARFARIN INR THERAPY RANGESSTANDARD DOSE: 2.0-3.0 Includes: PROPHYLAXIS for venous thrombosis, systemic embolization; TREATMENT for venous thrombosis and/or pulmonary embolus.HIGH RISK: Target INR is 2.5-3.5 for patients wiht mechanical heart valves.BLOOD GAS, [id number] 16:16:00 Test Item Value Reference Range Interpretation Comments PH ARTERIAL (BEAKER) (test code = 7.40 7.35-7.45 383) PCO2 ARTERIAL (BEAKER) (test code 37 mm Hg 35-45 = 384) PO2 ARTERIAL (BEAKER) (test code 120 mm Hg 80-90 H = 385) O2 SATURATION ARTERIAL (BEAKER) 98.3 % 96.0-97.0 H (test code = 386) HCO3 ARTERIAL (BEAKER) (test code 23 mmol/L 21-29 = 388) BASE EXCESS ARTERIAL (BEAKER) -1.7 mmol/L -2.0-3.0 (test code = 387) PATIENT TEMPERATURE (BEAKER) 37.2 (test code = 1818) FIO2 (BEAKER) (test code = 1819) 60.0 LACTIC ACID, [id number] 16:10:00 Test Item Value Reference Range Interpretation Comments LACTATE BLOOD 7.2 mmol/L 0.5-2.2 HH Specimen moder ately ARTERIAL (2) (BEAKER) hemoly zed (test code = 2874) Commercial Marketing Specialist ID - ADMINCOMPREHENSIVE METABOLIC [id number] 16:05:00 Test Item Value Reference Range Interpretation Comments TOTAL PROTEIN 5.4 gm/dL 6.0-8.3 L Specimen moder ately (BEAKER) (test code = hemoly zed 770) ALBUMIN (BEAKER) 2.9 g/dL 3.5-5.0 L Specimen mo derately (test code = 1145) hemolyzed ALKALINE PHOSPHATASE 72 U/L 40-150 (BEAKER) (test code = 346) BILIRUBIN TOTAL 0.9 mg/dL 0.2-1.2 Specimen mod erately (BEAKER) (test code = hemoly zed 377) SODIUM (BEAKER) (test 141 meq/L 136-145 code = 381) POTASSIUM (BEAKER) 4.5 meq/L 3.5-5.1 Specimen moderately (test code = 379) hemolyzed CHLORIDE (BEAKER) 108 meq/L 98-107 H (test code = 382) CO2 (BEAKER) (test 19 meq/L 22-29 L code = 355) BLOOD UREA NITROGEN 20 mg/dL 7-21 (BEAKER) (test code = 354) CREATININE (BEAKER) 1.44 mg/dL 0.57-1.25 H Specimen moderately (test code = 358) hemolyzed GLUCOSE RANDOM 304 mg/dL 70-105 H (BEAKER) (test code = 652) CALCIUM (BEAKER) 7.9 mg/dL 8.4-10.2 L (test code = 697) AST (SGOT) (BEAKER) 91 U/L 5-34 H Specimen moderately (test code = 353) hemolyzed ALT (SGPT) (BEAKER) 33 U/L 6-55 Specimen moderately (test code = 347) hemolyzed EGFR (BEAKER) (test 50 mL/min/1.73 ESTIMA JOSEFINA GFR IS code = 1092) sq m NOT ACCURATE CREATININE CLEARANCE IN PREDICTING GLOMERULAR FILTRATION RATE . ESTIMATED GFR I S NOT APPLICABLE FOR DIALYSIS PATIEN TS. Commercial Marketing Specialist ID - [id number] 16:03:00 Test Item Value Reference Range Interpretation Comments MAGNESIUM (BEAKER) 3.5 mg/dL 1.6-2.6 H Specimen moderately (test code = 627) hemolyzed Commercial Marketing Specialist ID - [id number] 16:03:00 Test Item Value Reference Range Interpretation Comments PHOSPHORUS (BEAKER) 3.5 mg/dL 2.3-4.7 Specimen moderately (test code = 604) hemolyzed Commercial Marketing Specialist ID - ADMINCBC W/PLT COUNT & AUTO [id number] 15:45:00 Test Item Value Reference Range Interpretation Comments WHITE BLOOD CELL COUNT (BEAKER) 22.4 K/ L 3.5-10.5 H (test code = 775) RED BLOOD CELL COUNT (BEAKER) 4.40 M/ L 4.63-6.08 L (test code = 761) HEMOGLOBIN (BEAKER) (test code = 13.3 GM/DL 13.7-17.5 L 410) HEMATOCRIT (BEAKER) (test code = 41.4 % 40.1-51.0 411) MEAN CORPUSCULAR VOLUME (BEAKER) 94.1 fL 79.0-92.2 H (test code = 753) MEAN CORPUSCULAR HEMOGLOBIN 30.2 pg 25.7-32.2 (BEAKER) (test code = 751) MEAN CORPUSCULAR HEMOGLOBIN CONC 32.1 GM/DL 32.3-36.5 L (BEAKER) (test code = 752) RED CELL DISTRIBUTION WIDTH 13.4 % 11.6-14.4 (BEAKER) (test code = 412) PLATELET COUNT (BEAKER) (test 138 K/CU MM 150-450 L code = 756) MEAN PLATELET VOLUME (BEAKER) 10.3 fL 9.4-12.4 (test code = 754) NUCLEATED RED BLOOD CELLS 0 /100 WBC 0-0 (BEAKER) (test code = 413) NEUTROPHILS RELATIVE PERCENT 84 % (BEAKER) (test code = 429) LYMPHOCYTES RELATIVE PERCENT 7 % (BEAKER) (test code = 430) MONOCYTES RELATIVE PERCENT 8 % (BEAKER) (test code = 431) EOSINOPHILS RELATIVE PERCENT 0 % (BEAKER) (test code = 432) BASOPHILS RELATIVE PERCENT 0 % (BEAKER) (test code = 437) NEUTROPHILS ABSOLUTE COUNT 18.75 K/ L 1.78-5.38 H (BEAKER) (test code = 670) LYMPHOCYTES ABSOLUTE COUNT 1.50 K/ L 1.32-3.57 (BEAKER) (test code = 414) MONOCYTES ABSOLUTE COUNT (BEAKER) 1.87 K/ L 0.30-0.82 H (test code = 415) EOSINOPHILS ABSOLUTE COUNT 0.01 K/ L 0.04-0.54 L (BEAKER) (test code = 416) BASOPHILS ABSOLUTE COUNT (BEAKER) 0.06 K/ L 0.01-0.08 (test code = 417) IMMATURE GRANULOCYTES-RELATIVE 1 % 0-1 PERCENT (BEAKER) (test code = 2801) CBC (HEMOGRAM ONLY)2020-06-06 15:42:00 Test Item Value Reference Range Interpretation Comments WHITE BLOOD CELL COUNT (BEAKER) 22.4 K/ L 3.5-10.5 H (test code = 775) RED BLOOD CELL COUNT (BEAKER) 4.40 M/ L 4.63-6.08 L (test code = 761) HEMOGLOBIN (BEAKER) (test code = 13.3 GM/DL 13.7-17.5 L 410) HEMATOCRIT (BEAKER) (test code = 41.4 % 40.1-51.0 411) MEAN CORPUSCULAR VOLUME (BEAKER) 94.1 fL 79.0-92.2 H (test code = 753) MEAN CORPUSCULAR HEMOGLOBIN 30.2 pg 25.7-32.2 (BEAKER) (test code = 751) MEAN CORPUSCULAR HEMOGLOBIN CONC 32.1 GM/DL 32.3-36.5 L (BEAKER) (test code = 752) RED CELL DISTRIBUTION WIDTH 13.4 % 11.6-14.4 (BEAKER) (test code = 412) PLATELET COUNT (BEAKER) (test 138 K/CU MM 150-450 L code = 756) MEAN PLATELET VOLUME (BEAKER) 10.3 fL 9.4-12.4 (test code = 754) NUCLEATED RED BLOOD CELLS 0 /100 WBC 0-0 (BEAKER) (test code = 413) BLOOD GAS, [id number] 15:22:00 Test Item Value Reference Range Interpretation Comments PH ARTERIAL (BEAKER) (test code = 7.31 7.35-7.45 L 383) PCO2 ARTERIAL (BEAKER) (test code 40 mm Hg 35-45 = 384) PO2 ARTERIAL (BEAKER) (test code 96 mm Hg 80-90 H = 385) O2 SATURATION ARTERIAL (BEAKER) 96.8 % 96.0-97.0 (test code = 386) HCO3 ARTERIAL (BEAKER) (test code 19 mmol/L 21-29 L = 388) BASE EXCESS ARTERIAL (BEAKER) -6.3 mmol/L -2.0-3.0 L (test code = 387) PATIENT TEMPERATURE (BEAKER) 37.0 (test code = 1818) FIO2 (BEAKER) (test code = 1819) 60.0 GLUCOSE-STAT [id number] 15:22:00 Test Item Value Reference Range Interpretation Comments GLUCOSE RANDOM (BEAKER) (test code 267 mg/dL 70-110 H = 652) CALCIUM, [id number] 15:21:00 Test Item Value Reference Range Interpretation Comments CALCIUM IONIZED (BEAKER) (test 1.12 mmol/L 1.12-1.27 code = 698) PH, BLOOD (BEAKER) (test code = 7.26 1810) OXYGEN SATURATION, [id number] 15:20:00 Test Item Value Reference Range Interpretation Comments O2 SATURATION (MEASURED) (BEAKER) 67.1 % (test code = 1455) SODIUM NA-STAT [id number] 15:19:00 Test Item Value Reference Range Interpretation Comments SODIUM (BEAKER) (test code = 381) 139 meq/L 136-145 POTASSIUM-STAT [id number] 15:19:00 Test Item Value Reference Range Interpretation Comments POTASSIUM (BEAKER) (test code = 4.0 meq/L 3.6-5.5 379) HGB/HCT (H&H) - STAT [id number] 15:19:00 Test Item Value Reference Range Interpretation Comments HEMOGLOBIN (BEAKER) (test code = 13.6 GM/DL 13.0-16.8 410) HEMATOCRIT (BEAKER) (test code = 40.0 % 40.0-50.0 411) RAD, CHEST, 1 VIEW, NON [id number] 15:19:00Reason for exam:->Status post CV Surgery post op day 0Should this be performed at the bedside?->Yes [facility] 1960 Sex: MFINAL REPORT RAD, CHEST, 1 VIEW, NON DEPT INDICATION: Status post CV Surgery post op day 0 COMPARISON: 12 hours prior FINDINGS: Portable frontal view of the chest. IMPRESSION: Support Lines: Endotracheal tube terminates 9 cm above the ugo. Pulmonary arterial pressure catheter terminates over the right main pulmonary artery. Mediastinal drains are present. An aortic balloon pump marker projects over the lower thoracic aorta. Lungs and pleura: Basilar consolidation versus subsegmental atelectasis on the left, favoring the latter. No pneumothorax.Heart and mediastinum: Stable contours. Sternotomy wires are intact.Additional findings: None. Signed: JR Roe Robert MDReport Verified Date/Time: 06/06/2020 15:19:17 Reading Location: [facility] Radiology Reading Room [id number] 14:22:00 Test Item Value Reference Range Interpretation Comments ACTIVATED CLOTTING TIME 109 sec : 74 -137 seconds, (BEAKER) (test code = Baseli ne: TESTED AT 441) [address], [facility] 30: Commercial Marketing Specialist/Techni yamini ID = [id number] for BARB JEONG [id number] 14:22:00 Test Item Value Reference Range Interpretation Comments ACTIVATED CLOTTING TIME 422 sec : 74 -137 seconds, (BEAKER) (test code = Baseli ne: TESTED AT 441) [address], [facility] 30: Commercial Marketing Specialist/Techni yamini ID = [id number] for BARB JEONG [id number] 14:22:00 Test Item Value Reference Range Interpretation Comments ACTIVATED CLOTTING TIME 521 sec : 74 -137 seconds, (BEAKER) (test code = Baseli ne: TESTED AT 441) [address], [address] 30: Commercial Marketing Specialist/Techni yamini ID = [id number] for BARB JEONG [id number] 14:21:00 Test Item Value Reference Range Interpretation Comments ACTIVATED CLOTTING TIME 439 sec : 74 -137 seconds, (BEAKER) (test code = Baseli ne: TESTED AT 441) [address], [address] 30: Commercial Marketing Specialist/Techni yamini ID = [id number] for BARB JEONG [id number] 14:21:00 Test Item Value Reference Range Interpretation Comments ACTIVATED CLOTTING TIME 555 sec : 74 -137 seconds, (BEAKER) (test code = Baseli ne: TESTED AT 441) [address], [address] 30: Commercial Marketing Specialist/Techni yamini ID = [id number] for BARB JEONG [id number] 14:21:00 Test Item Value Reference Range Interpretation Comments ACTIVATED CLOTTING TIME 593 sec : 74 -137 seconds, (BEAKER) (test code = Baseli ne: TESTED AT 441) [address], [address] 30: Commercial Marketing Specialist/Techni yamini ID = [id number] for BARB JEONG [id number] 14:21:00 Test Item Value Reference Range Interpretation Comments ACTIVATED CLOTTING TIME 114 sec : 74 -137 seconds, (BEAKER) (test code = Baseli ne: TESTED AT 441) [address], [address] 30: Commercial Marketing Specialist/Techni yamini ID = [id number] for BARB JEONG CALCIUM, [id number] 13:51:00 Test Item Value Reference Range Interpretation Comments CALCIUM IONIZED (BEAKER) (test 0.92 mmol/L 1.12-1.27 L code = 698) PH, BLOOD (BEAKER) (test code = 7.31 9720) BLOOD GAS, [id number] 13:51:00 Test Item Value Reference Range Interpretation Comments PH ARTERIAL (BEAKER) (test code = 7.39 7.35-7.45 383) PCO2 ARTERIAL (BEAKER) (test code 35 mm Hg 35-45 = 384) PO2 ARTERIAL (BEAKER) (test code 327 mm Hg 80-90 H = 385) O2 SATURATION ARTERIAL (BEAKER) 99.7 % 96.0-97.0 H (test code = 386) HCO3 ARTERIAL (BEAKER) (test code 22 mmol/L 21-29 = 388) BASE EXCESS ARTERIAL (BEAKER) -4.0 mmol/L -2.0-3.0 L (test code = 387) PATIENT TEMPERATURE (BEAKER) 31.2 (test code = 1818) FIO2 (BEAKER) (test code = 1819) 100.0 GLUCOSE-STAT [id number] 13:51:00 Test Item Value Reference Range Interpretation Comments GLUCOSE RANDOM (BEAKER) (test code 277 mg/dL 70-110 H = 652) HGB/HCT (H&H) - STAT [id number] 13:51:00 Test Item Value Reference Range Interpretation Comments HEMOGLOBIN (BEAKER) (test code = 10.7 GM/DL 13.0-16.8 L 410) HEMATOCRIT (BEAKER) (test code = 31.0 % 40.0-50.0 L 411) SODIUM NA-STAT [id number] 13:49:00 Test Item Value Reference Range Interpretation Comments SODIUM (BEAKER) (test code = 381) 137 meq/L 136-145 POTASSIUM-STAT [id number] 13:49:00 Test Item Value Reference Range Interpretation Comments POTASSIUM (BEAKER) (test code = 3.5 meq/L 3.6-5.5 L 379) SODIUM NA-STAT [id number] 12:29:00 Test Item Value Reference Range Interpretation Comments SODIUM (BEAKER) (test code = 381) 136 meq/L 136-145 POTASSIUM-STAT [id number] 12:29:00 Test Item Value Reference Range Interpretation Comments POTASSIUM (BEAKER) (test code = 4.4 meq/L 3.6-5.5 379) BLOOD GAS, [id number] 12:29:00 Test Item Value Reference Range Interpretation Comments PH ARTERIAL (BEAKER) (test code = 7.36 7.35-7.45 383) PCO2 ARTERIAL (BEAKER) (test code 35 mm Hg 35-45 = 384) PO2 ARTERIAL (BEAKER) (test code 223 mm Hg 80-90 H = 385) O2 SATURATION ARTERIAL (BEAKER) 99.5 % 96.0-97.0 H (test code = 386) HCO3 ARTERIAL (BEAKER) (test code 20 mmol/L 21-29 L = 388) BASE EXCESS ARTERIAL (BEAKER) -5.3 mmol/L -2.0-3.0 L (test code = 387) PATIENT TEMPERATURE (BEAKER) 36.0 (test code = 1818) FIO2 (BEAKER) (test code = 1819) 63.5 GLUCOSE-STAT [id number] 12:29:00 Test Item Value Reference Range Interpretation Comments GLUCOSE RANDOM (BEAKER) (test code 271 mg/dL 70-110 H = 652) HGB/HCT (H&H) - STAT [id number] 12:29:00 Test Item Value Reference Range Interpretation Comments HEMOGLOBIN (BEAKER) (test code = 10.6 GM/DL 13.0-16.8 L 410) HEMATOCRIT (BEAKER) (test code = 31.0 % 40.0-50.0 L 411) SODIUM NA-STAT [id number] 12:05:00 Test Item Value Reference Range Interpretation Comments SODIUM (BEAKER) (test code = 381) 136 meq/L 136-145 BLOOD GAS, [id number] 12:05:00 Test Item Value Reference Range Interpretation Comments PH ARTERIAL (BEAKER) (test code = 7.35 7.35-7.45 383) PCO2 ARTERIAL (BEAKER) (test code 40 mm Hg 35-45 = 384) PO2 ARTERIAL (BEAKER) (test code 249 mm Hg 80-90 H = 385) O2 SATURATION ARTERIAL (BEAKER) 99.5 % 96.0-97.0 H (test code = 386) HCO3 ARTERIAL (BEAKER) (test code 22 mmol/L 21-29 = 388) BASE EXCESS ARTERIAL (BEAKER) -3.7 mmol/L -2.0-3.0 L (test code = 387) PATIENT TEMPERATURE (BEAKER) 37.0 (test code = 1818) FIO2 (BEAKER) (test code = 1819) 70.0 POTASSIUM-STAT [id number] 12:05:00 Test Item Value Reference Range Interpretation Comments POTASSIUM (BEAKER) (test code = 5.9 meq/L 3.6-5.5 H 379) GLUCOSE-STAT [id number] 12:05:00 Test Item Value Reference Range Interpretation Comments GLUCOSE RANDOM (BEAKER) (test code 137 mg/dL 70-110 H = 652) HGB/HCT (H&H) - STAT [id number] 12:05:00 Test Item Value Reference Range Interpretation Comments HEMOGLOBIN (BEAKER) (test code = 10.4 GM/DL 13.0-16.8 L 410) HEMATOCRIT (BEAKER) (test code = 31.0 % 40.0-50.0 L 411) GLUCOSE-STAT [id number] 11:27:00 Test Item Value Reference Range Interpretation Comments GLUCOSE RANDOM (BEAKER) (test code 116 mg/dL 70-110 H = 652) HGB/HCT (H&H) - STAT [id number] 11:27:00 Test Item Value Reference Range Interpretation Comments HEMOGLOBIN (BEAKER) (test code = 12.8 GM/DL 13.0-16.8 L 410) HEMATOCRIT (BEAKER) (test code = 38.0 % 40.0-50.0 L 411) BLOOD GAS, [id number] 11:25:00 Test Item Value Reference Range Interpretation Comments PH ARTERIAL (BEAKER) (test code = 7.44 7.35-7.45 383) PCO2 ARTERIAL (BEAKER) (test code 36 mm Hg 35-45 = 384) PO2 ARTERIAL (BEAKER) (test code 241 mm Hg 80-90 H = 385) O2 SATURATION ARTERIAL (BEAKER) 99.6 % 96.0-97.0 H (test code = 386) HCO3 ARTERIAL (BEAKER) (test code 25 mmol/L 21-29 = 388) BASE EXCESS ARTERIAL (BEAKER) -0.3 mmol/L -2.0-3.0 (test code = 387) PATIENT TEMPERATURE (BEAKER) 32.0 (test code = 1818) FIO2 (BEAKER) (test code = 1819) 60.0 BLOOD GAS, [id number] 11:24:00 Test Item Value Reference Range Interpretation Comments PH VENOUS (BEAKER) (test code = 7.43 7.32-7.42 H 701) PCO2 VENOUS (BEAKER) (test code = 37 mm Hg 41-51 L 755) PO2 VENOUS (BEAKER) (test code = 43 mm Hg 25-40 H 702) O2 SATURATION VENOUS (BEAKER) 90.4 % 40.0-70.0 H (test code = 703) HCO3 VENOUS (BEAKER) (test code = 26 mmol/L 21-29 705) BASE EXCESS VENOUS (BEAKER) (test -0.4 mmol/L -2.0-3.0 code = 704) PATIENT TEMPERATURE (BEAKER) 32.0 (test code = 1818) FIO2 (BEAKER) (test code = 1819) 60.0 SODIUM NA-STAT [id number] 11:23:00 Test Item Value Reference Range Interpretation Comments SODIUM (BEAKER) (test code = 381) 135 meq/L 136-145 L POTASSIUM-STAT [id number] 11:23:00 Test Item Value Reference Range Interpretation Comments POTASSIUM (BEAKER) (test code = 5.2 meq/L 3.6-5.5 379) BLOOD GAS, [id number] 10:00:00 Test Item Value Reference Range Interpretation Comments PH ARTERIAL (BEAKER) (test code = 7.51 7.35-7.45 H 383) PCO2 ARTERIAL (BEAKER) (test code 32 mm Hg 35-45 L = 384) PO2 ARTERIAL (BEAKER) (test code = 253 mm Hg 80-90 H 385) O2 SATURATION ARTERIAL (BEAKER) 99.7 % 96.0-97.0 H (test code = 386) HCO3 ARTERIAL (BEAKER) (test code 25 mmol/L 21-29 = 388) BASE EXCESS ARTERIAL (BEAKER) 1.9 mmol/L -2.0-3.0 (test code = 387) PATIENT TEMPERATURE (BEAKER) (test 35.6 code = 1818) FIO2 (BEAKER) (test code = 1819) 100.0 CALCIUM, [id number] 10:00:00 Test Item Value Reference Range Interpretation Comments CALCIUM IONIZED (BEAKER) (test 1.09 mmol/L 1.12-1.27 L code = 698) PH, BLOOD (BEAKER) (test code = 7.48 1810) GLUCOSE-STAT [id number] 09:58:00 Test Item Value Reference Range Interpretation Comments GLUCOSE RANDOM (BEAKER) (test code 106 mg/dL 70-110 = 652) SODIUM NA-STAT [id number] 09:58:00 Test Item Value Reference Range Interpretation Comments SODIUM (BEAKER) (test code = 381) 135 meq/L 136-145 L POTASSIUM-STAT [id number] 09:58:00 Test Item Value Reference Range Interpretation Comments POTASSIUM (BEAKER) (test code = 4.0 meq/L 3.6-5.5 379) HGB/HCT (H&H) - STAT [id number] 09:58:00 Test Item Value Reference Range Interpretation Comments HEMOGLOBIN (BEAKER) (test code = 14.6 GM/DL 13.0-16.8 410) HEMATOCRIT (BEAKER) (test code = 43.0 % 40.0-50.0 411) [id number] 06:17:00 Test Item Value Reference Range Interpretation Comments MAGNESIUM (BEAKER) 2.2 mg/dL 1.6-2.6 Specimen slightly (test code = 627) hemolyzed Commercial Marketing Specialist ID - ADMINBASIC METABOLIC [id number] 06:17:00 Test Item Value Reference Range Interpretation Comments SODIUM (BEAKER) 139 meq/L 136-145 (test code = 381) POTASSIUM (BEAKER) 4.0 meq/L 3.5-5.1 Specimen slightly (test code = 379) hemolyzed CHLORIDE (BEAKER) 102 meq/L 98-107 (test code = 382) CO2 (BEAKER) (test 26 meq/L 22-29 code = 355) BLOOD UREA NITROGEN 17 mg/dL 7-21 (BEAKER) (test code = 354) CREATININE (BEAKER) 1.13 mg/dL 0.57-1.25 Specimen slightly (test code = 358) hemolyzed GLUCOSE RANDOM 93 mg/dL 70-105 (BEAKER) (test code = 652) CALCIUM (BEAKER) 9.1 mg/dL 8.4-10.2 (test code = 697) EGFR (BEAKER) (test 66 mL/min/1.73 ESTIMA JOSEFINA GFR IS code = 1092) sq m NOT ACCURATE CREATININE CLEARANCE IN PREDICTING GLOMERULAR FILTRATION RATE . ESTIMATED GFR I S NOT APPLICABLE FOR DIALYSIS PATIEN TS. Commercial Marketing Specialist ID - [id number] 06:08:00 Test Item Value Reference Range Interpretation Comments PARTIAL THROMBOPLASTIN TIME 90.7 seconds 22.5-36.0 H (BEAKER) (test code = 760) PROTHROMBIN [id number] 06:06:00 Test Item Value Reference Range Interpretation Comments PROTIME (BEAKER) (test code = 14.4 seconds 11.9-14.2 H 759) INR (BEAKER) (test code = 370) 1.15 <=5.90 Effective 12/10/2018: PT Reference Range ChangeNew: 11.9-14.2 Previous: 11.7- 14.7RECOMMENDED COUMADIN/WARFARIN INR THERAPY RANGESSTANDARD DOSE: 2.0-3.0 Includes: PROPHYLAXIS for venous thrombosis, systemic embolization; TREATMENT for venous thrombosis and/or pulmonary embolus.HIGH RISK: Target INR is 2.5-3.5 for patients wiht mechanical heart valves.CBC (HEMOGRAM ONLY)2020-06-06 05:43:00 Test Item Value Reference Range Interpretation Comments WHITE BLOOD CELL COUNT (BEAKER) 7.5 K/ L 3.5-10.5 (test code = 775) RED BLOOD CELL COUNT (BEAKER) 4.74 M/ L 4.63-6.08 (test code = 761) HEMOGLOBIN (BEAKER) (test code = 14.1 GM/DL 13.7-17.5 410) HEMATOCRIT (BEAKER) (test code = 44.1 % 40.1-51.0 411) MEAN CORPUSCULAR VOLUME (BEAKER) 93.0 fL 79.0-92.2 H (test code = 753) MEAN CORPUSCULAR HEMOGLOBIN 29.7 pg 25.7-32.2 (BEAKER) (test code = 751) MEAN CORPUSCULAR HEMOGLOBIN CONC 32.0 GM/DL 32.3-36.5 L (BEAKER) (test code = 752) RED CELL DISTRIBUTION WIDTH 13.6 % 11.6-14.4 (BEAKER) (test code = 412) PLATELET COUNT (BEAKER) (test 242 K/CU MM 150-450 code = 756) MEAN PLATELET VOLUME (BEAKER) 10.8 fL 9.4-12.4 (test code = 754) NUCLEATED RED BLOOD CELLS 0 /100 WBC 0-0 (BEAKER) (test code = 413) RAD, CHEST, 1 VIEW, NON [id number] 03:36:00Reason for exam:->iabp positionShould this be performed at the bedside?->Yes [facility] : 1960 Sex: MFINAL REPORT RAD, CHEST, 1 VIEW, NON DEPT INDICATION: iabp position COMPARISON:Prior day's exam FINDINGS: Portable frontal view of the chest. IMPRESSION: Support Lines: IABP is atthe aortic knob superior margin. Lungs and pleura: Minimal left lung base atelectasis or scarring. Lungs are well aerated. No overt pulmonary edema. No pneumothorax.Heart and mediastinum: Stable contour s. Additional findings: None. Signed: Fam Craft MDReport Verified Date/Time: 06/06/2020 03:36:00 [id number] 01:07:00 Test Item Value Reference Range Interpretation Comments PARTIAL THROMBOPLASTIN TIME 76.5 seconds 22.5-36.0 H (BEAKER) (test code = 760) [id number] 14:53:00 Test Item Value Reference Range Interpretation Comments MAGNESIUM (BEAKER) 2.4 mg/dL 1.6-2.6 Specimen markedly (test code = 627) hemolyzed Commercial Marketing Specialist ID - [id number] 14:53:00 Test Item Value Reference Range Interpretation Comments POTASSIUM (BEAKER) 5.1 meq/L 3.5-5.1 Specimen markedly (test code = 379) hemolyzed Commercial Marketing Specialist ID - AAHAMIDRAD, CHEST, 1 VIEW, NON [id number] 07:50:00Reason for exam:->pulmonary edemaShould this be performed at the bedside?->Yes [facility] : 1960 Sex: MFINAL REPORT TECHNIQUE: Frontal view of the chest. INDICATION: 59-year-old man with pulmonary edema. COMPARISON: Chest radiograph 06/01/2020. FINDINGS: LINES/TUBES/DEVICES: None. LUNGS: Lungs are well inflated. No consolidation or pulmonary edema. PLEURA: Questionable trace left pleural effusion. No pneumothorax. HEART AND MEDIASTINUM: Cardiomediastinal silhouette is unchanged. BONES AND SOFT TISSUES: Unremarkable. IMPRESSION:Questionable trace left pleural effusion. Otherwise, no acute cardiopulmonary abnormalities. Signed: Buffy Bolden MDReport Verified Date/Time: 06/05/2020 07:50:49 Reading Location: [address] Consult Reading Room BASIC METABOLIC [id number] 07:12:00 Test Item Value Reference Range Interpretation Comments SODIUM (BEAKER) 140 meq/L 136-145 (test code = 381) POTASSIUM (BEAKER) 3.9 meq/L 3.5-5.1 (test code = 379) CHLORIDE (BEAKER) 106 meq/L 98-107 (test code = 382) CO2 (BEAKER) (test 26 meq/L 22-29 code = 355) BLOOD UREA NITROGEN 15 mg/dL 7-21 (BEAKER) (test code = 354) CREATININE (BEAKER) 1.08 mg/dL 0.57-1.25 (test code = 358) GLUCOSE RANDOM 98 mg/dL 70-105 (BEAKER) (test code = 652) CALCIUM (BEAKER) 8.6 mg/dL 8.4-10.2 (test code = 697) EGFR (BEAKER) (test 70 mL/min/1.73 ESTIMA JOSEFINA GFR IS code = 1092) sq m NOT ACCURATE CREATININE CLEARANCE IN PREDICTING GLOMERULAR FILTRATION RATE . ESTIMATED GFR I S NOT APPLICABLE FOR DIALYSIS PATIEN TS. Commercial Marketing Specialist ID - GE [id number] 07:12:00 Test Item Value Reference Range Interpretation Comments MAGNESIUM (BEAKER) (test code = 2.0 mg/dL 1.6-2.6 627) Commercial Marketing Specialist ID - ARACELIDAO LCBC (HEMOGRAM ONLY)2020-06-05 05:50:00 Test Item Value Reference Range Interpretation Comments WHITE BLOOD CELL COUNT (BEAKER) 7.2 K/ L 3.5-10.5 (test code = 775) RED BLOOD CELL COUNT (BEAKER) 4.45 M/ L 4.63-6.08 L (test code = 761) HEMOGLOBIN (BEAKER) (test code = 13.4 GM/DL 13.7-17.5 L 410) HEMATOCRIT (BEAKER) (test code = 41.5 % 40.1-51.0 411) MEAN CORPUSCULAR VOLUME (BEAKER) 93.3 fL 79.0-92.2 H (test code = 753) MEAN CORPUSCULAR HEMOGLOBIN 30.1 pg 25.7-32.2 (BEAKER) (test code = 751) MEAN CORPUSCULAR HEMOGLOBIN CONC 32.3 GM/DL 32.3-36.5 (BEAKER) (test code = 752) RED CELL DISTRIBUTION WIDTH 13.6 % 11.6-14.4 (BEAKER) (test code = 412) PLATELET COUNT (BEAKER) (test 230 K/CU MM 150-450 code = 756) MEAN PLATELET VOLUME (BEAKER) 10.9 fL 9.4-12.4 (test code = 754) NUCLEATED RED BLOOD CELLS 0 /100 WBC 0-0 (BEAKER) (test code = 413) [id number] 04:57:00 Test Item Value Reference Range Interpretation Comments PARTIAL THROMBOPLASTIN TIME 88.7 seconds 22.5-36.0 H (BEAKER) (test code = 760) [id number] 20:13:00 Test Item Value Reference Range Interpretation Comments MAGNESIUM (BEAKER) (test code = 2.2 mg/dL 1.6-2.6 627) Commercial Marketing Specialist ID - [id number] 20:13:00 Test Item Value Reference Range Interpretation Comments POTASSIUM (BEAKER) (test code = 3.8 meq/L 3.5-5.1 379) Commercial Marketing Specialist ID - [id number] 10:59:00 Test Item Value Reference Range Interpretation Comments PARTIAL THROMBOPLASTIN TIME 77.1 seconds 22.5-36.0 H (BEAKER) (test code = 760) BASIC METABOLIC [id number] 04:43:00 Test Item Value Reference Range Interpretation Comments SODIUM (BEAKER) 141 meq/L 136-145 (test code = 381) POTASSIUM (BEAKER) 3.8 meq/L 3.5-5.1 (test code = 379) CHLORIDE (BEAKER) 106 meq/L 98-107 (test code = 382) CO2 (BEAKER) (test 25 meq/L 22-29 code = 355) BLOOD UREA NITROGEN 17 mg/dL 7-21 (BEAKER) (test code = 354) CREATININE (BEAKER) 1.13 mg/dL 0.57-1.25 (test code = 358) GLUCOSE RANDOM 91 mg/dL 70-105 (BEAKER) (test code = 652) CALCIUM (BEAKER) 8.8 mg/dL 8.4-10.2 (test code = 697) EGFR (BEAKER) (test 66 mL/min/1.73 ESTIMA JOSEFINA GFR IS code = 1092) sq m NOT ACCURATE CREATININE CLEARANCE IN PREDICTING GLOMERULAR FILTRATION RATE . ESTIMATED GFR I S NOT APPLICABLE FOR DIALYSIS PATIEN TS. Commercial Marketing Specialist ID - [id number] 04:43:00 Test Item Value Reference Range Interpretation Comments MAGNESIUM (BEAKER) (test code = 2.0 mg/dL 1.6-2.6 627) Commercial Marketing Specialist ID - [id number] 04:25:00 Test Item Value Reference Range Interpretation Comments PARTIAL THROMBOPLASTIN TIME 79.1 seconds 22.5-36.0 H (BEAKER) (test code = 760) CBC (HEMOGRAM ONLY)2020-06-04 04:15:00 Test Item Value Reference Range Interpretation Comments WHITE BLOOD CELL COUNT (BEAKER) 6.1 K/ L 3.5-10.5 (test code = 775) RED BLOOD CELL COUNT (BEAKER) 4.39 M/ L 4.63-6.08 L (test code = 761) HEMOGLOBIN (BEAKER) (test code = 13.2 GM/DL 13.7-17.5 L 410) HEMATOCRIT (BEAKER) (test code = 41.2 % 40.1-51.0 411) MEAN CORPUSCULAR VOLUME (BEAKER) 93.8 fL 79.0-92.2 H (test code = 753) MEAN CORPUSCULAR HEMOGLOBIN 30.1 pg 25.7-32.2 (BEAKER) (test code = 751) MEAN CORPUSCULAR HEMOGLOBIN CONC 32.0 GM/DL 32.3-36.5 L (BEAKER) (test code = 752) RED CELL DISTRIBUTION WIDTH 13.7 % 11.6-14.4 (BEAKER) (test code = 412) PLATELET COUNT (BEAKER) (test 210 K/CU MM 150-450 code = 756) MEAN PLATELET VOLUME (BEAKER) 10.1 fL 9.4-12.4 (test code = 754) NUCLEATED RED BLOOD CELLS 0 /100 WBC 0-0 (BEAKER) (test code = 413) [id number] 17:14:00 Test Item Value Reference Range Interpretation Comments ACTIVATED CLOTTING TIME 125 sec : 74 -137 seconds, (BEAKER) (test code = Romainei ne: TESTED AT 441) [facility] [address] [facility] [place], [address]: Commercial Marketing Specialist/Techni yamini ID = [id number] for CO NROD JUAN PABLO ([place])LIZ HEPATIC FUNCTION [id number] 05:00:00 Test Item Value Reference Range Interpretation Comments TOTAL PROTEIN (BEAKER) (test code = 6.0 gm/dL 6.0-8.3 770) ALBUMIN (BEAKER) (test code = 1145) 3.5 g/dL 3.5-5.0 BILIRUBIN TOTAL (BEAKER) (test code 0.6 mg/dL 0.2-1.2 = 377) BILIRUBIN DIRECT (BEAKER) (test 0.3 mg/dL 0.1-0.5 code = 706) ALKALINE PHOSPHATASE (BEAKER) (test 71 U/L 40-150 code = 346) AST (SGOT) (BEAKER) (test code = 25 U/L 5-34 353) ALT (SGPT) (BEAKER) (test code = 52 U/L 6-55 347) Commercial Marketing Specialist ID - [id number] 04:44:00 Test Item Value Reference Range Interpretation Comments PARTIAL THROMBOPLASTIN TIME 92.6 seconds 22.5-36.0 H (BEAKER) (test code = 760) CBC (HEMOGRAM ONLY)2020-06-03 04:26:00 Test Item Value Reference Range Interpretation Comments WHITE BLOOD CELL COUNT (BEAKER) 6.7 K/ L 3.5-10.5 (test code = 775) RED BLOOD CELL COUNT (BEAKER) 4.24 M/ L 4.63-6.08 L (test code = 761) HEMOGLOBIN (BEAKER) (test code = 12.7 GM/DL 13.7-17.5 L 410) HEMATOCRIT (BEAKER) (test code = 40.1 % 40.1-51.0 411) MEAN CORPUSCULAR VOLUME (BEAKER) 94.6 fL 79.0-92.2 H (test code = 753) MEAN CORPUSCULAR HEMOGLOBIN 30.0 pg 25.7-32.2 (BEAKER) (test code = 751) MEAN CORPUSCULAR HEMOGLOBIN CONC 31.7 GM/DL 32.3-36.5 L (BEAKER) (test code = 752) RED CELL DISTRIBUTION WIDTH 13.8 % 11.6-14.4 (BEAKER) (test code = 412) PLATELET COUNT (BEAKER) (test 208 K/CU MM 150-450 code = 756) MEAN PLATELET VOLUME (BEAKER) 10.8 fL 9.4-12.4 (test code = 754) NUCLEATED RED BLOOD CELLS 0 /100 WBC 0-0 (BEAKER) (test code = 413) [id number] 18:48:00 Test Item Value Reference Range Interpretation Comments PARTIAL THROMBOPLASTIN TIME 84.3 seconds 22.5-36.0 H (BEAKER) (test code = 760) [id number] 13:02:00 Test Item Value Reference Range Interpretation Comments PARTIAL THROMBOPLASTIN TIME 84.8 seconds 22.5-36.0 H (BEAKER) (test code = 760) BASIC METABOLIC [id number] 07:18:00 Test Item Value Reference Range Interpretation Comments SODIUM (BEAKER) 140 meq/L 136-145 (test code = 381) POTASSIUM (BEAKER) 3.9 meq/L 3.5-5.1 (test code = 379) CHLORIDE (BEAKER) 107 meq/L 98-107 (test code = 382) CO2 (BEAKER) (test 25 meq/L 22-29 code = 355) BLOOD UREA NITROGEN 18 mg/dL 7-21 (BEAKER) (test code = 354) CREATININE (BEAKER) 1.17 mg/dL 0.57-1.25 (test code = 358) GLUCOSE RANDOM 95 mg/dL 70-105 (BEAKER) (test code = 652) CALCIUM (BEAKER) 8.5 mg/dL 8.4-10.2 (test code = 697) EGFR (BEAKER) (test 64 mL/min/1.73 ESTIMA JOSEFINA GFR IS code = 1092) sq m NOT ACCURATE CREATININE CLEARANCE IN PREDICTING GLOMERULAR FILTRATION RATE . ESTIMATED GFR I S NOT APPLICABLE FOR DIALYSIS PATIEN TS. Commercial Marketing Specialist ID - ROSA [id number] 07:18:00 Test Item Value Reference Range Interpretation Comments MAGNESIUM (BEAKER) (test code = 2.0 mg/dL 1.6-2.6 627) Commercial Marketing Specialist ID - ROSA [id number] 07:18:00 Test Item Value Reference Range Interpretation Comments PHOSPHORUS (BEAKER) (test code = 3.8 mg/dL 2.3-4.7 604) Commercial Marketing Specialist ID - ROSA MHEPATIC FUNCTION [id number] 07:18:00 Test Item Value Reference Range Interpretation Comments TOTAL PROTEIN (BEAKER) (test code = 6.2 gm/dL 6.0-8.3 770) ALBUMIN (BEAKER) (test code = 1145) 3.6 g/dL 3.5-5.0 BILIRUBIN TOTAL (BEAKER) (test code 0.6 mg/dL 0.2-1.2 = 377) BILIRUBIN DIRECT (BEAKER) (test 0.2 mg/dL 0.1-0.5 code = 706) ALKALINE PHOSPHATASE (BEAKER) (test 74 U/L 40-150 code = 346) AST (SGOT) (BEAKER) (test code = 33 U/L 5-34 353) ALT (SGPT) (BEAKER) (test code = 58 U/L 6-55 H 347) Commercial Marketing Specialist ID - GE CONRAD - ROSA [place]ILL [id number] 06:44:00 Test Item Value Reference Range Interpretation Comments TROPONIN I (BEAKER) (test code = 0.02 ng/mL 0.00-0.03 397) Troponin I (TnI) levels must be interpreted in the context of the presenting symptoms and the clinical findings. Elevated TnI levels indicate myocardial damage, but are not specific for ischemic heart disease. Elevated TnI levels are seen in patients with other cardiac conditions (including myocarditis and congestive heart failure), and slight TnI elevations occur in patients with other conditions, including sepsis, renal failure, acidosis, acute neurological disease, and persistent tachyarrhythmia.Commercial Marketing Specialist ID Clayton [id number] 06:05:00 Test Item Value Reference Range Interpretation Comments PARTIAL THROMBOPLASTIN TIME 68.9 seconds 22.5-36.0 H (BEAKER) (test code = 760) 6 hours after starting heparin infusion and as indicated per sliding scale PROTHROMBIN TIME/[id number] 06:03:00 Test Item Value Reference Range Interpretation Comments PROTIME (BEAKER) (test code = 14.8 seconds 11.9-14.2 H 759) INR (BEAKER) (test code = 370) 1.19 <=5.90 Effective 12/10/2018: PT Reference Range ChangeNew: 11.9-14.2 Previous: 11.7- 14.7RECOMMENDED COUMADIN/WARFARIN INR THERAPY RANGESSTANDARD DOSE: 2.0-3.0 Includes: PROPHYLAXIS for venous thrombosis, systemic embolization; TREATMENT for venous thrombosis and/or pulmonary embolus.HIGH RISK: Target INR is 2.5-3.5 for patients wiht mechanical heart valves.6 hours after starting heparin infusion and as indicated per sliding scaleCBC (HEMOGRAM ONLY)2020-06-02 05:49:00 Test Item Value Reference Range Interpretation Comments WHITE BLOOD CELL COUNT (BEAKER) 6.8 K/ L 3.5-10.5 (test code = 775) RED BLOOD CELL COUNT (BEAKER) 4.50 M/ L 4.63-6.08 L (test code = 761) HEMOGLOBIN (BEAKER) (test code = 13.6 GM/DL 13.7-17.5 L 410) HEMATOCRIT (BEAKER) (test code = 41.9 % 40.1-51.0 411) MEAN CORPUSCULAR VOLUME (BEAKER) 93.1 fL 79.0-92.2 H (test code = 753) MEAN CORPUSCULAR HEMOGLOBIN 30.2 pg 25.7-32.2 (BEAKER) (test code = 751) MEAN CORPUSCULAR HEMOGLOBIN CONC 32.5 GM/DL 32.3-36.5 (BEAKER) (test code = 752) RED CELL DISTRIBUTION WIDTH 13.9 % 11.6-14.4 (BEAKER) (test code = 412) PLATELET COUNT (BEAKER) (test 230 K/CU MM 150-450 code = 756) MEAN PLATELET VOLUME (BEAKER) 10.3 fL 9.4-12.4 (test code = 754) NUCLEATED RED BLOOD CELLS 0 /100 WBC 0-0 (BEAKER) (test code = 413) [id number] 02:56:00 Test Item Value Reference Range Interpretation Comments PARTIAL THROMBOPLASTIN TIME 51.8 seconds 22.5-36.0 H (BEAKER) (test code = 760) TROPONIN [id number] 01:05:00 Test Item Value Reference Range Interpretation Comments TROPONIN I (BEAKER) (test code = 0.03 ng/mL 0.00-0.03 397) Troponin I (TnI) levels must be interpreted in the context of the presenting symptoms and the clinical findings. Elevated TnI levels indicate myocardial damage, but are not specific for ischemic heart disease. Elevated TnI levels are seen in patients with other cardiac conditions (including myocarditis and congestive heart failure), and slight TnI elevations occur in patients with other conditions, including sepsis, renal failure, acidosis, acute neurological disease, and persistent tachyarrhythmia.Commercial Marketing Specialist ID - PIAYA LSARS-COV2/RT-PCR ([facility])2020-06-01 23:05:00 Test Item Value Reference Range Interpretation Comments SARS-COV2/RT-PCR (test Negative Not Detected, Negative, code = 7167061) See external report for linked test SARS-COV-2 PERFORMING LAB [facility] (test code = 0085417) Negative result for this test determines that SARS-CoV-2 RNA was not present in the specimen above the Limit of Detection (LOD). However, Negative results do not preclude SARS-CoV-2 infection and should not be used as the sole basis for treatment or patient management decisions. Negative results must be combined with clinical observations, patient history, and epidemiological information. A false negative result may occur if a specimen is improperly collected, transported or handled. A false negative result should be considered if patient's recent exposures or clinical presentation indicate that COVID-19 (SARS-CoV-2) is likely and diagnostic tests for other causes of illness are negative. Re-testing should be considered in cases of suspected false negatives.The limit of detection for this assay is 800 copies/mL.This SARS CoV-2 test is a real-time RT-PCR test intended for the qualitative detection of nucleic acid from SARS-CoV-2 in a nasopharyngeal swab specimen collected from individuals suspected of COVID-19 by their healthcare provider.This test has not been Food and Drug Administration (FDA) cleared or approved. This is a modified version of an approved Emergency Use Authorization (EUA) and is in the process of review by the FDA. Once authorized by the FDA, the issued EUA will be effective until the declaration that circumstances exist justifying the authorization of the emergency use ofin vitro diagnostic tests for detection and/or diagnosis of COVID-19 is terminated under Section 564(b)(2) of the Act or the EUA is revoked under Section 564(g) of the Act.Fact Sheet for Healthcare Prov iders:https://www.[employer]/sites/default/files/product/documents/Fact_Sheet_HC _Dcgsezgjr_Trey_SRFS-CnM-0.pdfFact Sheet for Healthcare Patients:https://www.[employer]/sites/default/files/product/docume nts/Miqi_Oqkqo_Kiyjlwxn_Iaez_NMHT-ByF-2.pdfPerforming Laboratory:[facility], [place] [address]STE, CHEST, 2 VIEWS 2020-06-01 22:12:00Reason for exam:->dyspnaShould this be performed at the bedside?->NoMILLER [facility] : 1960 Sex: MFINAL REPORT RAD, CHEST, 2 VIEWS TECHNIQUE: Frontal and lateral views of the chest. INDICATION: dyspnea COMPARISON: None. FINDINGS/IMPRESSION: Lungs: No focal consolidation or definite interstitial edema. Mild bibasal atelectasis related to small bilateral pleural effusions. Pleura: No pneumothorax. Small bilateral pleural effusions.. Heart and Mediastinum: Mild cardiomegaly, othe rwise unremarkable. Lines/Tubes: None. Soft Tissues and Bones: Suture anchors in the right humeral head. No acute osseous. Signed: Eligio Arreaga Verified Date/Time: 06/01/2020 22:12:01 Reading Location: [address] Transitional Reading Room B-TYPE NATRIURETIC FACTOR (BNP)2020-06-01 19:50:00 Test Item Value Reference Range Interpretation Comments B-TYPE NATRIURETIC PEPTIDE 2096 pg/mL 0-100 H ([facility]) (test code = 700) Commercial Marketing Specialist ID - ADMINTROPONIN [id number] 19:50:00 Test Item Value Reference Range Interpretation Comments [facility] (test code = 0.02 ng/mL 0.00-0.03 397) Troponin I (TnI) levels must be interpreted in the context of the presenting symptoms and the clinical findings. Elevated TnI levels indicate myocardial damage, but are not specific for ischemic heart disease. Elevated TnI levels are seen in patients with other cardiac conditions (including myocarditis and congestive heart failure), and slight TnI elevations occur in patients with other conditions, including sepsis, renal failure, acidosis, acute neurological disease, and persistent tachyarrhythmia.Commercial Marketing Specialist ID - ADMINBASIC METABOLIC PANEL 2020-06-01 19:46:00 Test Item Value Reference Range Interpretation Comments SODIUM (BEAKER) (test 138 meq/L 136-145 code = 381) POTASSIUM (BEAKER) 4.1 meq/L 3.5-5.1 Specimen slightly (test code = 379) hemolyzed CHLORIDE (BEAKER) 107 meq/L 98-107 (test code = 382) CO2 (BEAKER) (test 20 meq/L 22-29 L code = 355) BLOOD UREA NITROGEN 16 mg/dL 7-21 (BEAKER) (test code = 354) CREATININE (BEAKER) 1.18 mg/dL 0.57-1.25 Specimen slightly (test code = 358) hemolyzed GLUCOSE RANDOM 117 mg/dL 70-105 H (BEAKER) (test code = 652) CALCIUM (BEAKER) 9.4 mg/dL 8.4-10.2 (test code = 697) EGFR (BEAKER) (test INSUFFIC IENT CLINICAL code = 1092) DATA TO CALCULA TE ESTIMATED GFR. Commercial Marketing Specialist ID - [id number] 19:32:00 Test Item Value Reference Range Interpretation Comments PARTIAL THROMBOPLASTIN TIME 28.3 seconds 22.5-36.0 (BEAKER) (test code = 760) Prior to initiating heparinPT/[id number] 19:32:00 Test Item Value Reference Range Interpretation Comments PROTIME (BEAKER) (test code = 14.6 seconds 11.9-14.2 H 759) INR (BEAKER) (test code = 370) 1.17 <=5.90 PARTIAL THROMBOPLASTIN TIME 28.3 seconds 22.5-36.0 (BEAKER) (test code = 760) Effective 12/10/2018: PT Reference Range ChangeNew: 11.9-14.2 Previous: 11.7- 14.7RECOMMENDED COUMADIN/WARFARIN INR THERAPY RANGESSTANDARD DOSE: 2.0-3.0 Includes: PROPHYLAXIS for venous thrombosis, systemic embolization; TREATMENT for venous thrombosis and/or pulmonary embolus.HIGH RISK: Target INR is 2.5-3.5 for patients wiht mechanical heart valves.Prior to initiating heparinPLATELET [id number] 19:19:00 Test Item Value Reference Range Interpretation Comments PLATELET COUNT (BEAKER) (test 259 K/CU MM 150-450 code = 756) Commercial Marketing Specialist ID - [id number] Knee Right Wo ContMRI Knee Right Wo Cont
[2022-05-22 13:53] LABS: Absolute Lymphocytes (CBC) 1.3 K/uL (0.7-4.9); Lymphocytes % 20.2 % (15.3-44.8); MCV 88.3 fL (80-100); MPV 6.9 fL (7.6-11.3); Protime INR 1.12; RBC Red Blood Cell Count 3.85 M/uL (4.33-5.43)
--- NOTE | 2022-05-22 14:34 | RAD REPORT ---
EXAM DESCRIPTION: RAD - Chest Single View - 05/22/2022 2:24 pm CLINICAL HISTORY: CHEST PAIN Chest pain. COMPARISON: Chest Pa And Lat (2 Views) dated 03/09/2021; Chest Single View dated 04/24/2020 FINDINGS: Portable technique limits examination quality. The lungs are grossly clear. Moderate left pleural effusion. The heart is normal in size. No displace d fractures.Sternotomy wires. IMPRESSION: Moderate left pleural effusion.
[2022-05-22 14:44] LABS: Magnesium 2.4 mg/dL (1.8-2.4); Troponin High Sensitivity 15.2 pg/mL (<58.9)
--- NOTE | 2022-05-22 15:08 | RAD REPORT ---
EXAM DESCRIPTION: CT - Chest For Pe Angio - 05/22/2022 2:59 pm CLINICAL HISTORY: Chest pain. chest pain, 4 weeks s/p mitral valve repair and pericarditis COMPARISON: Chest For Pe Angio dated 04/24/2020 TECHNIQUE: CT angiogram of the pulmonary arteries was performed with MIP. All CT scans are performed using dose optimization technique as appropriate and may include automated exposure control or mA/KV adjustment according to patient size. FINDINGS: No evidence of pulmonary thromboembolism. No acute aortic finding demonstrated. The right lung appears well aerated and clear. Mild atelectasis is present at the left lung base. Small to moderate left pleural effusion noted. Trace pericardial fluid. Recent sternotomy. IMPRESSION: No evidence of pulmonary thromboembolism. Small to moderate left pleural effusion with atelectasis in the left lung base.
--- NOTE | 2022-05-22 15:57 | EDPHYS ---
Physician Documentation [facility] Name: Mani Emerson Age: 61 yrs Sex: Male : 1960 Arrival Date: 05/22/2022 Time: 13:11 Bed 3 Private MD: Wong Lan S ED Physician Armand Nixon HPI: 05/22 15:47 This 61 yrs old Male presents to ER via Ambulatory with complaints of Chest Pain. rn 15:47 The patient or guardian reports chest pain that is located primarily in the anterior rn chest wall. 15:47 The pain does not radiate. Associated signs and symptoms: Pertinent positives: None. rn Pertinent negatives: abdominal pain, cough, diaphoresis, lower extremity swelling, palpitations, shortness of breath, syncope, vomiting. The chest pain is described as sharp, stabbing. Duration: The patient or guardian reports multiple episodes, last seconds. Modifying factors: The symptoms are alleviated by nothing. the symptoms are aggravated by deep breath. Severity of pain: At its worst the pain was mild in the emergency department the pain is unchanged. The patient has not experienced similar symptoms in the past. The patient has been recently seen by a physician:. Pt reports mitral valve repair 4 weeks ago, left hospital with "fluid in left lung and steroids for inflammation of heart". Was doing better, recently noticed anterior chest pain, sharp/stabbing, lasts for seconds, is using incentive spirometer. NO hx of dvt/PE. No trauma. No hemoptysis. . Historical: - Allergies: 13:39 No Known Allergies; aa5 - PMHx: 13:35 Hernia; Mitral Valve Regurgitation; iw 13:39 Hypertensive disorder; aa5 - PSHx: 13:39 Hernia repair; Sarath knees; Sarath shoulders; Mitral Valve repair in 2019 and April 2022; aa5 13:41 Tonsillectomy; L hand; aa5 - Immunization history:: Adult Immunizations. - Social history:: Smoking status: . - Family history:: not pertinent. - Hospitalizations: : Patient was recently seen at. ROS: 15:47 Constitutional: Negative for fever, chills, and weight loss, Eyes: Negative for injury, rn pain, redness, and discharge, Neck: Negative for injury, pain, and swelling, Cardiovascular: + chest pain Respiratory: Negative for shortness of breath, cough, wheezing Abdomen/GI: Negative for abdominal pain, nausea, vomiting, diarrhea, and constipation, Back: Negative for injury and pain, MS/Extremity: Negative for injury and deformity, Skin: Negative for injury, rash, and discoloration, Neuro: Negative for headache, weakness, numbness, tingling, and seizure. Exam: 13:51 ECG was reviewed by the Attending Physician. rn 15:47 Constitutional: This is a well developed, well nourished patient who is awake, alert, rn and in no acute distress. Head/Face: Normocephalic, atraumatic. Cardiovascular: Regular rate and rhythm. No pulse deficits. Respiratory: No increased work of breathing, no retractions or nasal flaring. Abdomen/GI: Soft, non-tender Skin: Warm, dry MS/ Extremity: Pulses equal, no cyanosis. Neurovascular intact. Full, normal range of motion. Equal circumference. Neuro: Awake and alert, GCS 15 Vital Signs: 13:33 BP 172 / 96; Pulse 82; Resp 16; Pulse Ox 99% on R/A; iw 13:46 Temp 98.1(TE); Weight 90.72 kg; Height 5 ft. 9 in. (175.26 cm) (R); Pain 2/10; tw2 14:51 BP 148 / 83; Pulse 74; Resp 17; Pulse Ox 99% on R/A; tw2 16:00 BP 148 / 80; Pulse 76; Resp 16 S; Pulse Ox 99% on R/A; aa5 13:46 Body Mass Index 29.54 (90.72 kg, 175.26 cm) tw2 MDM: 13:26 Patient medically screened. rn 15:47 Differential diagnosis: acute myocardial infarction, acute pericarditis, chest wall rn pain, costochondritis, pleurisy, pneumonia, pneumothorax, pulmonary embolus, pleurisy, pleural effusion. Data reviewed: vital signs, nurses notes, lab test result(s), EKG, radiologic studies, CT scan, and as a result, I will discharge patient. Counseling: I had a detailed discussion with the patient and/or guardian regarding: the historical points, exam findings, and any diagnostic results supporting the discharge/admit diagnosis, lab results, radiology results, the need for outpatient follow up, to return to the emergency department if symptoms worsen or persist or if there are any questions or concerns that arise at home. Response to treatment: the patient's symptoms have mildly improved after treatment, and as a result, I will discharge patient. Special discussion: Based on the patient's history, exam, and Dx evaluation, there is no indication for emergent intervention or inpatient Tx. It is understood by the patient/guardian that if the Sx's persist or worsen they need to return immediately for re-evaluation. I discussed with the patient/guardian in detail that at this point there is no indication for admission to the hospital. It is understood, however, that if the symptoms persist or worsen the patient needs to return immediately for re-evaluation. Based on the history and exam findings, there is no indication for further emergent testing or inpatient evaluation. I discussed with the patient/guardian the need to see the vapor coater for further evaluation of the symptoms. I discussed with the patient/guardian the need to see the primary care provider for further evaluation of the symptoms. ED course: No acute findings on labs/ecg/imaging. + known left pleural effusion which is expected after open surgery. Is using incentive spirometer, PE study neg for PE. Will dc home with pcp and cardiology f/u. . 05/22 13:37 Order name: Basic Metabolic Panel; Complete Time: 15: 05/22 13:37 Order name: CBC with Diff; Complete Time: 15: 05/22 13:37 Order name: NT PRO-BNP; Complete Time: 15: 05/22 13:37 Order name: PT-INR; Complete Time: 15: 05/22 13:37 Order name: Troponin HS; Complete Time: 15: 05/22 13:37 Order name: Magnesium; Complete Time: 15: rn 05/22 13:37 Order name: XRAY Chest (1 view); Complete Time: 15: rn 05/22 13:37 Order name: EKG; Complete Time: 13:38 rn 05/22 13:37 Order name: Cardiac monitoring; Complete Time: 13:39 rn 05/22 13:37 Order name: EKG - Nurse/Tech; Complete Time: 13:39 rn 05/22 13:37 Order name: IV Saline Lock; Complete Time: 13:39 rn 05/22 13:37 Order name: Labs collected and sent; Complete Time: 13:39 rn 05/22 13:37 Order name: O2 Per Protocol; Complete Time: 13:39 rn 05/22 13:37 Order name: CT Chest For PE Angio; Complete Time: 15:32 rn 05/22 13:37 Order name: O2 Sat Monitoring; Complete Time: 13:39 rn EC:51 Rate is 82 beats/min. Rhythm is regular. QRS Effort is Normal. NM interval is normal. QRS rn interval is normal. QT interval is normal. No Q waves. T waves are Inverted. No ST changes noted. Clinical impression: NSR w/ Non-specific ST/T Changes. Interpreted by me. Reviewed by me. 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
--- NOTE | 2022-05-22 15:57 | ER ---
Nurse's Notes [facility] Name: Mani Emerson Age: 61 yrs Sex: Male : 1960 Arrival Date: 05/22/2022 Time: 13:11 Bed 3 Private MD: Wong Lan S Diagnosis: Chest pain, unspecified;Pleural effusion, not elsewhere classified Presentation: 05/22 13:33 Chief complaint: Patient states: my hands have been going numb and I've been having iw intermittent chest pains that last a few seconds , had recent mitral valve replacement a month ago. Coronavirus screen: At this time, the client does not indicate any symptoms associated with coronavirus-19. Ebola Screen: Patient negative for fever greater than or equal to 101.5 degrees Fahrenheit, and additional compatible Ebola Virus Disease symptoms Patient denies exposure to infectious person. Patient denies travel to an Ebola-affected area in the 21 days before illness onset. No symptoms or risks identified at this time. Initial Sepsis Screen: Does the patient meet any 2 criteria? No. Patient's initial sepsis screen is negative. Does the patient have a suspected source of infection? No. Patient's initial sepsis screen is negative. Risk Assessment: Do you want to hurt yourself or someone else? Patient reports no desire to harm self or others. Onset of symptoms was May 22, 2022. 13:33 Method Of Arrival: Ambulatory iw 13:33 Acuity: MARLEN 3 iw Historical: - Allergies: 13:39 No Known Allergies; aa5 - PMHx: 13:35 Hernia; Mitral Valve Regurgitation; iw 13:39 Hypertensive disorder; aa5 - PSHx: 13:39 Hernia repair; Sarath knees; Sarath shoulders; Mitral Valve repair in 2019 and April 2022; aa5 13:41 Tonsillectomy; L hand; aa5 - Immunization history:: Adult Immunizations. - Social history:: Smoking status: . - Family history:: not pertinent. - Hospitalizations: : Patient was recently seen at. Screenin:51 Abuse screen: Denies threats or abuse. Nutritional screening: No deficits noted. tw2 Tuberculosis screening: No symptoms or risk factors identified. Fall Risk None identified. Assessment: 13:30 General: Appears in no apparent distress. well groomed, Behavior is calm, cooperative, tw2 appropriate for age. Pain: Complains of pain in chest and numbness in arms Pain does not radiate. Pain began 1 day ago. Neuro: Level of Consciousness is awake, alert, obeys commands, Oriented to person, place, time, situation. Cardiovascular: Reports chest pain, Patient's skin is warm and dry. Respiratory: Airway is patent Respiratory effort is even, unlabored, Respiratory pattern is regular, symmetrical. Musculoskeletal: Range of motion: intact in all extremities. 14:51 Reassessment: Patient appears in no apparent distress at this time. No changes from tw2 previously documented assessment. Patient and/or family updated on plan of care and expected duration. Pain level reassessed. Patient is alert, oriented x 3, equal unlabored respirations, skin warm/dry/pink. 16:18 Reassessment: Patient is alert, oriented x 3, equal unlabored respirations, skin aa5 warm/dry/pink. Vital Signs: 13:33 BP 172 / 96; Pulse 82; Resp 16; Pulse Ox 99% on R/A; iw 13:46 Temp 98.1(TE); Weight 90.72 kg; Height 5 ft. 9 in. (175.26 cm) (R); Pain 2/10; tw2 14:51 BP 148 / 83; Pulse 74; Resp 17; Pulse Ox 99% on R/A; tw2 16:00 BP 148 / 80; Pulse 76; Resp 16 S; Pulse Ox 99% on R/A; aa5 13:46 Body Mass Index 29.54 (90.72 kg, 175.26 cm) tw2 ED Course: 13:11 Patient arrived in ED. as 13:11 Wong Lan MD is Private Physician. as 13:26 Armand Nixon MD is Attending Physician. rn 13:28 Bed in low position. Call light in reach. Side rails up X 1. Adult w/ patient. Cardiac tw2 monitor on. Pulse ox on. NIBP on. Warm blanket given. 13:30 Inserted saline lock: 20 gauge in right antecubital area, using aseptic technique. tw2 Blood collected. 13:34 Triage completed. iw 13:34 Arm band placed on. iw 13:41 Eloisa Pruitt RN is Primary Nurse. tw2 13:51 Patient maintains SpO2 saturation greater than 95% on room air. tw2 14:26 XRAY Chest (1 view) In Process Unspecified. EDMS 15:00 CT Chest For PE Angio In Process Unspecified. EDMS 16:18 No provider procedures requiring assistance completed. IV discontinued, intact, aa5 bleeding controlled, No redness/swelling at site. Pressure dressing applied. Administered Medications: No medications were administered Medication: 13:53 VIS not applicable for this client. tw2 Outcome: 15:57 Discharge ordered by . rn 16:18 Discharged to home ambulatory, with significant other. aa5 16:18 Condition: stable 16:18 Discharge instructions given to patient, significant other, Instructed on discharge instructions, follow up and referral plans. Demonstrated understanding of instructions, follow-up care. 16:23 Patient left the ED. aa5 Signatures: Dispatcher [employer] Alissa Lowery Irene, RN RN Armand Sidhu MD MD rn Calderon, Audri, RN RN aa5 Eloisa Pruitt RN RN tw2
--- NOTE | 2022-05-24 06:35 | EKG ---
Test Date: 2022-05-22 Test Time: 13:33:00 Trolley Coach Driver: RONALD MEASUREMENT RESULTS: Intervals: Rate: 81 IL: 150 QRSD: 84 QT: 384 QTc: 446 [place]: P: 42 IL: 150 QRS: 48 T: 236 INTERPRETIVE STATEMENTS: Normal sinus rhythm Possible Inferior infarct, age undetermined Abnormal ECG Compared to ECG 03/23/2022 12:17:51 Left ventricular hypertrophy no longer present Myocardial infarct finding still present Electronically Signed On 05-24-22 06:30:51 SPECIAL EDUCATION ASSOCIATE by Wong Lan
== END 2022-05-22 16:23 | disposition home or self-care (01) ==
LOC: ER 13:10
DX: J90 Pleural effusion, not elsewhere classified (principal); I10 Essential (primary) hypertension
CPT/HCPCS: 93005; 85025; 80048; 36415; 83735; 85610; 84484; 83880; 71275; 71045; 99285; Q9967

== ENCOUNTER 2023-03-19 07:18 | Emergency (ER) | payer OTHER ==
--- OUTSIDE RECORDS SUMMARY | 2023-03-19 07:31 | XMS REPORT | Continuity of Care Document ---
:1960 Author Organization [facility] t Address [address] [place] [address] [address] [place] [address] Care Team Providers Name Role Phone Gudelia Barrientos NP Primary Care Physician Gudelia Barrientos Attending Clinician Unavailable Bibiana Oliva Attending Clinician Travis Merritt MD Attending Clinician Amado Moreau MD Attending Clinician Oscar Pretty MD Attending Clinician Michelle Sam Attending Clinician [phone] ERROL BRIGGS Attending Clinician Unavailable SHANIKA DUMONT Attending Clinician Unavailable STERLING CAMPBELL Attending Clinician Unavailable TRAVIS MERRITT Admitting Clinician Unavailable NADIA ABDUL Admitting Clinician Unavailable Payers Payer Name Policy Type Policy Number Effective Date Expiration Date S pebbles AETNA 53 [id number] 2000 [facility] 00:00:00 - [facility] AETNA C1 [id number] [facility] AETNA HMO POS [id number] 2018 QPOS 00:00:00 Problems Condition Condition Condition Status Onset Resolution Last Treating Co mments Source Name Details Category Date Date Treatment Clinician Date Non-rheuma Non-rheuma Disease Active 2021-07 M ethodi tic mitral tic mitral 0-12 [facility] regurgitat 00:00: Ho spita ion ion 00 l Atrial Atrial Disease Recurre 2019-[address] [facility] fibrillati fibrillati nce 08-01 Candelaria kes on on 00:00: Medical 00 Center s/p s/p Disease Active 2019-[address] [facility] MVRepair MVRepair 08-01 Janet 06/06 ( 06/06 ( 00:00: Me dical Letsou) Letsou) 00 Center Cardiogeni Cardiogeni Disease Recurre [facility] St c shock c shock [facility] Hypovolemi Hypovolemi Disease Recurre [facility] St c shock c shock [facility] Acute Acute Disease Active [facility] respirator respirator Candelaria kes y y Medical insufficie insufficie Ce nter ncy azy Acute Acute Disease Active [facility] blood loss blood loss Candelaria kes anemia anemia [facility] Metabolic Metabolic Disease Active [facility] acidosis acidosis [facility] [id number] Arthritis Problem Co mmon [id number] of knee, Spirit right - [facility] Allergies, Adverse Reactions, Alerts Allergy Allergy Status Severity Reaction(s) Onset Inactive Treating Comm ents Source Name Type Date Date Clinician NO KNOWN Allergy Active [facility] ALLERGIE [facility] Family History Family Member Diagnosis Comments Start Date Stop Date Source Natural mother Alzheimer's disease C [facility] Natural mother Parkinsonism [facility] Natural mother Rectal cancer [facility] Natural mother No Known Problems Met [facility] Natural father No Known Problems Met [facility] Social History Social Habit Start Date Stop Date Quantity Comments Source History SDOH [facility] Alcohol Comment Medical C enter Gender identity [facility] Medical Bin ter History of Tobacco [facility] - Use [facility] History of Social 2022-05-01 2022-05-[address] function 00:00:00 00:00:00 Hospital Alcohol intake 2020-07-12 2020-07-[address] [facility] S barb [facility] 00[facility]:00 00:00:00 of alcohol [facility] (finding) Tobacco Comment 2020-06-02 2020-06-[address] [facility] 00:00:00 00:00:00 Medical Center History [facility] 2020-06-02 2020-06-[address] [facility] Alcohol Frequency 00:00:00 00:00:00 Medical Center History [facility] 2020-06-02 2020-06-[address] [facility] Alcohol Std Drinks 00:00:00 00:00:00 [facility] Tobacco use and 2020-06-01 2020-06-[address] [facility] exposure 00:00:00 00:00:00 Medical Center Sex Ass[birth year] At [birth year] AIDA Escamillas 00:00:00 00:00:00 Medical Center Smoking Status Start Date Stop Date Source Never Smoker [facility] Medications Ordered Filled Start Stop Current Ordering Indication Dosage Frequency Signature Comments Components Source Medication Medication Date Date Medication? Clinician (SIG) Name Name colchicine 2021-07- No .6mg QD Take 1 [facility] arti 0.6 mg 0-19 -[address] tablet 00:00: 05:59 (0.6 mg Hospita 00 :00 total) by l mouth daily for 30 days. colchicine 2021-07- No .6mg QD Take 1 Meth arti 0.6 mg 0-19 -[address] tablet 00:00: 05:59 (0.6 mg Hospita 00 :00 total) by l mouth daily for 30 days. metoprolol 2021-07 No 25mg QD Take 1 [facility] succinate 0-18 10-18 tablet (25 st XL 14:46: 00:00 mg total) Hospita (TOPROL-XL) 38 :00 by mouth l 25 mg 24 hr every tablet morning. metoprolol 2021-07 No 25mg QD Take 1 Meth arti [...] 34 needed for l nasal rhinitis. inhaler aspirin 2021-07 Yes 81mg QD Take 1 [...] needed for l nasal rhinitis. inhaler metoprolol 2021-07 25mg Q.5D Take 1 [facility] tartrate 0-18 11-18 tablet (25 st (LOPRESSOR) 00:00: 05:59 mg total) Hospita 25 mg 00 :00 by mouth 2 l tablet (two) times a day for 30 days. metoprolol 2021-07 No 25mg Q.5D Take 1 [facility] tartrate 0-18 11-18 tablet (25 st (LOPRESSOR) 00:00: 05:59 mg total) [facility]osp[facility] 25 mg 00 :00 by mouth 2 l tablet (two) times a day for 30 days. furosemide 2021-07 No 40mg QD Take 1 [facility] arti (Lasix) 40 0-18 10-26 tablet (40 st mg tablet 00:00: 04:59 mg total) Ho spita 00 :00 by mouth l daily for 7 days. potassium 2021-07 No 20meq QD Take 1 [facility] arti chloride 0-18 10-26 tablet (20 st (K-DUR) 20 00:00: 04:59 mEq total) Hospita MEQ CR 00 :00 by mouth l tablet daily for 7 days. While on lasix acetaminoph 2021-07 1{tbl} Q6H Take 1 Methodi en-codeine 0-18 10-[address] (TYLENOL 00:00: 04:59 mouth [facility]osp[facility] WITH 00 :00 every 6 l CODEINE #3) (six) 300-30 mg hours as per tablet needed for moderate pain for up to 7 days .acute pain. furosemide 2021-07 40mg QD Take 1 Meth arti (Lasix) 40 0-18 10-26 tablet (40 st mg tablet 00:00: 04:59 mg total) Ho spita 00 :00 by mouth l daily for 7 days. potassium 2021-07 20meq QD Take 1 Meth arti chloride 0-18 10-26 tablet (20 st (K-DUR) 20 00:00: 04:59 mEq total) [facility]ospita MEQ CR 00 :00 by mouth l tablet daily for 7 days. While on lasix acetaminoph 2021-07 1{tbl} Q6H Take 1 Methodi en-codeine 0-18 10-[address] (TYLENOL 00:00: 04:59 mouth [facility]osp[facility] WITH 00 :00 every 6 l CODEINE #3) (six) 300-30 mg hours as per tablet needed for moderate pain for up to 7 days .acute pain. methylPREDN 2021-07- No follow Met hodi ISolone 0-18 10-[address] (Medrol, 00:00: 04:59 directions Ho spita Brayden,) 4 mg 00 :00 l tablet methylPREDN 2021-07- No follow Met hodi ISolone 0-18 -[address] (Medrol, 00:00: 04:59 directions Ho spita Brayden,) 4 mg 00 :00 l tablet acetaminoph 2021-07 No 1{tbl} Q6H Take 1 Methodi en-codeine 0-18 10-[address] (TYLENOL 00:00: 00:00 mouth [facility]ospita WITH 00 :00 every 6 l CODEINE #3) (six) 300-30 mg hours as per tablet needed for moderate pain for up to 7 days .acute pain. acetaminoph 2021-07 1{tbl} Q6H Take 1 Methodi en-codeine 0-18 10-[address] (TYLENOL 00:00: 00:00 mouth [facility]ospita WITH 00 :00 every 6 l CODEINE #3) (six) 300-30 mg hours as per tablet needed for moderate pain for up to 7 days .acute pain. Euflexxa Euflexxa 2020-07 No 20mg Commo n 2-09 [facility] 00:00: - [facility] Euflexxa Euflexxa 2020-07 No 2mL Commo n 2-02 [facility] 00:00: - [facility] Euflexxa Euflexxa 2020-07 No 20mg Commo n 1-24 [facility] 00:00: - [facility] HYDROcodone HYDROcodone 2020- No 1{table HYDROcodon -Acetaminop -Acetaminop 03-13 t_as_ne e-Acetamin hen 5-325 hen 5-325 00:00: 00:00 eded} ophen MG MG 00 :00 5-325 MG HYDROcodone HYDROcodone 2020- No 1{table HYDROcodon -Acetaminop -Acetaminop 03-13 t_as_ne e-Acetamin hen 5-325 hen 5-325 00:00: 00:00 eded} ophen MG MG 00 :00 5-325 MG HYDROcodone HYDROcodone 2020-0 2021- No 1{table HYDROcodon -Acetaminop -Acetaminop 03-13 t_as_ne e-Acetamin hen 5-325 hen 5-325 00:00: 00:00 eded} ophen MG MG 00 :00 5-325 MG HYDROcodone HYDROcodone 2020-0 2021- No 1{table HYDROcodon -Acetaminop -Acetaminop 03-13 t_as_ne e-Acetamin hen 5-325 hen 5-325 00:00: 00:00 eded} ophen MG MG 00 :00 5-325 MG Indomethaci Indomethaci 2020-0 2021- No 1{capsu QD Indomethac n ER 75 MG n ER 75 MG 02-17 le_with in ER 75 00:00: 00:00 _food} MG 00 :00 Indomethaci Indomethaci 2020-0 2021- No 1{capsu QD Indomethac n ER 75 MG n ER 75 MG 02-17 le_with in ER 75 00:00: 00:00 _food} MG 00 :00 methylPREDN methylPREDN 2021-0 No methylPRED ISolone 4 [...] 2021-0 No methylPRED ISolone 4 ISolone 4 7-12 NISolone 4 MG MG 00:00: MG 00 methylPREDN methylPREDN 2021-0 No methylPRED ISolone 4 ISolone 4 7-12 NISolone 4 MG MG 00:00: MG 00 methylPREDN methylPREDN 2021-0 No methylPRED ISolone 4 ISolone 4 7-12 NISolone 4 MG MG 00:00: MG 00 methylPREDN methylPREDN 2021-0 No methylPRED ISolone 4 ISolone 4 7-12 NISolone 4 MG MG 00:00: MG 00 methylPREDN methylPREDN 2021-0 No methylPRED ISolone 4 ISolone 4 7-12 NISolone 4 MG MG 00:00: MG 00 methylPREDN methylPREDN 2021-0 No methylPRED ISolone 4 ISolone 4 7-12 NISolone 4 MG MG 00:00: MG 00 methylPREDN methylPREDN 2021-0 No methylPRED ISolone 4 ISolone 4 7-12 NISolone 4 MG MG 00:00: MG 00 methylPREDN methylPREDN 2021-0 No methylPRED ISolone 4 ISolone 4 7-12 NISolone 4 MG MG 00:00: MG 00 methylPREDN methylPREDN 2021-0 No methylPRED ISolone 4 ISolone 4 7-12 NISolone 4 MG MG 00:00: MG 00 methylPREDN methylPREDN 2021-0 No methylPRED ISolone 4 ISolone 4 7-12 NISolone 4 MG MG 00:00: MG 00 methylPREDN methylPREDN 2021-0 No methylPRED ISolone 4 ISolone 4 7-12 NISolone 4 MG MG 00:00: MG 00 methylPREDN methylPREDN 2021-0 No methylPRED ISolone 4 ISolone 4 7-12 NISolone 4 MG MG 00:00: MG 00 Bupivicaine Bupivicaine 1-0 No 2.5mg [facility] Chester Chester 6-29 [facility] 00:00: - [facility] Kenalog Kenalog 1-0 No 40mg Common (Triamcinol (Triamcinol 6-29 S pirit one) one) 00:00: - [facility] aspirin 81 2020-1 2021- No 81mg QD Take [address] MG EC 08-17- tablet (81 [facility] tablet 00:00: 23:59 mg total) Medic al 00 :00 by mouth Center daily. lisinopriL 2019-07- No 2.5mg QD Take [address] [...] Status Commen ts Source Name Name Bupivicaine Chester Bupivicaine Chester 2021-01-10 Completed [facility] - 15:47:00 [facility] Marc Malavealog 2021-01-10 Completed [facility] - (Triamcinolone) (Triamcinolone) 15:47:00 [facility] Bupivicaine Chester Bupivicaine Chester 2021-01-10 Completed [facility] - 15:47:00 [facility] Kenalog Kenalog 2021-01-10 Completed [facility] - (Triamcinolone) (Triamcinolone) 15:47:00 [facility] Bupivicaine Chester Bupivicaine Chester 2021-01-10 Completed [facility] - 15:47:00 [facility] Kenparminder Tran 2021-01-10 Completed [facility] - (Triamcinolone) (Triamcinolone) 15:47:00 [facility] Bupivicaine Chester Bupivicaine Chester 2021-01-10 Completed [facility] - 15:47:00 [facility] Kenparminder Kenalog 2021-01-10 Completed [facility] - (Triamcinolone) (Triamcinolone) 15:47:00 [facility] Bupivicaine Chester Bupivicaine Chester 2021-01-10 Completed [facility] - 15:47:00 [facility] Kenparminder Kenparminder 2021-01-10 Completed [facility] - (Triamcinolone) (Triamcinolone) 15:47:00 [facility] Bupivicaine Chester Bupivicaine Chester 2021-01-10 Completed [facility] - 15:47:00 [facility] Kenalog Kenalog 2021-01-10 Completed [facility] - (Triamcinolone) (Triamcinolone) 15:47:00 [facility] Bupivicaine Chester Bupivicaine Chester 2021-01-10 Completed [facility] - 15:47:00 [facility] Kenparminder Kenalog 2021-01-10 Completed [facility] - (Triamcinolone) (Triamcinolone) 15:47:00 [facility] Bupivicaine Chester Bupivicaine Chester 2021-01-10 Completed [facility] - 15:47:00 [facility] Kenalog Kenalog 2021-01-10 Completed [facility] - (Triamcinolone) (Triamcinolone) 15:47:00 [facility] Bupivicaine Chester Bupivicaine Chester 2021-01-10 Completed [facility] - 15:47:00 [facility] Kenalog Kenalog 2021-01-10 Completed [facility] - (Triamcinolone) (Triamcinolone) 15:47:00 [facility] Bupivicaine Chester Bupivicaine Chester 2021-01-10 Completed [facility] - 15:47:00 [facility] Kenalog Kenalog 2021-01-10 Completed [facility] - (Triamcinolone) (Triamcinolone) 15:47:00 [facility] Bupivicaine Chester Bupivicaine Chester 2021-01-10 Completed [facility] - 15:47:00 [facility] Kenalog Kenalog 2021-01-10 Completed [facility] - (Triamcinolone) (Triamcinolone) 15:47:00 [facility] Bupivicaine Chester Bupivicaine Chester 2021-01-10 Completed [facility] - 15:47:00 [facility] Kenalog Kenalog 2021-01-10 Completed [facility] - (Triamcinolone) (Triamcinolone) 15:47:00 [facility] Bupivicaine Chester Bupivicaine Chester 2021-01-10 Completed [facility] - 15:47:00 [facility] Kenalog Kenalog 2021-01-10 Completed [facility] - (Triamcinolone) (Triamcinolone) 15:47:00 [facility] Bupivicaine Chester Bupivicaine Chester 2021-01-10 Completed [facility] - 15:47:00 [facility] Kenalog Kenalog 2021-01-10 Completed [facility] - (Triamcinolone) (Triamcinolone) 15:47:00 [facility] Bupivicaine Chester Bupivicaine Chester 2021-01-10 Completed [facility] - 15:47:00 [facility] Kenalog Kenalog 2021-01-10 Completed [facility] - (Triamcinolone) (Triamcinolone) 15:47:00 [facility] Bupivicaine Chester Bupivicaine Chester 2021-01-10 Completed [facility] - 15:47:00 [facility] Kenalog Kenalog 2021-01-10 Completed [facility] - (Triamcinolone) (Triamcinolone) 15:47:00 [place] [id number] 2020-10-11 Completed [facility] MRNA VACCINATION 00:00:00 [place] [id number] 2020-10-11 Completed [facility] MRNA VACCINATION 00:00:00 [place] [id number] 2020-09-15 Completed [facility] MRNA VACCINATION 00:00:00 [place] [id number] 2020-09-15 Completed [facility] VACCINATION 00:00:00 Hospital Vital Signs Vital Name Observation Time Observation Value Comments Source height 2021-06-22 13:30:00 69 [in_i] [facility] weight 2021-06-22 13:30:00 213 [lb_av] [facility] temperature 2021-06-22 13:30:00 98.2 [degF] [facility] bmi 2021-06-22 13:30:00 31.45 kg/m2 [facility] blood pressure 2021-06-22 13:30:00 132 mm[Hg] [facility] - systolic [facility] blood pressure 2021-06-22 13:30:00 84 mm[Hg] [facility] - diastolic [facility] height 2021-06-15 08:15:00 69 [in_i] [facility] weight 2021-06-15 08:15:00 213 [lb_av] [facility] temperature 2021-06-15 08:15:00 97.6 [degF] [facility] bmi 2021-06-15 08:15:00 31.45 kg/m2 [facility] blood pressure 2021-06-15 08:15:00 118 mm[Hg] [facility] - systolic [facility] blood pressure 2021-06-15 08:15:00 74 mm[Hg] [facility] - diastolic [facility] height 2021-06-07 08:00:00 69 [in_i] [facility] weight 2021-06-07 08:00:00 213 [lb_av] [facility] temperature 2021-06-07 08:00:00 97.9 [degF] [facility] bmi 2021-06-07 08:00:00 31.45 kg/m2 [facility] blood pressure 2021-06-07 08:00:00 124 mm[Hg] [facility] - systolic [facility] blood pressure 2021-06-07 08:00:00 82 mm[Hg] [facility] - diastolic [facility] height 2021-05-01 08:30:00 69 [in_i] [facility] weight 2021-05-01 08:30:00 213.4 [lb_av] [facility] bmi 2021-05-01 08:30:00 31.51 kg/m2 [facility] blood pressure 2021-05-01 08:30:00 136 mm[Hg] [facility] - systolic [facility] blood pressure 2021-05-01 08:30:00 84 mm[Hg] [facility] - diastolic [facility] height 2021-03-30 09:15:00 69 [in_i] [facility] weight 2021-03-30 09:15:00 211 [lb_av] [facility] temperature 2021-03-30 09:15:00 98.2 [degF] [facility] bmi 2021-03-30 09:15:00 31.16 kg/m2 [facility] blood pressure 2021-03-30 09:15:00 112 mm[Hg] [facility] - systolic [facility] blood pressure 2021-03-30 09:15:00 78 mm[Hg] [facility] - diastolic [facility] height 2021-03-21 08:30:00 69 [in_i] [facility] weight 2021-03-21 08:30:00 211 [lb_av] [facility] temperature 2021-03-21 08:30:00 97.7 [degF] [facility] bmi 2021-03-21 08:30:00 31.16 kg/m2 [facility] blood pressure 2021-03-21 08:30:00 144 mm[Hg] [facility] - systolic [facility] blood pressure 2021-03-21 08:30:00 90 mm[Hg] [facility] - diastolic [facility] height 2021-03-03 08:30:00 69 [in_i] [facility] weight 2021-03-03 08:30:00 211 [lb_av] [facility] bmi 2021-03-03 08:30:00 31.16 kg/m2 [facility] blood pressure 2021-03-03 08:30:00 156 mm[Hg] [facility] - systolic [facility] blood pressure 2021-03-03 08:30:00 102 mm[Hg] [facility] - diastolic [facility] height 2021-02-21 08:00:00 69 [in_i] [facility] weight 2021-02-21 08:00:00 211 [lb_av] [facility] bmi 2021-02-21 08:00:00 31.16 kg/m2 [facility] blood pressure 2021-02-21 08:00:00 144 mm[Hg] [facility] - systolic [facility] blood pressure 2021-02-21 08:00:00 99 mm[Hg] [facility] - diastolic [facility] height 2021-02-06 08:00:00 69 [in_i] [facility] weight 2021-02-06 08:00:00 211.3 [lb_av] [facility] temperature 2021-02-06 08:00:00 97.3 [degF] [facility] bmi 2021-02-06 08:00:00 31.2 kg/m2 [facility] blood pressure 2021-02-06 08:00:00 122 mm[Hg] [facility] - systolic [facility] blood pressure 2021-02-06 08:00:00 78 mm[Hg] [facility] - diastolic [facility] weight 2021-01-23 08:15:00 209 [lb_av] [facility] bmi 2021-01-23 08:15:00 30.86 kg/m2 [facility] blood pressure 2021-01-23 08:15:00 122 mm[Hg] [facility] - systolic [facility] blood pressure 2021-01-23 08:15:00 82 mm[Hg] [facility] - diastolic [facility] height 2021-01-23 08:15:00 69 [in_i] [facility] height 2021-01-10 15:00:00 69 [in_i] [facility] weight 2021-01-10 15:00:00 209.1 [lb_av] [facility] temperature 2021-01-10 15:00:00 97.7 [degF] [facility] bmi 2021-01-10 15:00:00 30.88 kg/m2 [facility] blood pressure 2021-01-10 15:00:00 162 mm[Hg] [facility] - systolic [facility] blood pressure 2021-01-10 15:00:00 94 mm[Hg] [facility] - diastolic [facility] HEIGHT 2020-07-06 09:24:00 175.3 cm WEIGHT 2020-07-06 [...] kg Systolic blood 2022-05-01 16:58:16 130 mm[Hg] [facility] pressure Diastolic blood 2022-05-01 16:58:16 74 mm[Hg] [facility] pressure Heart rate 2022-05-01 16:58:16 86 /min [facility] Body temperature 2022-05-01 16:58:16 36.22 [facility] Respiratory rate 2022-05-01 16:58:16 18 /min [facility] Oxygen saturation in 2022-05-01 16:58:16 100 /min [facility] Arterial blood by Pulse oximetry Body weight 2022-05-01 10:13:25 94.394 kg [facility] BMI 2022-05-01 10:13:25 30.73 kg/m2 [facility] Body height 2022-04-25 10:56:00 175.3 cm [facility] Procedures Procedure Date / Time Performing Clinician Source Performed POC GLUCOSE 2022-05-01 16:59:00 [facility] POC GLUCOSE 2022-05-01 13:27:00 [facility] CBC HEMOGRAM 2022-05-01 10:55:00 [facility] BASIC METABOLIC PANEL 2022-05-01 10:55:00 [facility] ESTIMATED GFR 2022-05-01 10:55:00 [facility] POC GLUCOSE 2022-05-01 01:35:00 [facility] POC GLUCOSE 2022-04-30 21:38:00 [facility] POC GLUCOSE 2022-04-30 16:52:00 [facility] XR CHEST 1 VW PORTABLE 2022-04-30 16:45:00 [facility] [place] POC GLUCOSE 2022-04-30 12:35:00 [facility] CBC HEMOGRAM 2022-04-30 11:31:00 [facility] BASIC METABOLIC PANEL 2022-04-30 11:31:00 [facility] ESTIMATED GFR 2022-04-30 11:31:00 [facility] POC GLUCOSE 2022-04-30 02:33:00 [facility] CONSULT CARDIAC REHAB 2022-04-30 00:50:47 [facility] PHASE 1 CBC HEMOGRAM 2022-04-29 09:05:00 [facility] BASIC METABOLIC PANEL 2022-04-29 09:05:00 [facility] ESTIMATED GFR 2022-04-29 09:05:00 [facility] XR CHEST 1 VW PORTABLE 2022-04-29 04:25:12 [facility] POC GLUCOSE 2022-04-29 02:09:00 [facility] POC GLUCOSE 2022-04-28 12:21:00 [facility] BASIC METABOLIC PANEL 2022-04-28 09:37:00 [facility] HC COMPLETE BLD COUNT 2022-04-28 09:37:00 [facility] W/AUTO DIFF LACTIC ACID LEVEL 2022-04-28 09:37:00 [facility] MAGNESIUM LEVEL 2022-04-28 09:37:[address] [facility] PHOSPHORUS LEVEL 2022-04-28 09:37:00 [facility] PROTHROMBIN TIME WITH INR 2022-04-28 09:37:00 [facility] PARTIAL THROMBOPLASTIN 2022-04-28 09:37:00 [facility] TIME (PTT) ESTIMATED GFR 2022-04-28 09:37:[address] [facility] ARTERIAL BLOOD GAS 2022-04-28 09:35:00 [facility] IONIZED CALCIUM, ARTERIAL 2022-04-28 09:35:00 [facility] TTE COMPLETE, W CONTRAST, 2022-04-28 07:30:00 [facility] W DOPPLER ([id number]) POC GLUCOSE 2022-04-28 01:59:00 [facility] POC GLUCOSE 2022-04-27 22:34:00 [facility] XR CHEST 2 VW 2022-04-27 20:39:00 [facility] 2022-04-27 17:20:00 [facility] POC GLUCOSE 2022-04-27 13:37:00 [facility] POC GLUCOSE 2022-04-27 11:02:00 [facility] ECG 12-LEAD 2022-04-27 10:09:12 Lucy Carvalhohillarykaren [facility] BASIC METABOLIC PANEL 2022-04-27 09:37:00 [facility] HC COMPLETE BLD COUNT 2022-04-27 09:37:00 [facility] W/AUTO DIFF LACTIC ACID LEVEL 2022-04-27 09:37:00 [facility] MAGNESIUM LEVEL 2022-04-27 09:37:[address] [facility] O2 SATURATION, VENOUS 2022-04-27 09:37:00 [facility] PHOSPHORUS LEVEL 2022-04-27 09:37:00 [facility] PROTHROMBIN TIME WITH INR 2022-04-27 09:37:00 [facility] PARTIAL THROMBOPLASTIN 2022-04-27 09:37:00 [facility] TIME (PTT) ESTIMATED GFR 2022-04-27 09:37:[address] [facility] XR CHEST 1 VW PORTABLE 2022-04-27 07:10:09 Eugenie Gomez [facility] POC GLUCOSE 2022-04-27 02:21:00 [facility] XR CHEST 1 VW PORTABLE 2022-04-27 00:37:11 [facility] 2022-04-26 22:52:00 [facility] POC GLUCOSE 2022-04-26 19:02:00 [facility] LINE/DRAIN REMOVAL 2022-04-26 15:54:31 [facility] XR CHEST 1 VW PORTABLE 2022-04-26 15:10:00 Gheewala, Carlos [facility] POC GLUCOSE 2022-04-26 13:51:00 Travis Merritt [facility] XR CHEST 1 VW PORTABLE 2022-04-26 13:30:00 Kandace Medrano [facility] Darcie ARTERIAL BLOOD GAS 2022-04-26 11:09:00 MedranoKandace [facility] Darcie XR CHEST 1 VW PORTABLE 2022-04-26 09:40:53 Norberto Muhammad [facility] POC GLUCOSE 2022-04-26 09:25:00 Christen [facility] ECG 12-LEAD 2022-04-26 09:11:30 [facility] ACUTE KIDNEY INJURY RISK 2022-04-26 08:46:00 Cj Carvalho [facility] ASSESSMENT, NEPHROCHECK ARTERIAL BLOOD GAS 2022-04-26 07:39:00 Sabina [facility] BASIC METABOLIC PANEL 2022-04-26 07:36:00 [facility] COMPLETE BLD COUNT 2022-04-26 07:36:00 [facility] W/AUTO DIFF IONIZED CALCIUM 2022-04-26 07:36:[address] [facility] LACTIC ACID LEVEL 2022-04-26 07:36:00 [facility] MAGNESIUM LEVEL 2022-04-26 07:36:[address] [facility] O2 SATURATION, VENOUS 2022-04-26 07:36:00 Sabina [facility] PROTHROMBIN TIME WITH INR 2022-04-26 07:36:00 Alvino [facility] PARTIAL THROMBOPLASTIN 2022-04-26 07:36:00 [facility] TIME (PTT) ESTIMATED GFR 2022-04-26 07:36:[address] [facility] PHOSPHORUS LEVEL 2022-04-26 07:36:00 [facility] 2022-04-26 05:20:00 Christen [facility] ACUTE KIDNEY INJURY RISK 2022-04-26 03:06:00 Cj Carvalho [facility] ASSESSMENT, NEPHROCHECK POC GLUCOSE 2022-04-26 01:00:00 Travis Merritt [facility] POC GLUCOSE 2022-04-25 23:54:00 Christen [facility] POC GLUCOSE 2022-04-25 23:03:00 Travis Merritt [facility] POC GLUCOSE 2022-04-25 22:10:00 Travis Merritt [facility] POC GLUCOSE 2022-04-25 20:58:00 Christen [facility] COVID-19 ANTI-SPIKE IGG 2022-04-25 20:57:00 [facility]TIB[facility]ITER COVID-19 SEROLOGY PATIENT 2022-04-25 20:57:00 [facility] ART[facility] BLOOD GAS 2022-04-25 20:57:00 Norberto Muhammad [facility] SURGICAL PATHOLOGY REQUEST 2022-04-25 20:55:00 Christen [facility] XR CHEST 1 VW PORTABLE 2022-04-25 20:24:11 [facility] 12-LEAD 2022-04-25 20:23:56 Deven [facility] ACUTE KIDNEY INJURY RISK 2022-04-25 20:17:00 Deven [facility] ASSESSMENT, NEPHROCHECK POC GLUCOSE 2022-04-25 19:58:00 Christen [facility] ARTERIAL BLOOD GAS 2022-04-25 19:48:00 [facility] IONIZED CALCIUM, ARTERIAL 2022-04-25 19:48:00 [facility] LACTIC ACID LEVEL 2022-04-25 19:47:00 [facility] BASIC METABOLIC PANEL 2022-04-25 19:47:00 [facility]PLETE BLD [facility] 2022-04-25 19:47:00 [facility]/AUTO DIFF MAGNESIUM LEVEL 2022-04-25 19:47:00 Deven [facility] spital PHOSPHORUS LEVEL 2022-04-25 19:47:00 Cj Carvalho ospital PROTHROMBIN TIME WITH INR 2022-04-25 19:47:00 Cj Carvalho [facility] PARTIAL THROMBOPLASTIN 2022-04-25 19:47:00 Cj Carvalho [facility] TIME (PTT) FIBRINOGEN 2022-04-25 19:47:00 Cj Carvalho Ho spital ESTIMATED GFR 2022-04-25 19:47:00 Cj Carvalho Ho spital CONSULT CARDIAC REHAB 2022-04-25 19:40:57 Norberto Muhammad [facility] PHASE 1 POC ARTERIAL BLOOD GAS, 2022-04-25 19:10:00 [facility] CORRECTED AND LYTES ACUTE KIDNEY INJURY RISK 2022-04-25 18:55:[address] [facility] ASSESSMENT, NEPHROCHECK FIBRINOGEN 2022-04-25 18:44:00 [facility] PLATELET COUNT 2022-04-25 18:44:00 [facility] PROTHROMBIN TIME WITH INR 2022-04-25 18:44:00 [facility] HEMOGLOBIN & HEMATOCRIT 2022-04-25 18:44:00 [facility] POC ARTERIAL BLOOD GAS, 2022-04-25 18:41:00 [facility] CORRECTED AND LYTES ACTIVATED CLOTTING TIME 2022-04-25 18:03:00 [facility] POC ARTERIAL BLOOD GAS, 2022-04-25 18:03:00 [facility] CORRECTED AND LYTES ACTIVATED CLOTTING TIME 2022-04-25 17:55:00 [facility] HEMOGLOBIN & HEMATOCRIT 2022-04-25 17:17:00 [facility] PLATELET COUNT 2022-04-25 17:17:00 [facility] PROTHROMBIN TIME WITH INR 2022-04-25 17:17:00 [facility] FIBRINOGEN 2022-04-25 17:17:00 [facility] ACTIVATED CLOTTING TIME 2022-04-25 17:17:00 Mary [facility] POC ARTERIAL BLOOD GAS, 2022-04-25 17:15:00 Mary [facility] CORRECTED AND LYTES ACTIVATED CLOTTING TIME 2022-04-25 16:44:00 [facility]LOOD [facility], 2022-04-25 16:43:00 Mary [facility] CORRECTED AND LYTES ANESTHESIA TEJINDER 2022-04-25 16:26:19 Lizzeth, Amado Garcia spital ACTIVATED CLOTTING TIME 2022-04-25 16:10:00 [facility] POC ARTERIAL BLOOD GAS, 2022-04-25 16:10:00 Mary [facility] CORRECTED AND LYTES ACTIVATED CLOTTING TIME 2022-04-25 15:51:00 [facility] ARTERIAL BLOOD GAS, 2022-04-25 15:51:00 Mary [facility] CORRECTED AND LYTES PA CATHETER 2022-04-25 15:24:28 Amado Moreau spital CENTRAL LINE 2022-04-25 14:13:12 Amado Moreau spital ACTIVATED CLOTTING TIME 2022-04-25 14:10:00 [facility] ARTERIAL BLOOD GAS, 2022-04-25 14:10:00 Mary [facility] CORRECTED AND LYTES ARTERIAL LINE 2022-04-25 13:34:56 Amado Moreau Ho spital NV AN ELECTIVE 2022-04-25 13:33:00 Amado Moreau spital ENDOTRACHEAL AIRWAY REPAIR OR REPLACEMENT, 2022-04-25 13:22:00 [facility], WITH CARDIOPULMONARY BYPASS ABO AND RH CONFIRMATION BY 2022-04-25 11:00:00 [facility] PROTOCOL XR CHEST 2 VW 2022-04-23 19:52:00 [facility] URINE CULTURE 2022-04-23 19:26:00 [facility] URINALYSIS SCREEN AND 2022-04-23 19:26:00 [facility] MICROSCOPY, WITH REFLEX TO CULTURE TYPE AND SCREEN 2022-04-23 19:11:00 [facility] LIPID PANEL 2022-04-23 19:11:00 [facility] MAGNESIUM LEVEL 2022-04-23 19:11:00 [facility] HEMOGLOBIN A1C 2022-04-23 19:11:00 [facility] PARTIAL THROMBOPLASTIN 2022-04-23 19:11:00 [facility] TIME (PTT) PROTHROMBIN TIME WITH INR 2022-04-23 19:11:00 [facility] COMPREHENSIVE METABOLIC 2022-04-23 19:11:00 [facility] PANEL HC COMPLETE BLD COUNT 2022-04-23 19:11:00 [facility] W/AUTO DIFF BILIRUBIN DIRECT 2022-04-23 19:11:00 [facility] ESTIMATED GFR 2022-04-23 19:11:00 [facility] PREPARE PLATELET PHERESIS 2022-04-23 19:11:00 [facility] COVID-19 QUALITATIVE 2022-04-23 19:04:00 [facility] RT-PCR ECG PRE/POST OP 2022-04-23 18:59:29 [facility] CV MRI FUNCTION VIABILITY 2022-03-20 22:07:28 [facility] CHF EVALUATION ESTIMATED GFR 2022-03-20 20:47:00 [facility] POC PANEL 2022-03-20 20:47:00 [facility] Plan of Care Planned Activity Planned Date Details Comments Source Future Scheduled 2023-03-15 Influenza Vaccine (#1) [facility] 00:00:00 [code = Influenza Vaccine [facility] (#1)] Future Scheduled 2023-03-12 Screening for malignant [facility] 18:37:05 neoplasm of colon Hospital (procedure) [code = 809595548] Future Scheduled 2023-03-12 Screening for malignant [facility] Test 18:37:05 neoplasm of colon Hospital (procedure) [code = 378871754] Future Scheduled 2023-03-12 Screening for malignant [facility] Test 18:37:05 neoplasm of colon Hospital (procedure) [code = 368577279] Future Scheduled 2023-03-12 Pneumococcal Vaccine: [facility] 18:37:05 Pediatrics (0 to 5 Years) Ho spital and At-Risk Patients (6 to 64 Years) (1 - PCV) [code = Pneumococcal Vaccine: Pediatrics (0 to 5 Years) and At-Risk Patients (6 to 64 Years) (1 - PCV)] Future Scheduled 2023-03-12 Hepatitis C screening [facility] 18:37:05 (procedure) [code = Hospital 214509903] Future Scheduled 2023-03-12 Screening for malignant [facility] 18:37:05 neoplasm of colon Hospital (procedure) [code = 416063517] Future Scheduled 2023-03-12 Screening for malignant [facility] Test 18:37:05 neoplasm of colon Hospital (procedure) [code = 161137051] Future Scheduled 2023-03-12 SHINGLES VACCINES (1 of [facility] 18:37:05 2) [code = SHINGLES Hospital VACCINES (1 of 2)] Future Scheduled 2023-03-12 COVID-19 VACCINE (3 - [facility] 18:37:05 Moderna series) [code = Hosp ital COVID-19 VACCINE (3 - Moderna series)] Future Scheduled 2023-03-12 INFLUENZA VACCINE (#1) [facility] 18:37:05 [code = INFLUENZA VACCINE Ho spital (#1)] Future Scheduled 2022-07-[address] [facility] 00:00:00 (12+) [code = DEPRESSION Med ical Center SCREENING (12+)] Future Scheduled 2022-05-22 HEPATITIS B VACCINES (1 [facility] 10:25:23 of 3 - 3-dose series) Hospit al [code = HEPATITIS B VACCINES (1 of 3 - 3-dose series)] Future Scheduled 2022-05-22 Pneumococcal Vaccine: [facility] 10:25:23 Pediatrics (0 to 5 Years) Ho spital and At-Risk Patients (6 to 64 Years) (1 - PCV) [code = Pneumococcal Vaccine: Pediatrics (0 to 5 Years) and At-Risk Patients (6 to 64 Years) (1 - PCV)] Future Scheduled 2022-05-22 Hepatitis C screening [facility] 10:25:23 (procedure) [code = Hospital 920985378] Future Scheduled 2022-05-22 COLONOSCOPY SCREENING [facility] 10:25:23 [code = COLONOSCOPY Hospital SCREENING] Future Scheduled 2022-05-22 SHINGLES VACCINES (1 of [facility] 10:25:23 2) [code = SHINGLES [facility] VACCINES (1 of 2)] Future Scheduled 2022-05-22 COVID-19 VACCINE (3 - [facility] 10:25:23 Booster for Moderna Hospital series) [code = COVID-19 VACCINE (3 - Booster for Moderna series)] Future Scheduled 2022-05-22 INFLUENZA VACCINE [code = [facility] 10:25:23 INFLUENZA VACCINE] Hospital Future Scheduled 2022-03-15 INFLUENZA VACCINE (#1) [facility] 00:[facility]00 [code = INFLUENZA VACCINE Me dical Center (#1)] Future Scheduled 2021-07-[address] [facility] 00:00:00 (12+) [code = DEPRESSION Med ical Center SCREENING (12+)] Future Scheduled 2021-07-[address] [facility] 00:00:00 Counseling and Screening Med ica Center (12+) [code = Tobacco Cessation Counseling and Screening (12+)] Future Scheduled 2009 SHINGLES VACCINES ([address] [facility] 00:00:00 2) [facility] [place] [facility] ([facility] of 2)] Future Scheduled 2009 SHINGLES VACCINES ([address] [facility] 00:00:00 [facility] Future Scheduled 1994 Lipid panel (procedure) [facility] 00:00:00 [code = 03867285] Medical Ce nter Future Scheduled 1994 Lipid panel (procedure) [facility] 00:00:00 [code = 53730741] Medical Ce nter Future Scheduled 1978 DTAP/TDAP/TD VACCINES ([address] [facility] 00:00:00 - Tdap) [code = Medical Cent er DTAP/TDAP/TD VACCINES (1 - Tdap)] Future Scheduled 1978 DTAP/TDAP/TD VACCINES ([address] [facility] 00:00:00 - Tdap) [code = Medical Cent er DTAP/TDAP/TD VACCINES (1 - Tdap)] Future Scheduled 1977 HEPATITIS C [facility]ING [facility] 00:00:00 [code = HEPATITIS C Medical Center SCREENING] Future Scheduled 1977 HEPATITIS C [facility] 00:00:00 [code = HEPATITIS C Medical Center SCREENING] Future Scheduled [address] [facility] 00:00:00 virus screening Medical Cent er (procedure) [code = 480863229] Future Scheduled 1960-01-28 COVID-19 VACCINE (#1) [facility] 00:00[facility]00 [code = COVID-19 VACCINE Med ical Center (#1)] Future Scheduled 1960-01-28 COVID-19 VACCINE (#1) [facility] 00:00[facility]00 [code = COVID-19 VACCINE Med ical Center (#1)] Future Scheduled 1959 CT Colonography (combo) [facility] 00:00:00 [code = CT Colonography [facility] (combo)] Future Scheduled 1959 Screening for malignant [facility] 00:00:00 neoplasm of colon Medical Ce nter (procedure) [code = 891503770] Future Scheduled 1959 Screening for malignant [facility] 00:00:00 neoplasm of colon Medical Ce nter (procedure) [code = 240348283] Future Scheduled 1959 Screening for malignant [facility] 00:00:00 neoplasm of colon Medical Ce nter (procedure) [code = 588624677] Future Scheduled 1959 Screening for malignant [facility] 00:00:00 neoplasm of colon Medical Ce nter (procedure) [code = 936782283] Future Scheduled 1959 Sigmoidoscopy [code = [facility] Sigmoidoscopy] Medical Cente r Future Scheduled 1959 CT Colonography (combo) [facility] 00:00:00 [code = CT Colonography [facility] (combo)] Future Scheduled 1959 Screening for malignant [facility] 00:00:00 neoplasm of colon Medical Ce nter (procedure) [code = 660673001] Future Scheduled 1959 Screening for malignant [facility] 00:00:00 neoplasm of colon Medical Ce nter (procedure) [code = 359458202] Future Scheduled 1959 Screening for malignant [facility] 00:00:00 neoplasm of colon Medical Ce nter (procedure) [code = 585829790] Future Scheduled 1959 Screening for malignant [facility] 00:00:00 neoplasm of colon Medical Ce nter (procedure) [code = 966489202] Future Scheduled 1959 Sigmoidoscopy [code = [facility] Sigmoidoscopy] Medical Cente r Encounters Start End Encounter Admission Attending Care Care Encounter Source Date/Time Date/Time Type Type Clinicians Facility Department ID 2022-01-30 Outpatient [facility], [facility] STLC [id number] Common 11:13:02 Gudelia [id number] [facility] 2021-08-09 [facility] STLC [id number] Common 14:16:45 Gudelia [id number] [facility] 2021-08-09 [facility] [id number] Common 13:57:32 Gudelia [id number] [facility] 2021-08-09 [facility] STLC [id number] Common 13:47:54 Gudelia [id number] [facility] 2021-08-09 [facility] STLC STLC [id number] Common 13:40:57 Gudelia [id number] [facility] 2021-08-09 [facility] [id number] Common 13:35:21 Gudelia [id number] [facility] 2021-08-09 Outpatient ANG Barrientos [facility] - Common 13:28:46 Gudelia [id number] [facility] 2021-08-09 Outpatient ANG Barrientos [facility] [id number]- Common 13:20:34 Gudelia [id number] [facility] 2022-07-01 2022-07-01 [facility], 1.2.840.1 [id number] Methodi 00:00:00 00:00:[address] 3.430.2.7 Hospit a .3.094353 l .8 2022-05-23 2022-05-23 [facility] Kapoor, 1.2.840.1 [id number] Methodi 00:00:00 00:00:[address] 3.430.2.7 Hospit a .3.435023 l .8 2022-05-23 2022-05-23 [facility], 1.2.840.1 [id number] [id number] Methodi 00:00:00 00:00:[address] 3.430.2.7 Hospit a .3.002720 l .8 2022-04-25 2022-05-01 [facility], 1.2.840.1 [id number] Methodi 05:31:00 14:46:00 Bebo Delacruz 68959.1.[address] 3.430.2.7 Hospit a .3.817268 l .8 2022-04-25 2022-05-01 [facility], 1.2.840.1 [id number] Methodi 05:31:00 14:46:00 Bebo Delacruz [address].1.[address] 3.430.2.7 Hospit a .3.060821 l .8 2022-04-23 2022-04-29 Pre-Admiss [facility], 1.2.840.1 [id number] Methodi 13:30:00 00:05:48 ion Travis Delacruz 08648.1.[address] Testing 3.430.2.7 Hospit a .3.253387 l .8 2022-04-23 2022-04-29 Pre-Admiss Christen, 1.2.840.1 [id number] Methodi 13:30:00 00:05:48 ernie Delacruz 94475.1.[address] Testing 3.430.2.7 Hospit a .3.011408 l .8 2022-04-25 2022-04-25 Surgery Christen, 1.2.840.1 [id number] Methodi 08:15:00 15:15:00 Travis Delacruz 02074.1.[address] 3.430.2.7 Hospit a .3.007260 l .8 2022-04-25 2022-04-25 Surgery Christen, 1.2.840.1 [id number] Methodi 08:15:00 15:15:00 Travis Delacruz 92116.1.[address] 3.430.2.7 Hospit a .3.808523 l .8 2022-04-25 2022-04-25 Anesthesia Di, Nilser 1.2.840.1 [id number] Methodi 08:22:00 14:37:00 Event Oscar Pretty 88171.1.[address] 3.430.2.7 Hospit a .3.180932 l .8 2022-04-25 2022-04-25 Anesthesia Di, Nilser 1.2.840.1 [id number] [id number] Methodi 08:22:00 14:37:00 Event Oscar Prettyen 81126.1.[address] 3.430.2.7 Hospit a .3.038494 l .8 2022-04-25 2022-04-25 Travel 1.2.840.1 1.2.758.401 6820 [id number] Methodi 00:00:00 00:00:[address] 3.430.2.7 0.2.7.3.698 Ho spita .3.158036 084.8 l .8 2022-04-25 2022-04-25 Travel 1.2.840.1 1.2.004.255 0110 [id number] Methodi 00:00:00 00:00:[address] 3.430.2.7 0.2.7.3.698 Ho spita .3.753321 084.8 l .8 2022-04-23 2022-04-23 [facility]1 [id number] 0003 [id number] Methodi 14:39:58 23:59:00 Encounter Travis Merritt 36655.1.[address] 3.430.2.7 Hospit a .3.896322 l .8 2022-04-23 2022-04-23 [facility] 1.2.840.1 [id number] 0003 [id number] Methodi 14:39:58 23:59:00 Encounter Travis Merritt 55551.1.[address] 3.430.2.7 Hospit a .3.010008 l .8 2022-04-23 2022-04-23 Travel 1.2.840.1 1.2.476.232 [id number] [id number] Methodi 00:00:00 00:00:[address] 3.430.2.7 0.2.7.3.698 Ho spita .3.830852 084.8 l .8 2022-04-23 2022-04-23 Travel 1.2.840.1 1.2.125.133 5134 [id number] Methodi 00:00:00 00:00:[address] 3.430.2.7 0.2.7.3.698 Ho spita .3.672971 084.8 l .8 2022-03-26 2022-03-26 [facility] [place], 1.2.840.1 [id number] Methodi 00:00:00 00:00:00 Surgery [place] [address]46.1.[address] 3.430.2.7 Hospit a .3.107471 l .8 2022-03-26 2022-03-26 Prep for Antwon, 1.2.840.1 [id number] Methodi 00:00:00 00:00:00 Surgery [place] [address]032.1.[address] 3.430.2.7 Hospit a .3.017592 l .8 2022-03-22 2022-03-22 [facility] 1.2.840.1 [id number] Methodi 00:00:00 00:00:00 ion Michelle 18766.1.[address] [place] 3.430.2.7 Hospit a .3.164941 l .8 2022-03-22 2022-03-22 [facility], 1.2.840.1 [id number] Methodi 00:00:00 00:00:00 ion Michelle 62981.1.[address] [place] 3.430.2.7 Hospit a .3.107042 l .8 2022-03-20 2022-03-20 [facility], 1.2.840.1 [id number] Methodi 15:00:00 23:59:00 Encounter Travis CoronelShanon 83068.1.[address] 3.430.2.7 Hospit a .3.075762 l .8 2022-03-20 2022-03-20 [facility], 1.2.840.1 [id number] Methodi 15:00:00 23:59:00 Encounter Travis Delacruz 32961.1.[address] 3.430.2.7 Hospit a .3.244154 l .8 2022-03-20 2022-03-20 [facility], 1.2.840.1 [id number] Methodi 14:15:00 14:52:35 Visit Travis CoronelShanon 26468.1.[address] 3.430.2.7 Hospit a .3.113593 l .8 2022-03-20 2022-03-20 [facility], 1.2.840.1 [id number] 6261 Methodi 14:15:00 14:52:35 Visit Travis Delacruz 44446.1.[address] 3.430.2.7 Hospit a .3.511168 l .8 2022-03-20 2022-03-20 Travel 1.2.840.1 1.2.519.640 9255 024495 Methodi 00:00:00 00:00:[address] 3.430.2.7 0.2.7.3.698 Ho spita .3.946830 084.8 l .8 2022-03-20 2022-03-20 Travel 1.2.840.1 1.2.303.627 6533 [id number] Methodi 00:00:00 00:00:[address] 3.430.2.7 0.2.7.3.698 Ho spita .3.883311 084.8 l .8 2022-03-15 2022-03-15 Travel 1.2.840.1 1.2.220.812 8093 757023 Methodi 00:00:00 00:00:[address] 3.430.2.7 0.2.7.3.698 Ho spita .3.222990 084.8 l .8 2021-06-22 2021-06-22 (IN/ASP) STLMLC STLMLC [id number] C ommon 00:00:00 00:00:00 INJ [facility] 2021-06-15 2021-06-15 (IN/ASP) STLMLC STLMLC [id number] C ommon 00:00:00 00:00:00 INJ [facility] 2021-06-07 2021-06-07 (IN/ASP) STLMLC STLMLC [id number] C ommon 00:00:00 00:00:00 INJ [facility] 2021-05-22 2021-05-22 (TEL) STLMLC STLMLC [id number] Co mmon 00:00:00 00:00:00 [facility] 2021-05-15 2021-05-15 (TEL) STLMLC STLMLC [id number] Co mmon 00:00:00 00:00:00 [facility] 2021-05-01 2021-05-01 NON-BILLAB STLMLC STLMLC [id number] Common 00:00:00 00:00:00 LE VISIT [facility] 2021-04-20 2021-04-20 (TEL) STLMLC STLMLC [id number] Co mmon 00:00:00 00:00:00 [facility] 2021-03-30 2021-03-30 Postop STLMLC STLMLC [id number] Co mmon 00:00:00 00:00:00 visit [facility] 2021-03-21 2021-03-21 NON-BILLAB STLMLC STLMLC [id number] Common 00:00:00 00:00:00 LE VISIT [facility] 2021-03-13 2021-03-13 (TEL) STLMLC STLMLC [id number] Co mmon 00:00:00 00:00:00 [facility] 2021-03-09 2021-03-09 (TEL) STLMLC STLMLC [id number] Co mmon 00:00:00 00:00:00 [facility] 2021-03-06 2021-03-06 (TEL) STLMLC STLMLC [id number] Co mmon 00:00:00 00:00:00 [facility] 2021-03-03 2021-03-03 OFFICE STLMLC STLMLC [id number] Co mmon 00:00:00 00:00:00 VISIT [facility] 4 [facility] 2021-02-27 2021-02-27 (TEL) STLMLC STLMLC [id number] Co mmon 00:00:00 00:00:00 [facility] 2021-02-21 2021-02-21 (TEL) STLMLC STLMLC [id number] Co mmon 00:00:00 00:00:00 [facility] 2021-02-21 2021-02-21 OFFICE STLMLC STLMLC [id number] Co mmon 00:00:00 00:00:00 VISIT [facility] PT - [facility] LEVEL 4 [facility] 2021-02-17 2021-02-17 (TEL) STLMLC STLMLC [id number] Co mmon 00:00:00 00:00:00 [facility] 2021-02-06 2021-02-06 OFFICE STLMLC STLMLC [id number] Co mmon 00:00:00 00:00:00 VISIT EST Spir it PT LEVEL 3 [facility] 2021-01-23 2021-01-23 OFFICE STLMLC STLMLC [id number] Co mmon 00:00:00 00:00:00 VISIT EST Spir it PT LEVEL 3 [facility] 2021-01-17 2021-01-17 (TEL) STLMLC STLMLC [id number] Co mmon 00:00:00 00:00:00 [facility] 2021-01-10 2021-01-10 OFFICE STLMLC STLMLC [id number] Co mmon 00:00:00 00:00:00 VISIT NEW Spir it PT LEVEL 3 [facility] 2020-08-10 2020-08-10 Outpatient EL CHESTER, [facility] [id number] [facility] 00:00:00 00:00:00 ERROL 2020-08-01 2020-08-01 Outpatient EL DUMONT, [facility] SLE [id number] [facility] 00:00:00 00:00:00 SHANIKA 2020-07-27 2020-07-27 Outpatient EL [facility]H [facility]H [id number] [facility] 00:00:00 00:00:00 2020-07-06 2020-07-06 Outpatient EL XIAOCARLOS, [facility] SLE [id number] [facility] 00:00:00 00:00:00 ERORL 2020-06-01 2020-06-01 Emergency ER [facility] Emergency [id number] [facility] 18:04:00 18:04:00 Results Test Description Test Time Test Comments Results Result Comments Source Surgical pathology request 2022-06-26 22:28:24 Test Item Value Reference Range Interpretation Comme [facility] Case number (test code = 8619240) [id number] Surgical pathology report (test code = See link below for PDF Lab R eport 0101) Result status (test code = 8477443) This is Final Report for [id number] [facility] [id number] 17:00:00 Test Item Value Reference Range Interpretation Comments POC glucose (test code = 119 mg/dL 65-99 H Ope rator Name: 61843-4) Kaelyn Kohler ID: [id number] able: [facility] Notified produce associate Interpretation (test Abnormal code = 18010-3) [facility] [id number] 17:00:00 Test Item Value Reference Range Interpretation Comments POC glucose (test code = 119 mg/dL 65-99 H Ope rator Name: 89733-9) Kaelyn Kohler ID: [id number] able: [facility] Notified produce associate Interpretation (test Abnormal code = 20956-2) [place] [address] [id number] 00:48:39 Test Item Value Reference Range Interpretation Comments Ventricular rate (test 71 code = 253) Atrial rate (test code 71 = 255) NV interval (test code 132 = 266) QRSD interval (test 90 code = 260) QT interval (test code 406 = 264) QTC interval (test code 441 = 265) P axis 1 (test code = 16 267) QRS axis 1 (test code = -9 268) T wave axis (test code 46 = 270) EKG impression (test Normal sinus code = 273) rhythm-Minimal voltage criteria for LVH, may be normal variant ( R in aVL )-Inferior infarct (cited on or before 26-APR-2022)-Abnormal ECG-In automated comparison with ECG of 26-APR-2022 04:11,-No significant change was found- [place] [address] [id number] 00:48:39 Test Item Value Reference Range Interpretation Comments Ventricular rate (test code = 253) Atrial rate (test code = 255) NV interval (test code = 266) QRSD interval [...] of 26-APR-2022 04:11,-No significant change was found- [facility] platelet [id number] 21:39:00 Test Item Value Reference Range Interpretation Comments Product name (test code Platelets Aph LR, Path = 25) Red cont1 Unit number (test code [id number] = 5059460) Product code (test code U2138N82 = 3092) Dispense status (test Returned to BB not code = 24) transfused Blood expiration date (test code = 302) Blood type code (test 6200 code = 308) Blood type (test code = A POSITIVE 1314) Compatibility (test Not required code = 6400) [facility] platelet [id number] 21:39:00 Test Item Value Reference Range Interpretation Comments Product name (test code Platelets Aph LR, = 25) Path Red cont1 Unit number (test code = [id number]) Product code (test code O9272F82 = 3092) Dispense status (test Returned to BB not code = 24) transfused Blood expiration date (test code = 302) Blood type code (test code = 308) Blood type (test code = A POSITIVE 1314) Compatibility (test code Not required = 6400) [facility] [id number] 20:48:00 Test Item Value Reference Range Interpretation Comments Product name (test code Red Blood Cells -1, = 25) Leukored Unit number (test code [id number] = 1812345) Product code (test code Q2616T95 = 3092) Dispense status (test Returned to BB not code = 24) transfused Blood expiration date (test code = 302) Blood type code (test 9500 code = 308) Blood type (test code = O NEGATIVE 1314) Compatibility (test Compatible code = 6400) [facility] [id number] 20:48:00 Test Item Value Reference Range Interpretation Comments Product name (test code Red Blood Cells -1, = 25) Leukored Unit number (test code = [id number] 3514246) Product code (test code L3699N55 = 3092) Dispense status (test Returned to not code = 24) transfused Blood expiration date (test code = 302) Blood type code (test code = 308) Blood type (test code = O NEGATIVE 1314) Compatibility (test code Compatible = 6400) [facility] arterial blood gas, corrected and [id number] 19:13:00 Test Item Value Reference Range Interpretation Comments pH, arterial (test 7.37 7.35-7.45 code = 2744-1) pCO2, arterial (test 36 See_Comment [Autom ated message] code = 2019-8) The system [facility] generated this result transmitted ref erence range: 35 - 45 mmHg. The reference r kelvin was not used to interpret this result as normal/abnor mal. pO2, arterial (test 284 See_Comment H [Automa josefina message] code = 2703-7) The system [facility] generated this result transmitted ref erence range: 80 - 90 mmHg. The reference r kelvin was not used to interpret this result as normal/abnor mal. Temperature, Celsius 37.0 Degrees C (test code = 8310-5) O2 saturation, 95-100 arterial (test code = 2708-6) pH, arterial 7.37 corrected (test code = 18824-5) pCO2, arterial 36 mmHg corrected (test code = 21000-1) pO2, arterial 284 mmHg Advertising Operations Manager ID: Cheli mars corrected (test code Annadit hDevice ID: = 81847-3) [id number] Base excess, arterial -4 See_Comment L [Auto mated message] (test code = 1925-7) The sys tem which generated this result transmitted ref erence range: -2 - 2 m Eq/L. The reference r kelvin was not used to interpret this result as normal/abnor mal. Hemoglobin, syringe 9.8 g/dL 14.0-18.0 L (test code = 718-7) Potassium, syringe 4.4 See_Comment [Automat ed message] (test code = 2007) The syste m which generated this result transmitted ref erence range: 3.5 - 5. 0 mEq/L. The refe rence range was not u sed to interpret this result as normal/abnor mal. Sodium, syringe (test 138 See_Comment [Auto mated message] code = 2947-0) The system [facility] generated this result transmitted ref erence range: 135 - 14 8 mEq/L. The refe rence range was not u sed to interpret this result as normal/abnor mal. Ionized calcium, 1.27 mmol/L 1.11-1.32 arterial (test code = 06701-1) Glucose, syringe 144 mg/dL 65-99 H (test code = 2345-7) Lactic acid, syringe 1.5 mmol/L 0.5-2.2 (test code = 45202-2) Lab Interpretation Abnormal (test code = 72562-2) [facility] arterial blood gas, corrected and [id number] 19:13:00 Test Item Value Reference Range Interpretation Comments pH, arterial (test 7.35-7.45 code = 2744-1) pCO2, arterial (test See_Comment [Autom ated message] code = 2019-8) The system [facility] generated this result transmitted ref erence range: 35 - 45 mmHg. The reference r kelvin was not used to interpret this result as normal/abnor mal. pO2, arterial (test See_Comment H [Automa josefina message] code = 2703-7) The system [facility] generated this result transmitted ref erence range: 80 - 90 mmHg. The reference r kelvin was not used to interpret this result as normal/abnor mal. Temperature, Celsius Degrees C (test code = 8310-5) O2 saturation, 95-100 arterial (test code = 2708-6) pH, arterial corrected (test code = 55032-1) pCO2, arterial mmHg corrected (test code = 03289-0) pO2, arterial mmHg Advertising Operations Manager ID: Cheli ollard corrected (test code Nahum Savageice ID: = 01699-3) [id number] Base excess, arterial See_Comment L [Auto mated [...] 1.27 mmol/L 1.11-1.32 arterial (test code = 56020-9) Glucose, syringe 144 mg/dL 65-99 H (test code = 2345-7) Lactic acid, syringe 1.5 mmol/L 0.5-2.2 (test code = 99517-8) Lab Interpretation Abnormal (test code = 98393-1) [facility] [id number] 18:06:00 Test Item Value Reference Range Interpretation Comments Activated clotting 105 See_Comment Advertising Operations Manager Name: Karen time (test code = Blaire vice ID: [id number]) [id number] [Autom ated message] The sy stem which generated this result transmitted ref erence range: 96 - 152 sec. The reference range was not used to interpr et this result as jordyn l/abnormal. [facility] [id number] 18:06:00 Test Item Value Reference Range Interpretation Comments Activated clotting See_Comment Advertising Operations Manager Name: Karen time (test code = Blaire vice ID: [id number]) [id number] [Autom ated message] The sy stem which generated this result transmitted ref erence range: 96 - 152 sec. The reference range was not used to interpr et this result as jordyn l/abnormal. [facility] Pre/Post [id number] 01:37:55 Test Item Value Reference Range Interpretation Comments Ventricular rate (test 82 code = 253) Atrial rate (test code = 82 255) NV interval (test code = 146 266) QRSD interval (test code 94 = 260) QT interval (test code = 388 264) QTC interval (test code 453 = 265) P axis 1 (test code = 36 267) QRS axis 1 (test code = 4 268) T wave axis (test code = 70 270) EKG impression (test Normal sinus code = 273) rhythm-Normal ECG-No previous ECGs available-Electronica lly Signed By Reji Ortega MD ([id number]) on 04/23/2022 8:37:54 PM [facility] Pre/Post [id number] 01:37:55 Test Item Value Reference Range Interpretation Comments Ventricular rate (test code = 253) Atrial rate (test code = 255) NV interval (test code = 266) QRSD interval (test code = 260) QT interval (test code = 264) QTC interval (test code = 265) P axis 1 (test code = 267) QRS axis 1 (test code = 268) T wave axis (test code = 270) EKG impression (test Normal sinus code = 273) rhythm-Normal ECG-No previous ECGs available-Electronica lly Signed By Reji Ortega MD ([id number]) on 04/23/2022 8:37:54 PM [facility] [Presence] in Respiratory specimen by JAYLA with probe [id number] 22:24:06 Test Item Value Reference Range Interpretation Comments SARS-CoV-2 (COVID-19) RNA Not detected [Presence] in Respiratory specimen by JAYLA with probe detection (test code = 20071-1) Whether patient is employed in a Unknown healthcare setting (test code = 92691-3) Whether the patient has symptoms Unknown related to condition of interest (test code = 39434-5) Whether the patient was Unknown hospitalized for condition of interest (test code = 45771-0) Whether the patient was admitted Unknown to intensive care unit (ICU) for condition of interest (test code = 47786-1) Whether patient resides in a Unknown congregate care setting (test code = 17229-3) status (test code = Unknown 30432-8) Date and time of symptom onset Unknown (test code = 04848-0) [facility] [id number] 20:30:00 Test Item Value Reference Range Interpretation Comments Urine culture (test SEE COMMENT Bacteriu americo screen code = 3672865) negative. [facility] [id number] 20:30:00 Test Item Value Reference Range Interpretation Comments Urine culture (test SEE COMMENT Bacteriu americo screen code = 8309627) negative. [facility] [id number] 20:50:01 Test Item Value Reference Range Interpretation Comments POC creatinine (test 1.2 mg/dl 0.7-1.2 Operato r Name: code = 60762-1) Muriel Dove di~Device ID: [id number] POC hematocrit (test 43 % 41-51 code = 4544-3) [facility] [id number] 20:50:01 Test Item Value Reference Range Interpretation Comments POC creatinine (test 1.2 mg/dl 0.7-1.2 Operato r Name: code = 17928-3) Muriel Dove di~Device ID: [id number] POC hematocrit (test 43 % 41-51 code = 4544-3) [facility] [id number] 08:17:00 Test Item Value Reference Range Interpretation Comments POC-GLUCOSE METER 90 mg/dL 70-110 : TESTED A T [facility] 6720 (BEAKER) (test code = MONIQUEBERNARDA Jimenez [facility], 1538) [address]: Advertising Operations Manager/Techni yamini ID = [id number] for VERITO THAKUR BASIC METABOLIC [id number] 02:36:00 Test Item Value Reference Range Interpretation [...] S NOT APPLICABLE FOR DIALYSIS PATIEN TS. Advertising Operations Manager ID - [id number] 02:35:00 Test Item Value Reference Range Interpretation Comments MAGNESIUM (BEAKER) (test code = 2.1 mg/dL 1.6-2.6 627) Advertising Operations Manager ID - EDASICBC W/PLT COUNT & AUTO [id number] 02:14:00 Test Item Value Reference Range Interpretation [...] PERCENT (BEAKER) (test code = 2801) POCT-GLUCOSE [id number] 21:04:00 Test Item Value Reference Range Interpretation Comments POC-GLUCOSE METER 102 mg/dL 70-110 : TESTED A T [facility] 6720 (BEAKER) (test code = [facility], 153) 81835: Advertising Operations Manager/Techni yamini ID = [id number] for RO JASON, GIULIANA POCT-GLUCOSE [id number] 17:13:00 Test Item Value Reference Range Interpretation Comments POC-GLUCOSE METER 94 mg/dL 70-110 : TESTED A T [facility] 6720 (BEAKER) (test code = [facility], 1538) 80892: Advertising Operations Manager/Techni yamini ID = [id number] for KIZHAKEKATTIL, GERALD POCT-GLUCOSE [id number] 12:37:00 Test Item Value Reference Range Interpretation Comments POC-GLUCOSE METER 126 mg/dL 70-110 H : TESTED A T [facility] 6720 (BEAKER) (test code = [facility], 1538) 59199: Advertising Operations Manager/Techni yamini ID = [id number] for KIZHAKEKATTIL, GERALD POCT-GLUCOSE [id number] 09:51:00 Test Item Value Reference Range Interpretation Comments POC-GLUCOSE METER 135 mg/dL 70-110 H : TESTED A T [facility] 6720 (BEAKER) (test code = [place], 1538) 668[address]: Advertising Operations Manager/Techni yamini ID = [id number] for ANDREW HYATT BASIC METABOLIC [id number] 05:44:00 Test Item Value Reference Range Interpretation [...] S NOT APPLICABLE FOR DIALYSIS PATIEN TS. Advertising Operations Manager ID - ROSA [id number] 05:43:00 Test Item Value Reference Range Interpretation Comments MAGNESIUM (BEAKER) (test code = 2.2 mg/dL 1.6-2.6 627) Advertising Operations Manager ID - ROSA MURIC [id number] 05:43:00 Test Item Value Reference Range Interpretation Comments URIC ACID (BEAKER) (test code = 7.3 mg/dL 2.6-7.2 H 773) Advertising Operations Manager ID - ROSA MLACTATE DEHYDROGENASE (LDH)2020-06-14 05:43:00 Test Item Value Reference Range Interpretation Comments LACTATE DEHYDROGENASE (BEAKER) (test 383 U/L 125-220 H code = 635) Advertising Operations Manager ID - ROSA MCBC W/PLT COUNT & AUTO [id number] 05:20:00 Test Item Value Reference Range Interpretation [...] PERCENT (BEAKER) (test code = 2801) BLOOD [id number] 23:00:00 Test Item Value Reference Range Interpretation Comments CULTURE (BEAKER) (test No growth in 5 days code = 1095) BLOOD [id number] 23:00:00 Test Item Value Reference Range Interpretation Comments CULTURE (BEAKER) (test No growth in 5 days code = 1095) POCT-GLUCOSE [id number] 20:46:00 Test Item Value Reference Range Interpretation Comments POC-GLUCOSE METER 131 mg/dL 70-110 H : TESTED A T [facility] 6720 (BEAKER) (test code = [facility], 1538) 91173: Advertising Operations Manager/Techni yamini ID = [id number] for THERON MONTALVO POCT-GLUCOSE [id number] 17:25:00 Test Item Value Reference Range Interpretation Comments POC-GLUCOSE METER 100 mg/dL 70-110 : TESTED A T [facility] 6720 (BEAKER) (test code = [facility], 1538) 28094: Advertising Operations Manager/Techni yamini ID = [id number] for MELIA, GERALD POCT-GLUCOSE [id number] 11:43:00 Test Item Value Reference Range Interpretation Comments POC-GLUCOSE METER 78 mg/dL 70-110 : TESTED A T [facility] 6720 (BEAKER) (test code = [facility], 1538) 11693: Advertising Operations Manager/Techni yamini ID = [id number] for ADDISONNerissa AGEE, TEVIN POCT-GLUCOSE [id number] 06:39:00 Test Item Value Reference Range Interpretation Comments POC-GLUCOSE METER 91 mg/dL 70-110 : TESTED A T [facility] 6720 (BEAKER) (test code = [facility], 1538) 18561: Advertising Operations Manager/Techni yamini ID = [id number] for BRENDA CARRASQUILLOAE [id number] 03:35:00 Test Item Value Reference Range Interpretation Comments MAGNESIUM (BEAKER) (test code = 2.0 mg/dL 1.6-2.6 627) Advertising Operations Manager ID - [id number] 03:35:00 Test Item Value Reference Range Interpretation Comments PHOSPHORUS (BEAKER) (test code = 2.4 mg/dL 2.3-4.7 604) Advertising Operations Manager ID - EDASIBASIC METABOLIC [id number] 03:35:00 Test Item Value Reference Range Interpretation [...] S NOT APPLICABLE FOR DIALYSIS PATIEN TS. Advertising Operations Manager ID - EDASICBC W/PLT COUNT & AUTO [id number] 03:17:00 Test Item Value Reference Range Interpretation [...] PERCENT (BEAKER) (test code = 2801) CALCIUM, [id number] 03:09:00 Test Item Value Reference Range Interpretation Comments CALCIUM IONIZED (BEAKER) (test 1.04 mmol/L 1.12-1.27 L code = 698) PH, BLOOD (BEAKER) (test code = 7.50 1810) VANCOMYCIN LEVEL, [id number] 11:35:00 Test Item Value Reference Range Interpretation Comments VANCOMYCIN TROUGH (BEAKER) (test 8.9 ug/mL 10.0-20.0 L code = 522) Advertising Operations Manager ID - EDASICBC W/PLT COUNT & AUTO [id number] 06:04:00 Test Item Value Reference Range Interpretation [...] (BEAKER) (test code = 2801) BASIC METABOLIC [id number] 05:37:00 Test Item Value Reference Range Interpretation [...] S NOT APPLICABLE FOR DIALYSIS PATIEN TS. Advertising Operations Manager ID - [id number] 05:37:00 Test Item Value Reference Range Interpretation Comments MAGNESIUM (BEAKER) (test code = 2.2 mg/dL 1.6-2.6 627) Advertising Operations Manager ID - [id number] 05:37:00 Test Item Value Reference Range Interpretation Comments PHOSPHORUS (BEAKER) (test code = 3.0 mg/dL 2.3-4.7 604) Advertising Operations Manager ID - EDASICALCIUM, [id number] 04:59:00 Test Item Value Reference Range Interpretation Comments CALCIUM IONIZED (BEAKER) (test 1.08 mmol/L 1.12-1.27 L code = 698) PH, BLOOD (BEAKER) (test code = 7.47 1810) RAD, CHEST, 1 VIEW, NON [id number] 02:04:00Reason for exam:->Chest Tubes, s/p MVRShould this be performed at the bedside?->Yes [facility] : 1960 Sex: MFINAL REPORT [...] effusions. There is no pneumothorax. Signed: Nette Kerneport Verified Date/Time: 06/12/2020 02:04:44 [id number] 20:11:00 Test Item Value Reference Range Interpretation Comments POTASSIUM (BEAKER) (test code = 3.5 meq/L 3.5-5.1 379) Advertising Operations Manager ID - ROSA MPOCT-GLUCOSE [id number] 18:37:00 Test Item Value Reference Range Interpretation Comments POC-GLUCOSE METER 118 mg/dL 70-110 H : TESTED A T [facility] 6720 (BEAKER) (test code = [facility], 153) 82838: Advertising Operations Manager/Techni yamini ID = [id number] for ALVARO PRASAD NAZ POCT-GLUCOSE [id number] 06:25:00 Test Item Value Reference Range Interpretation Comments POC-GLUCOSE METER 78 mg/dL 70-110 : TESTED A T [facility] 6720 (BEAKER) (test code = [facility], 153) 03794: Advertising Operations Manager/Techni yamini ID = [id number] for Reuben Anderson CALCIUM, [id number] 05:03:00 Test Item Value Reference Range Interpretation Comments CALCIUM IONIZED (BEAKER) (test 1.09 mmol/L 1.12-1.27 L code = 698) PH, BLOOD (BEAKER) (test code = 7.47 1810) BASIC METABOLIC [id number] 04:01:00 Test Item Value Reference Range Interpretation [...] S NOT APPLICABLE FOR DIALYSIS PATIEN TS. Advertising Operations Manager ID - [id number] 04:01:00 Test Item Value Reference Range Interpretation Comments MAGNESIUM (BEAKER) (test code = 2.3 mg/dL 1.6-2.6 627) Advertising Operations Manager ID - [id number] 04:01:00 Test Item Value Reference Range Interpretation Comments PHOSPHORUS (BEAKER) (test code = 3.1 mg/dL 2.3-4.7 604) Advertising Operations Manager ID - EDASICBC W/PLT COUNT & AUTO [id number] 03:49:00 Test Item Value Reference Range Interpretation [...] = 2801) RAD, CHEST, 1 VIEW, NON [id number] 01:36:00Reason for exam:->Chest Tubes, s/p MVRShould this be performed at the bedside?->Yes [facility] EM[facility] : 1960 Sex: MFINAL REPORT CLINICAL INDICATION: Support lines. Comparison: 06/10/2020 The cardiomediastinal contours are stable. Bilateral parenchymal and pleural opacities are unchanged. There is no pneumothorax. Support lines are stable. Signed: Janis Alvarez MDReport Verified Date/Time: 06/11/2020 01:36:54 POCT- GLUCOSE [id number] 00:24:00 Test Item Value Reference Range Interpretation Comments POC-GLUCOSE METER 86 mg/dL 70-110 : TESTED A T [facility] (test code = [place] [place], 1538) 42996: Advertising Operations Manager/Techni yamini ID = [id number] for Reuben Anderson SARS-COV2/RT-PCR ([facility])2020-06-10 23:09:00 Test Item Value Reference Range Interpretation Comments SARS-COV2/RT-PCR (test Negative Not Detected, Negative, code = 4995464) See external report for linked test SARS-COV-2 PERFORMING LAB [facility] AMISHA (test code = 8369792) Negative result for this test determines that [...] of the Act.Fact Sheet for Healthcare Prov iders:https://www.[employer]/sites/default/files/product/documents/Fact_Sheet_HC _Scjjgncfb_Vpcn_NAXB-IdS-4.pdfFact Sheet for Healthcare Patients:https://www.[employer]/sites/default/files/product/docume nts/[id number]_[id number].pdfPerforming Laboratory:[facility] [place], [place] [address]cristy gomez.[place], [place] [address]WTLBZA SATURATION, [id number] 20:24:00 Test Item Value Reference Range Interpretation Comments O2 SATURATION (MEASURED) (BEAKER) 64.2 % (test code = 1455) BASIC METABOLIC [id number] 14:35:00 Test Item Value Reference Range Interpretation [...] S NOT APPLICABLE FOR DIALYSIS PATIEN TS. Advertising Operations Manager ID - [id number] 14:07:00 Test Item Value Reference Range Interpretation Comments MAGNESIUM (BEAKER) (test code = 2.5 mg/dL 1.6-2.6 627) Advertising Operations Manager ID - [id number] 14:07:00 Test Item Value Reference Range Interpretation Comments PHOSPHORUS (BEAKER) (test code = 3.9 mg/dL 2.3-4.7 604) Advertising Operations Manager ID - ADMINHEMOGLOBIN AND [id number] 13:45:00 Test Item Value Reference Range Interpretation Comments HEMOGLOBIN (BEAKER) (test code = 8.0 GM/DL 13.7-17.5 L 410) HEMATOCRIT (BEAKER) (test code = 24.7 % 40.1-51.0 L 411) Advertising Operations Manager ID - [id number], [id number] 13:33:00 Test Item Value Reference Range Interpretation Comments CALCIUM IONIZED (BEAKER) (test 1.06 mmol/L 1.12-1.27 L code = 698) PH, BLOOD (BEAKER) (test code = 7.46 1810) POCT-GLUCOSE [id number] 12:05:00 Test Item Value Reference Range Interpretation Comments POC-GLUCOSE METER 101 mg/dL 70-110 : TESTED A T [facility] 6720 (BEAKER) (test code = ROSMERY TRIPP, 1538) [address]: Advertising Operations Manager/Techni yamini ID = [id number] for CA PRECIOUS CALVIN OXYGEN SATURATION, [id number] 11:58:00 Test Item Value Reference Range Interpretation Comments O2 SATURATION (MEASURED) (BEAKER) 68.4 % (test code = 1455) OXYGEN SATURATION, [id number] 07:39:00 Test Item Value Reference Range Interpretation Comments O2 SATURATION (MEASURED) (BEAKER) 62.9 % (test code = 1455) [id number] 06:27:00 Test Item Value Reference Range Interpretation Comments MAGNESIUM (BEAKER) (test code = 2.6 mg/dL 1.6-2.6 627) Advertising Operations Manager ID - [id number] 06:27:00 Test Item Value Reference Range Interpretation Comments PHOSPHORUS (BEAKER) (test code = 4.6 mg/dL 2.3-4.7 604) Advertising Operations Manager ID - DBVANCOMYCIN LEVEL, [id number] 04:00:00 Test Item Value Reference Range Interpretation Comments VANCOMYCIN RANDOM (BEAKER) (test 15.6 ug/mL code = 523) Reference Range: No NormalsOperator ID - EDASIBASIC METABOLIC [id number] 03:48:00 Test Item Value Reference Range Interpretation [...] S NOT APPLICABLE FOR DIALYSIS PATIEN TS. Advertising Operations Manager ID - EDASICBC (HEMOGRAM ONLY)2020-06-10 03:28:00 Test [...] = 413) RAD, CHEST, 1 VIEW, NON [id number] 01:15:00Reason for exam:->Chest Tubes, s/p MVRShould this be performed at the bedside?->Yes [facility] : 1960 Sex: MFINAL REPORT Chest one view. Clinical history: Chest Tubes, s/p MVR Comparison:Chest radiograph 06/09/2020. Technique: A single frontal view of the chest was obtained. Findings:There has been interval removal of right IJ [place]- Andrews catheter which has been replaced by a vascular sheath whose tip is in the SVC. There are mediastinal drains. There are median sternotomy wires.The card iomediastinal contours are stable. There are bibasilar airspace opacities, increased in the interval. There are small bilateral pleural effusions. There is no pneumothorax. Signed: Nette Kern MDReport Verified Date/Time: 06/10/2020 01:15:12 POCT-GLUCOSE [id number] 16:44:00 Test Item Value Reference Range Interpretation Comments POC-GLUCOSE METER 118 mg/dL 70-110 H : Notified RN/MD: (BEAKER) (test code = TESTED AT [facility] 6719 1536) [facility], [address]: Advertising Operations Manager/Techni yamini ID = [id number] for FABIANO LEA BASIC METABOLIC [id number] 16:31:00 Test Item Value Reference Range Interpretation [...] S NOT APPLICABLE FOR DIALYSIS PATIEN TS. Advertising Operations Manager ID - [id number] 16:30:00 Test Item Value Reference Range Interpretation Comments MAGNESIUM (BEAKER) (test code = 2.6 mg/dL 1.6-2.6 627) Advertising Operations Manager ID - [id number] 16:30:00 Test Item Value Reference Range Interpretation Comments PHOSPHORUS (BEAKER) (test code = 4.3 mg/dL 2.3-4.7 604) Advertising Operations Manager ID - DBCBC W/PLT COUNT & AUTO [id number] 15:23:00 Test Item Value Reference Range Interpretation [...] PERCENT (BEAKER) (test code = 2801) CALCIUM, [id number] 15:16:00 Test Item Value Reference Range Interpretation Comments CALCIUM IONIZED (BEAKER) (test 1.13 mmol/L 1.12-1.27 code = 698) PH, BLOOD (BEAKER) (test code = 7.45 1810) POCT-GLUCOSE [id number] 11:59:00 Test Item Value Reference Range Interpretation Comments POC-GLUCOSE METER 122 mg/dL 70-110 H : Notified RN/MD: (BANNER) (test code = TESTED AT [place] [address] 153) [facility], [address]: Advertising Operations Manager/Techni yamini ID = [id number] for FABIANO LEA VANCOMYCIN LEVEL, [id number] 11:37:00 Test Item Value Reference Range Interpretation Comments VANCOMYCIN RANDOM (BEAKER) (test 15.3 ug/mL code = 523) Reference Range: No NormalsOperator ID - KESHA FPOCT-GLUCOSE [id number] 06:03:00 Test Item Value Reference Range Interpretation Comments POC-GLUCOSE METER 124 mg/dL 70-110 H : TESTED A T [facility] 67 (BEAKER) (test code = [facility] Tony [facility], 1538) [address]: Advertising Operations Manager/Techni yamini ID = [id number] for Yanet Villalta OXYGEN SATURATION, [id number] 05:59:00 Test Item Value Reference Range Interpretation Comments O2 SATURATION (MEASURED) (BEAKER) 82.1 % (test code = 1455) BLOOD GAS, [id number] 05:03:00 Test Item Value Reference Range Interpretation [...] 1819) 30.0 RAD, CHEST, 1 VIEW, NON [id number] 04:26:00while patient is intubated or has chest tubes.Reason for exam:->Status post CV SurgeryShould thisbe performed at the bedside?->Yes [facility] EM[facility] : 1960 Sex: MFINAL REPORT Chest one view. Clinical history: Status post CV Surgery Comparison: Chest radiograph 06/08/2020. Technique: A single frontal view of the chest was obtained. Findings:Support lines and tubes are in satisfactory positions. The patient is status post median sternotomy.The cardiomediastinal contours are stable. There are small bilateral pleural effusions. There are pers istent bibasilar opacities. There is no pneumothorax. Signed: Nette Kern MDReport Verified Date/Time: 06/09/2020 04:26:06 BASIC METABOLIC [id number] 04:14:00 Test Item Value Reference Range Interpretation [...] S NOT APPLICABLE FOR DIALYSIS PATIEN TS. Advertising Operations Manager ID - ROSA MURIC [id number] 03:56:00 Test Item Value Reference Range Interpretation Comments URIC ACID (BEAKER) 11.5 mg/dL 2.6-7.2 H Specimen slightly (test code = 773) hemolyzed Advertising Operations Manager ID - ROSA [id number] 03:55:00 Test Item Value Reference Range Interpretation Comments MAGNESIUM (BEAKER) (test code = 2.7 mg/dL 1.6-2.6 H 627) Advertising Operations Manager ID - ROSA MCBC (HEMOGRAM ONLY)2020-06-09 03:54:00 [...] WBC 0-0 (test code = 413) CALCIUM, [id number] 03:42:00 Test Item Value Reference Range Interpretation Comments CALCIUM IONIZED (BEAKER) (test 1.12 mmol/L 1.12-1.27 code = 698) PH, BLOOD (BEAKER) (test code = 7.43 1810) OXYGEN SATURATION, [id number] 23:21:00 Test Item Value Reference Range Interpretation Comments O2 SATURATION (MEASURED) (BEAKER) 84.1 % (test code = 1455) POCT-GLUCOSE [id number] 23:05:00 Test Item Value Reference Range Interpretation Comments POC-GLUCOSE METER 141 mg/dL 70-110 H : TESTED A T [facility] 6720 (Victrix) (test code = [facility]ENTERAdvanced [facility] Logic [facility], 153) [address]: Advertising Operations Manager/Techni yamini ID = [id number] for Ne al, Yanet [id number] 19:31:00 Test Item Value Reference Range Interpretation Comments PROCALCITONIN (BEAKER) (test code 29.03 ng/mL <0.05 = 3036) SEPSIS RISK (ng/mL)Low: 0.05-0.50Intermediate: 0.51-2.00High: >=2.01POCT- GLUCOSE [id number] 19:03:00 Test Item Value Reference Range Interpretation Comments POC-GLUCOSE METER 150 mg/dL 70-110 H : TESTED A T [facility] 6720 (BE[employer]) (test code = [facility] [employer] [facility], 153) [address]: Advertising Operations Manager/Techni yamini ID = [id number] for CA STARDO, JUNDELL [id number] 14:52:00 Test Item Value Reference Range Interpretation Comments MAGNESIUM (BEAKER) (test code = 2.7 mg/dL 1.6-2.6 H 627) Advertising Operations Manager ID - EDASIBASIC METABOLIC [id number] 14:52:00 Test Item Value Reference Range Interpretation [...] S NOT APPLICABLE FOR DIALYSIS PATIEN TS. Advertising Operations Manager ID - EDASILACTIC ACID, [id number] 14:48:00 Test Item Value Reference Range Interpretation Comments LACTATE BLOOD ARTERIAL (2) 1.6 mmol/L 0.5-2.2 (BEAKER) (test code = 2874) Advertising Operations Manager ID - BSOXYGEN SATURATION, [id number] 14:46:00 Test Item Value Reference Range Interpretation [...] 0-0 (test code = 413) BLOOD GAS, [id number] 14:36:00 Test Item Value Reference Range Interpretation [...] (BEAKER) (test code = 1819) 36.1 POCT-GLUCOSE [id number] 12:58:00 Test Item Value Reference Range Interpretation Comments POC-GLUCOSE METER 150 mg/dL 70-110 H : TESTED A T [facility] 6720 (BEAKER) (test code = ROSMERY [place]ARD [place], 1538) [address]: Advertising Operations Manager/Techni yamini ID = [id number] for PRECIOUS YOON VANCOMYCIN LEVEL, [id number] 12:44:00 Test Item Value Reference Range Interpretation Comments VANCOMYCIN TROUGH (BEAKER) (test 24.1 ug/mL 10.0-20.0 H code = 522) Advertising Operations Manager ID - ROSIANGBASIC METABOLIC [id number] 04:31:00 Test Item Value Reference Range Interpretation [...] S NOT APPLICABLE FOR DIALYSIS PATIEN TS. Advertising Operations Manager ID - [id number] 04:29:00 Test Item Value Reference Range Interpretation Comments MAGNESIUM (BEAKER) (test code = 2.6 mg/dL 1.6-2.6 627) Advertising Operations Manager ID - [id number] 04:29:00 Test Item Value Reference Range Interpretation Comments PHOSPHORUS (BEAKER) (test code = 4.9 mg/dL 2.3-4.7 H 604) Advertising Operations Manager ID - EDASILACTIC ACID, [id number] 04:19:00 Test Item Value Reference Range Interpretation Comments LACTATE BLOOD ARTERIAL (2) 2.8 mmol/L 0.5-2.2 H (BEAKER) (test code = 2874) Advertising Operations Manager ID - EDASICBC (HEMOGRAM ONLY)2020-06-08 04:16:00 Test [...] 0-0 (test code = 413) BLOOD GAS, [id number] 04:11:00 Test Item Value Reference Range Interpretation [...] (BEAKER) 37.0 (test code = 1818) CALCIUM, [id number] 04:11:00 Test Item Value Reference Range Interpretation Comments CALCIUM IONIZED (BEAKER) (test 1.08 mmol/L 1.12-1.27 L code = 698) PH, BLOOD (BEAKER) (test code = 7.40 1810) OXYGEN SATURATION, [id number] 04:07:00 Test Item Value Reference Range Interpretation Comments O2 SATURATION (MEASURED) (BEAKER) 62.8 % (test code = 1455) RAD, CHEST, 1 VIEW, NON [id number] 02:17:00while patient is intubated or has chest tubes.Reason for exam:->Status post CV SurgeryShould thisbe performed at the bedside?->Yes [facility] MYRNA EM[facility] : 1960 Sex: MFINAL REPORT [...] Fam Craft MDReport Verified Date/Time: 06/08/2020 02:17:37 [id number] 00:19:00 Test Item Value Reference Range Interpretation Comments MAGNESIUM (BEAKER) (test code = 2.8 mg/dL 1.6-2.6 H 627) Advertising Operations Manager ID - PIAYA LBASIC METABOLIC [id number] 00:19:00 Test Item Value Reference Range Interpretation [...] S NOT APPLICABLE FOR DIALYSIS PATIEN TS. Advertising Operations Manager ID - PIAYA LLACTIC ACID, [id number] 00:13:00 Test Item Value Reference Range Interpretation Comments LACTATE BLOOD ARTERIAL (2) 3.1 mmol/L 0.5-2.2 H (BEAKER) (test code = 2874) Advertising Operations Manager ID - PIAYA LCBC (HEMOGRAM ONLY)2020-06-08 00:07:00 [...] (BEAKER) (test code = 413) BLOOD GAS, [id number] 23:59:00 Test Item Value Reference Range Interpretation [...] (BEAKER) (test code = 1819) 21.0 CALCIUM, [id number] 23:59:00 Test Item Value Reference Range Interpretation Comments CALCIUM IONIZED (BEAKER) (test 1.11 mmol/L 1.12-1.27 L code = 698) PH, BLOOD (BEAKER) (test code = 7.34 1810) OXYGEN SATURATION, [id number] 23:57:00 Test Item Value Reference Range Interpretation Comments O2 SATURATION (MEASURED) (BEAKER) 62.5 % (test code = 1455) POCT-GLUCOSE [id number] 19:10:00 Test Item Value Reference Range Interpretation Comments POC-GLUCOSE METER 208 mg/dL 70-110 H : TESTED A T [facility] 6720 (BEAKER) (test code = ROSMERY [place], 1538) [address]: Advertising Operations Manager/Techni yamini ID = [id number] for Ca mpos (V), Luzinda BLOOD GAS, [id number] 17:34:00 Test Item Value Reference Range Interpretation [...] (test code = 1819) 40.0 OXYGEN SATURATION, [id number] 17:33:00 Test Item Value Reference Range Interpretation [...] = 413) RAD, CHEST, 1 VIEW, NON [id number] 12:58:00Reason for exam:->post stertotomu revisionShould this be performed at the bedside?->Yes [facility] 1960 Sex: MFINAL [...] Robert MDReport VerifiedDate/Time: 06/07/2020 12:58:51 Reading Location: [facility] Radiology Reading Room LACTIC ACID, ARTERIAL 2020-06-07 12:54:00 Test Item Value Reference Range Interpretation Comments LACTATE BLOOD ARTERIAL (2) 2.6 mmol/L 0.5-2.2 H (PJ) (test code = 2874) Advertising Operations Manager ID - KESHA FPOCT-GLUCOSE [id number] 12:44:00 Test Item Value Reference Range Interpretation Comments POC-GLUCOSE METER 172 mg/dL 70-110 H : TESTED A T [facility] 6720 (PJ) (test code = ROSMERY CARD [place], 1538) [address]: Advertising Operations Manager/Techni yamini ID = [id number] for Ca mpos (V), Jennifera LACTIC ACID, [id number] 09:07:00 Test Item Value Reference Range Interpretation Comments LACTATE BLOOD ARTERIAL (2) 1.7 mmol/L 0.5-2.2 (BEAKER) (test code = 2874) Advertising Operations Manager ID - KESHA FVANCOMYCIN LEVEL, [id number] 09:06:00 Test Item Value Reference Range Interpretation Comments VANCOMYCIN TROUGH (BEAKER) (test 17.5 ug/mL 10.0-20.0 code = 522) Advertising Operations Manager ID - KESHA FPOCT-GLUCOSE [id number] 06:17:00 Test Item Value Reference Range Interpretation Comments POC-GLUCOSE METER 137 mg/dL 70-110 H : TESTED A T [facility] 6720 (BEAKER) (test code = ROSMERY Jimenez CARD [place], 1538) [address]: Advertising Operations Manager/Techni yamini ID = [id number] for AH AMAD, HALLIE BASIC METABOLIC [id number] 04:38:00 Test Item Value Reference Range Interpretation [...] S NOT APPLICABLE FOR DIALYSIS PATIEN TS. Advertising Operations Manager ID - GE LRAD, CHEST, 1 VIEW, NON [id number] 04:22:00while patient is intubated or has chest tubes.Reason for exam:->Status post CV SurgeryShould thisbe performed at the bedside?->Yes [facility] : 1960 Sex: MFINAL REPORT RAD, CHEST, 1 VIEW, NON DEPT INDICATION: Status post CV Surgery COMPARISON: 10 hours prior FINDINGS: Portable frontal view of the chest. IMPRESSION: Support Lines: No significant change. Lungs and pleura: Stable retrocardiac opacity, likely atelectasis. No pneumothorax.Heart and mediastinum: Stable contours. Additional findings: None. Signed: Fam Craft MDReport Verified Date/Time: 06/07/2020 04:22:30 [id number] 04:18:00 Test Item Value Reference Range Interpretation Comments MAGNESIUM (BEAKER) (test code = 2.8 mg/dL 1.6-2.6 H 627) Advertising Operations Manager ID - PIAYA [id number] 04:18:00 Test Item Value Reference Range Interpretation Comments PHOSPHORUS (BEAKER) (test code = 2.8 mg/dL 2.3-4.7 604) Advertising Operations Manager ID - PIAYA MINIT/[id number] 03:43:00 Test Item Value Reference Range Interpretation [...] for patients wiht mechanical heart valves.LACTIC ACID, [id number] 03:30:00 Test Item Value Reference Range Interpretation Comments LACTATE BLOOD ARTERIAL (2) 2.3 mmol/L 0.5-2.2 H (BEAKER) (test code = 2874) Advertising Operations Manager ID - EDASICBC (HEMOGRAM ONLY)2020-06-07 03:25:00 Test [...] (BEAKER) (test code = 413) BLOOD GAS, [id number] 03:20:00 Test Item Value Reference Range Interpretation [...] (test code = 1819) 40.0 OXYGEN SATURATION, [id number] 03:20:00 Test Item Value Reference Range Interpretation Comments O2 SATURATION (MEASURED) (BEAKER) 57.9 % (test code = 1455) GLUCOSE-STAT [id number] 03:16:00 Test Item Value Reference Range Interpretation Comments GLUCOSE RANDOM (BEAKER) (test code = 85 mg/dL 70-110 652) SODIUM NA-STAT [id number] 03:16:00 Test Item Value Reference Range Interpretation Comments SODIUM (BEAKER) (test code = 381) 138 meq/L 136-145 POTASSIUM-STAT [id number] 03:16:00 Test Item Value Reference Range Interpretation Comments POTASSIUM (BEAKER) (test code = 4.3 meq/L 3.6-5.5 379) BLOOD GAS, [id number] 03:16:00 Test Item Value Reference Range Interpretation [...] = 1819) 40.0 HGB/HCT (H&H) - STAT [id number] 03:16:00 Test Item Value Reference Range Interpretation Comments HEMOGLOBIN (BEAKER) (test code = 8.8 GM/DL 13.0-16.8 L 410) HEMATOCRIT (BEAKER) (test code = 26.0 % 40.0-50.0 L 411) CALCIUM, [id number] 03:16:00 Test Item Value Reference Range Interpretation Comments CALCIUM IONIZED (BEAKER) (test 1.05 mmol/L 1.12-1.27 L code = 698) PH, BLOOD (BEAKER) (test code = 7.50 1810) POCT-GLUCOSE [id number] 02:56:00 Test Item Value Reference Range Interpretation Comments POC-GLUCOSE METER 94 mg/dL 70-110 : TESTED A T [facility] 6720 (BEAKER) (test code = [facility], 1538) [address]: Advertising Operations Manager/Techni yamini ID = [id number] for BHARAT CANELAIA POCT-GLUCOSE [id number] 01:53:00 Test Item Value Reference Range Interpretation Comments POC-GLUCOSE METER 121 mg/dL 70-110 H : TESTED A T [facility] 6720 (BANNER) (test code = [facility], 1538) [address]: Advertising Operations Manager/Techni yamini ID = [id number] for BHARAT MCCARTHYRICIA LACTIC ACID, [id number] 00:36:00 Test Item Value Reference Range Interpretation Comments LACTATE BLOOD ARTERIAL (2) 4.1 mmol/L 0.5-2.2 HH (BEAKER) (test code = 2874) Advertising Operations Manager ID - PIAYA LPOCT-GLUCOSE [id number] 00:05:00 Test Item Value Reference Range Interpretation Comments POC-GLUCOSE METER 200 mg/dL 70-110 H : TESTED A T [facility] 6720 (BEAKER) (test code = [facility], 1538) [address]: Advertising Operations Manager/Techni yamini ID = [id number] for CARYN Beckham, BHARAT MORALESTEVIN POCT-GLUCOSE [id number] 00:05:00 Test Item Value Reference Range Interpretation Comments POC-GLUCOSE METER 241 mg/dL 70-110 H : TESTED A T [facility] 6720 (BEAKER) (test code = ROSMERY CARD [place], 1538) [address]: Advertising Operations Manager/Techni yamiin ID = [id number] for BHARAT MCCARTHY BLOOD GAS, [id number] 22:08:00 Test Item Value Reference Range Interpretation [...] (BEAKER) (test code = 1819) 60.0 GLUCOSE-STAT [id number] 22:08:00 Test Item Value Reference Range Interpretation Comments GLUCOSE RANDOM (BEAKER) (test code 239 mg/dL 70-110 H = 652) HGB/HCT (H&H) - STAT [id number] 22:08:00 Test Item Value Reference Range Interpretation Comments HEMOGLOBIN (BEAKER) (test code = 10.5 GM/DL 13.0-16.8 L 410) HEMATOCRIT (BEAKER) (test code = 31.0 % 40.0-50.0 L 411) SODIUM NA-STAT [id number] 22:07:00 Test Item Value Reference Range Interpretation Comments SODIUM (BEAKER) (test code = 381) 139 meq/L 136-145 POTASSIUM-STAT [id number] 22:07:00 Test Item Value Reference Range Interpretation Comments POTASSIUM (BEAKER) (test code = 3.9 meq/L 3.6-5.5 379) [id number] 20:48:00 Test Item Value Reference Range Interpretation Comments MAGNESIUM (BEAKER) (test code = 3.0 mg/dL 1.6-2.6 H 627) Advertising Operations Manager ID - BSLACTIC ACID, [id number] 20:48:00 Test Item Value Reference Range Interpretation Comments LACTATE BLOOD ARTERIAL (2) 7.1 mmol/L 0.5-2.2 HH (BEAKER) (test code = 2874) Advertising Operations Manager ID - BSBASIC METABOLIC [id number] 20:48:00 Test Item Value Reference Range Interpretation [...] S NOT APPLICABLE FOR DIALYSIS PATIEN TS. Advertising Operations Manager ID - [id number] 20:48:00 Test Item Value Reference Range Interpretation Comments PARTIAL THROMBOPLASTIN TIME 82.5 seconds 22.5-36.0 H (BEAKER) (test code = 760) PROTHROMBIN [id number] 20:47:00 Test Item Value Reference Range Interpretation [...] is 2.5-3.5 for patients wiht mechanical heart valves.[id number] 20:47:00 Test Item Value Reference Range Interpretation [...] (BEAKER) (test code = 413) BLOOD GAS, [id number] 20:18:00 Test Item Value Reference Range Interpretation [...] (BEAKER) (test code = 1819) 60.0 CALCIUM, [id number] 20:18:00 Test Item Value Reference Range Interpretation Comments CALCIUM IONIZED (BEAKER) (test 1.10 mmol/L 1.12-1.27 L code = 698) PH, BLOOD (BEAKER) (test code = 7.32 1810) POCT-GLUCOSE [id number] 18:22:00 Test Item Value Reference Range Interpretation Comments POC-GLUCOSE METER 288 mg/dL 70-110 H : TESTED A T [facility] 6720 (BANNER) (test code = [facility], 1538) [address]: Advertising Operations Manager/Techni yamini ID = [id number] for CARYN NBHARATIA POCT-GLUCOSE [id number] 18:20:00 Test Item Value Reference Range Interpretation Comments POC-GLUCOSE METER 276 mg/dL 70-110 H : TESTED A T [facility] 6720 (BANNER) (test code = [facility], 1538) [address]: Advertising Operations Manager/Techni yamini ID = [id number] for BHARAT MCCARTHY LACTIC ACID, [id number] 17:49:00 Test Item Value Reference Range Interpretation Comments LACTATE BLOOD 9.7 mmol/L 0.5-2.2 HH Specimen sligh tly ARTERIAL (2) (BANNER) hemoly zed (test code = 2874) Advertising Operations Manager ID - ADMINPOCT-GLUCOSE [id number] 17:14:00 Test Item Value Reference Range Interpretation Comments POC-GLUCOSE METER 293 mg/dL 70-110 H : TESTED A T [facility] 6720 (BEAKER) (test code = [facility], 1538) [address]: Advertising Operations Manager/Techni yamini ID = [id number] for TA NBHARATIA [id number] 16:47:00 Test Item Value Reference Range Interpretation Comments FIBRINOGEN LEVEL (BEAKER) (test 262 mg/dl 225-434 code = 658) [id number] 16:47:00 Test Item Value Reference Range Interpretation [...] 2.5-3.5 for patients wiht mechanical heart valves.PROTHROMBIN [id number] 16:46:00 Test Item Value Reference Range Interpretation [...] for patients wiht mechanical heart valves.BLOOD GAS, [id number] 16:16:00 Test Item Value Reference Range Interpretation [...] (test code = 1819) 60.0 LACTIC ACID, [id number] 16:10:00 Test Item Value Reference Range Interpretation Comments LACTATE BLOOD 7.2 mmol/L 0.5-2.2 HH Specimen moder ately ARTERIAL (2) (BEAKER) hemoly zed (test code = 2874) Advertising Operations Manager ID - ADMINCOMPREHENSIVE METABOLIC [id number] 16:05:00 Test Item Value Reference Range Interpretation [...] S NOT APPLICABLE FOR DIALYSIS PATIEN TS. Advertising Operations Manager ID - [id number] 16:03:00 Test Item Value Reference Range Interpretation Comments MAGNESIUM (BEAKER) 3.5 mg/dL 1.6-2.6 H Specimen moderately (test code = 627) hemolyzed Advertising Operations Manager ID - [id number] 16:03:00 Test Item Value Reference Range Interpretation Comments PHOSPHORUS (BEAKER) 3.5 mg/dL 2.3-4.7 Specimen moderately (test code = 604) hemolyzed Advertising Operations Manager ID - ADMINCBC W/PLT COUNT & AUTO [id number] 15:45:00 Test Item Value Reference Range Interpretation [...] (BEAKER) (test code = 413) BLOOD GAS, [id number] 15:22:00 Test Item Value Reference Range Interpretation [...] (BEAKER) (test code = 1819) 60.0 GLUCOSE-STAT [id number] 15:22:00 Test Item Value Reference Range Interpretation Comments GLUCOSE RANDOM (BEAKER) (test code 267 mg/dL 70-110 H = 652) CALCIUM, [id number] 15:21:00 Test Item Value Reference Range Interpretation Comments CALCIUM IONIZED (BEAKER) (test 1.12 mmol/L 1.12-1.27 code = 698) PH, BLOOD (BEAKER) (test code = 7.26 1810) OXYGEN SATURATION, [id number] 15:20:00 Test Item Value Reference Range Interpretation Comments O2 SATURATION (MEASURED) (BEAKER) 67.1 % (test code = 1455) SODIUM NA-STAT [id number] 15:19:00 Test Item Value Reference Range Interpretation Comments SODIUM (BEAKER) (test code = 381) 139 meq/L 136-145 POTASSIUM-STAT [id number] 15:19:00 Test Item Value Reference Range Interpretation Comments POTASSIUM (BEAKER) (test code = 4.0 meq/L 3.6-5.5 379) HGB/HCT (H&H) - STAT [id number] 15:19:00 Test Item Value Reference Range Interpretation Comments HEMOGLOBIN (BEAKER) (test code = 13.6 GM/DL 13.0-16.8 410) HEMATOCRIT (BEAKER) (test code = 40.0 % 40.0-50.0 411) RAD, CHEST, 1 VIEW, NON [id number] 15:19:00Reason for exam:->Status post CV Surgery post op day 0Should this be performed at the bedside?->Yes [facility] : 1960 Sex: [...] MDReport Verified Date/Time: 06/06/2020 15:19:17 Reading Location: [facility] Radiology Reading Room [id number] 14:22:00 Test Item Value Reference Range Interpretation Comments ACTIVATED CLOTTING TIME 109 sec : 74 -137 seconds, (BEAKER) (test code = Baseli ne: TESTED AT 441) [facility] [address] [facility], [facility] 30: Advertising Operations Manager/Techni yamini ID = [id number] for LAZARA LILYBARB [id number] 14:22:00 Test Item Value Reference Range Interpretation Comments ACTIVATED CLOTTING TIME 422 sec : 74 -137 seconds, (BEAKER) (test code = Baseli ne: TESTED AT 441) [facility] [address] [facility], [facility] 30: Advertising Operations Manager/Techni yamini ID = [id number] for BARB JEONG [id number] 14:22:00 Test Item Value Reference Range Interpretation Comments ACTIVATED CLOTTING TIME 521 sec : 74 -137 seconds, (BEAKER) (test code = Baseli ne: TESTED AT 441) [address], [facility] [place] 30: Advertising Operations Manager/Techni yamini ID = [id number] for BE BARB BAUTISTA [id number] 14:21:00 Test Item Value Reference Range Interpretation Comments ACTIVATED CLOTTING TIME 439 sec : 74 -137 seconds, (BEAKER) (test code = Baseli ne: TESTED AT 441) [address], [facility] 30: Advertising Operations Manager/Techni yamini ID = [id number] for BE BARB BAUTISTA [id number] 14:21:00 Test Item Value Reference Range Interpretation Comments ACTIVATED CLOTTING TIME 555 sec : 74 -137 seconds, (BEAKER) (test code = Baseli ne: TESTED AT 441) [address], [facility] 30: Advertising Operations Manager/Techni yamini ID = [id number] for BE BARB BAUTISTA [id number] 14:21:00 Test Item Value Reference Range Interpretation Comments ACTIVATED CLOTTING TIME 593 sec : 74 -137 seconds, (BEAKER) (test code = Baseli ne: TESTED AT 441) [address], [facility] 30: Advertising Operations Manager/Techni yamini ID = [id number] for BARB JEONG [id number] 14:21:00 Test Item Value Reference Range Interpretation Comments ACTIVATED CLOTTING TIME 114 sec : 74 -137 seconds, (BEAKER) (test code = Baseli ne: TESTED AT 441) [address], [facility] 30: Advertising Operations Manager/Techni yamini ID = [id number] for BARB JEONG CALCIUM, [id number] 13:51:00 Test Item Value Reference Range Interpretation Comments CALCIUM IONIZED (BEAKER) (test 0.92 mmol/L 1.12-1.27 L code = 698) PH, BLOOD (BEAKER) (test code = 7.31 1810) BLOOD GAS, [id number] 13:51:00 Test Item Value Reference Range Interpretation [...] (BEAKER) (test code = 1819) 100.0 GLUCOSE-STAT [id number] 13:51:00 Test Item Value Reference Range Interpretation Comments GLUCOSE RANDOM (BEAKER) (test code 277 mg/dL 70-110 H = 652) HGB/HCT (H&H) - STAT [id number] 13:51:00 Test Item Value Reference Range Interpretation Comments HEMOGLOBIN (BEAKER) (test code = 10.7 GM/DL 13.0-16.8 L 410) HEMATOCRIT (BEAKER) (test code = 31.0 % 40.0-50.0 L 411) SODIUM NA-STAT [id number] 13:49:00 Test Item Value Reference Range Interpretation Comments SODIUM (BEAKER) (test code = 381) 137 meq/L 136-145 POTASSIUM-STAT [id number] 13:49:00 Test Item Value Reference Range Interpretation Comments POTASSIUM (BEAKER) (test code = 3.5 meq/L 3.6-5.5 L 379) SODIUM NA-STAT [id number] 12:29:00 Test Item Value Reference Range Interpretation Comments SODIUM (BEAKER) (test code = 381) 136 meq/L 136-145 POTASSIUM-STAT [id number] 12:29:00 Test Item Value Reference Range Interpretation Comments POTASSIUM (BEAKER) (test code = 4.4 meq/L 3.6-5.5 379) BLOOD GAS, [id number] 12:29:00 Test Item Value Reference Range Interpretation [...] (BEAKER) (test code = 1819) 63.5 GLUCOSE-STAT [id number] 12:29:00 Test Item Value Reference Range Interpretation Comments GLUCOSE RANDOM (BEAKER) (test code 271 mg/dL 70-110 H = 652) HGB/HCT (H&H) - STAT [id number] 12:29:00 Test Item Value Reference Range Interpretation Comments HEMOGLOBIN (BEAKER) (test code = 10.6 GM/DL 13.0-16.8 L 410) HEMATOCRIT (BEAKER) (test code = 31.0 % 40.0-50.0 L 411) SODIUM NA-STAT [id number] 12:05:00 Test Item Value Reference Range Interpretation Comments SODIUM (BEAKER) (test code = 381) 136 meq/L 136-145 BLOOD GAS, [id number] 12:05:00 Test Item Value Reference Range Interpretation [...] (BEAKER) (test code = 1819) 70.0 POTASSIUM-STAT [id number] 12:05:00 Test Item Value Reference Range Interpretation Comments POTASSIUM (BEAKER) (test code = 5.9 meq/L 3.6-5.5 H 379) GLUCOSE-STAT [id number] 12:05:00 Test Item Value Reference Range Interpretation Comments GLUCOSE RANDOM (BEAKER) (test code 137 mg/dL 70-110 H = 652) HGB/HCT (H&H) - STAT [id number] 12:05:00 Test Item Value Reference Range Interpretation Comments HEMOGLOBIN (BEAKER) (test code = 10.4 GM/DL 13.0-16.8 L 410) HEMATOCRIT (BEAKER) (test code = 31.0 % 40.0-50.0 L 411) GLUCOSE-STAT [id number] 11:27:00 Test Item Value Reference Range Interpretation Comments GLUCOSE RANDOM (BEAKER) (test code 116 mg/dL 70-110 H = 652) HGB/HCT (H&H) - STAT [id number] 11:27:00 Test Item Value Reference Range Interpretation Comments HEMOGLOBIN (BEAKER) (test code = 12.8 GM/DL 13.0-16.8 L 410) HEMATOCRIT (BEAKER) (test code = 38.0 % 40.0-50.0 L 411) BLOOD GAS, [id number] 11:25:00 Test Item Value Reference Range Interpretation [...] (test code = 1819) 60.0 BLOOD GAS, [id number] 11:24:00 Test Item Value Reference Range Interpretation [...] (test code = 1819) 60.0 SODIUM NA-STAT [id number] 11:23:00 Test Item Value Reference Range Interpretation Comments SODIUM (BEAKER) (test code = 381) 135 meq/L 136-145 L POTASSIUM-STAT [id number] 11:23:00 Test Item Value Reference Range Interpretation Comments POTASSIUM (BEAKER) (test code = 5.2 meq/L 3.6-5.5 379) BLOOD GAS, [id number] 10:00:00 Test Item Value Reference Range Interpretation [...] (BEAKER) (test code = 1819) 100.0 CALCIUM, [id number] 10:00:00 Test Item Value Reference Range Interpretation Comments CALCIUM IONIZED (BEAKER) (test 1.09 mmol/L 1.12-1.27 L code = 698) PH, BLOOD (BEAKER) (test code = 7.48 1810) GLUCOSE-STAT [id number] 09:58:00 Test Item Value Reference Range Interpretation Comments GLUCOSE RANDOM (BEAKER) (test code 106 mg/dL 70-110 = 652) SODIUM NA-STAT [id number] 09:58:00 Test Item Value Reference Range Interpretation Comments SODIUM (BEAKER) (test code = 381) 135 meq/L 136-145 L POTASSIUM-STAT [id number] 09:58:00 Test Item Value Reference Range Interpretation Comments POTASSIUM (BEAKER) (test code = 4.0 meq/L 3.6-5.5 379) HGB/HCT (H&H) - STAT [id number] 09:58:00 Test Item Value Reference Range Interpretation Comments HEMOGLOBIN (BEAKER) (test code = 14.6 GM/DL 13.0-16.8 410) HEMATOCRIT (BEAKER) (test code = 43.0 % 40.0-50.0 411) [id number] 06:17:00 Test Item Value Reference Range Interpretation Comments MAGNESIUM (BEAKER) 2.2 mg/dL 1.6-2.6 Specimen slightly (test code = 627) hemolyzed Advertising Operations Manager ID - ADMINBASIC METABOLIC [id number] 06:17:00 Test Item Value Reference Range Interpretation [...] S NOT APPLICABLE FOR DIALYSIS PATIEN TS. Advertising Operations Manager ID - [id number] 06:08:00 Test Item Value Reference Range Interpretation Comments PARTIAL THROMBOPLASTIN TIME 90.7 seconds 22.5-36.0 H (BEAKER) (test code = 760) PROTHROMBIN [id number] 06:06:00 Test Item Value Reference Range Interpretation [...] = 413) RAD, CHEST, 1 VIEW, NON [id number] 03:36:00Reason for exam:->iabp positionShould this be performed at the bedside?->Yes [facility] 1960 Sex: MFINAL [...] Fam Craft MDReport Verified Date/Time: 06/06/2020 03:36:00 [id number] 01:07:00 Test Item Value Reference Range Interpretation Comments PARTIAL THROMBOPLASTIN TIME 76.5 seconds 22.5-36.0 H (BEAKER) (test code = 760) [id number] 14:53:00 Test Item Value Reference Range Interpretation Comments MAGNESIUM (BEAKER) 2.4 mg/dL 1.6-2.6 Specimen markedly (test code = 627) hemolyzed Advertising Operations Manager ID - [id number] 14:53:00 Test Item Value Reference Range Interpretation Comments POTASSIUM (BEAKER) 5.1 meq/L 3.5-5.1 Specimen markedly (test code = 379) hemolyzed Advertising Operations Manager ID - AAHAMIDRAD, CHEST, 1 VIEW, NON [id number] 07:50:00Reason for exam:->pulmonary edemaShould this be performed at the bedside?->Yes [facility] 1960 Sex: MFINAL [...] Otherwise, no acute cardiopulmonary abnormalities. Signed: Buffy Boldeneport Verified Date/Time: 06/05/2020 07:50:49 Reading Location: [address] Consult Reading Room BASIC METABOLIC [id number] 07:12:00 Test Item Value Reference Range Interpretation [...] S NOT APPLICABLE FOR DIALYSIS PATIEN TS. Advertising Operations Manager ID - GE [id number] 07:12:00 Test Item Value Reference Range Interpretation Comments MAGNESIUM (BEAKER) (test code = 2.0 mg/dL 1.6-2.6 627) Advertising Operations Manager ID Clayton [place] LCBC (HEMOGRAM ONLY)2020-06-05 05:50:00 Test Item Value [...] WBC 0-0 (BEAKER) (test code = 413) [id number] 04:57:00 Test Item Value Reference Range Interpretation Comments PARTIAL THROMBOPLASTIN TIME 88.7 seconds 22.5-36.0 H (BEAKER) (test code = 760) [id number] 20:13:00 Test Item Value Reference Range Interpretation Comments MAGNESIUM (BEAKER) (test code = 2.2 mg/dL 1.6-2.6 627) Advertising Operations Manager ID - [id number] 20:13:00 Test Item Value Reference Range Interpretation Comments POTASSIUM (BEAKER) (test code = 3.8 meq/L 3.5-5.1 379) Advertising Operations Manager ID - [id number] 10:59:00 Test Item Value Reference Range Interpretation Comments PARTIAL THROMBOPLASTIN TIME 77.1 seconds 22.5-36.0 H (BEAKER) (test code = 760) BASIC METABOLIC [id number] 04:43:00 Test Item Value Reference Range Interpretation [...] S NOT APPLICABLE FOR DIALYSIS PATIEN TS. Advertising Operations Manager ID - [id number] 04:43:00 Test Item Value Reference Range Interpretation Comments MAGNESIUM (BEAKER) (test code = 2.0 mg/dL 1.6-2.6 627) Advertising Operations Manager ID - [id number] 04:25:00 Test Item Value Reference Range Interpretation [...] WBC 0-0 (BEAKER) (test code = 413) [id number] 17:14:00 Test Item Value Reference Range Interpretation Comments ACTIVATED CLOTTING TIME 125 sec : 74 -137 seconds, (BEAKER) (test code = Baseli ne: TESTED AT 441) [facility] [address] [facility] [place], [address] 30: Advertising Operations Manager/Techni yamini ID = [id number] for CO NROD JUAN PABLO ([place])LIZ HEPATIC FUNCTION [id number] 05:00:00 Test Item Value Reference Range Interpretation [...] (test code = 52 U/L 6-55 347) Advertising Operations Manager ID - [id number] 04:44:00 Test Item Value Reference Range Interpretation [...] WBC 0-0 (BEAKER) (test code = 413) [id number] 18:48:00 Test Item Value Reference Range Interpretation Comments PARTIAL THROMBOPLASTIN TIME 84.3 seconds 22.5-36.0 H (BEAKER) (test code = 760) [id number] 13:02:00 Test Item Value Reference Range Interpretation Comments PARTIAL THROMBOPLASTIN TIME 84.8 seconds 22.5-36.0 H (BEAKER) (test code = 760) BASIC METABOLIC [id number] 07:18:00 Test Item Value Reference Range Interpretation [...] S NOT APPLICABLE FOR DIALYSIS PATIEN TS. Advertising Operations Manager ID - ROSA [id number] 07:18:00 Test Item Value Reference Range Interpretation Comments MAGNESIUM (BEAKER) (test code = 2.0 mg/dL 1.6-2.6 627) Advertising Operations Manager ID - ROSA [id number] 07:18:00 Test Item Value Reference Range Interpretation Comments PHOSPHORUS (BEAKER) (test code = 3.8 mg/dL 2.3-4.7 604) Advertising Operations Manager ID - ROSA MHEPATIC FUNCTION [id number] 07:18:00 Test Item Value Reference Range Interpretation [...] code = 58 U/L 6-55 H 347) Advertising Operations Manager ID Clayton HILL [id number] 06:44:00 Test Item Value Reference Range Interpretation [...] failure, acidosis, acute neurological disease, and persistent tachyarrhythmia.Advertising Operations Manager ID Clayton [id number] 06:05:00 Test Item Value Reference Range Interpretation Comments PARTIAL THROMBOPLASTIN TIME 68.9 seconds 22.5-36.0 H (BEAKER) (test code = 760) 6 hours after starting heparin infusion and as indicated per sliding scale PROTHROMBIN TIME/[id number] 06:03:00 Test Item Value Reference Range Interpretation [...] WBC 0-0 (BEAKER) (test code = 413) [id number] 02:56:00 Test Item Value Reference Range Interpretation Comments PARTIAL THROMBOPLASTIN TIME 51.8 seconds 22.5-36.0 H (BEAKER) (test code = 760) TROPONIN [id number] 01:05:00 Test Item Value Reference Range Interpretation [...] failure, acidosis, acute neurological disease, and persistent tachyarrhythmia.Advertising Operations Manager ID - PIAYA LSARS-COV2/RT-PCR ([facility])2020-06-01 23:05:00 Test Item Value Reference Range Interpretation Comments SARS-COV2/RT-PCR (test Negative Not Detected, Negative, code = 3546199) See external report for linked test SARS-COV-2 PERFORMING LAB [facility] AMISHA (test code = 3217308) Negative result for this test determines that [...] of the Act.Fact Sheet for Healthcare Prov iders:https://www.[employer].com/sites/default/files/product/documents/Fact_Sheet_HC _Ywttuygmz_Rtby_XWAP-KhQ-9.pdfFact Sheet for Healthcare Patients:https://www.[employer].com/sites/default/files/product/docume nts/Zgsp_Oshbk_Qxhzymmv_Fzqa_RAJT-ClP-7.pdfPerforming Laboratory:[facility], [place] [address]CCO, CHEST, 2 VIEWS 2020-06-01 22:12:00Reason for exam:->dyspnaShould this be performed at the bedside?->[facility] : 1960 Sex: MFINAL [...] Arreaga Verified Date/Time: 06/01/2020 22:12:01 Reading Location: [address] Reading Room B-TYPE NATRIURETIC FACTOR (BNP)2020-06-01 19:50:00 Test Item Value Reference Range Interpretation Comments B-TYPE NATRIURETIC PEPTIDE 2096 pg/mL 0-100 H (PJ) (test code = 700) Advertising Operations Manager ID - ADMINTROPONIN [id number] 19:50:00 Test Item Value Reference Range Interpretation Comments TROPONIN I (PJ) (test code = 0.02 ng/mL 0.00-0.03 397) [...] failure, acidosis, acute neurological disease, and persistent tachyarrhythmia.Advertising Operations Manager ID - ADMINBASIC METABOLIC PANEL 2020-06-01 19:46:00 [...] 1092) DATA TO CALCULA TE ESTIMATED GFR. Advertising Operations Manager ID - [id number] 19:32:00 Test Item Value Reference Range Interpretation Comments PARTIAL THROMBOPLASTIN TIME 28.3 seconds 22.5-36.0 (BEAKER) (test code = 760) Prior to initiating heparinPT/[id number] 19:32:00 Test Item Value Reference Range Interpretation [...] wiht mechanical heart valves.Prior to initiating heparinPLATELET [id number] 19:19:00 Test Item Value Reference Range Interpretation Comments PLATELET COUNT (LAZARAAKER) (test 259 K/CU MM 150-450 code = 756) Advertising Operations Manager ID - [id number] Knee Right Wo ContMRI Knee Right Wo Cont Notes Date/Time Note Provider Source 2020-06-06 15:55:34-00:00 [facility] OPERATIVE/PROCEDURE REPORT MYRNA EMERSON FACILITY: [facility] Billing #: [id number] Room: [place] [address] MR #: [id number] : 1960 DATE OF PROCEDURE: 06/06/2020 SURGEON: Errol Briggs MD PREOPERATIVE DIAGNOSES: Mitral valve insufficien cy, ruptured mitral valve chordae, congestive heart failure, pulmonary hypertension, paroxysmal atrial fibrillation. POSTOPERATIVE DIAGNOSES: Mitral valve insufficie ncy, ruptured mitral valve chordae, congestive heart failure, pulmonary hypertension, paroxysmal atrial fibrillation. OPERATIVE PROCEDURES: 1. Mitral valve repair. a. Triangular resection of P2 leaflet with rupt ured chordae. b. A 33 mm [place] Tailor ring. 2. Complex case. BI TECHNICAL LEAD: 1. Arun Figueroa MD. 2. Stepan Rodriguez. ANESTHESIA: General endotracheal with TEJINDER, Dr. Hussein patterson. INDICATIONS: This is a 59-year-old man who has a long history of mitral valve insufficiency and developed khushboo re shortness of breath about 6 weeks ago. He was admitted to an outside hospital with atrial fibrillation and severe con gestive heart failure. He was transferred to [facility] for fu rther evaluation. TEJINDER confirmed severe mitral regurgit ation. There was pulmonary hypertension detected preoperative ly. Pulmonary pressures that are elevated at approximately 55/ 30. Cardiac index was compromised at approximately 1.5. Intr a-aortic balloon pump was placed and dobutamine was initi ated. A surgical repair/replacement was recommended. Marcia or to surgery, I described the operation to the patient and his . I told them both that the risks of surgery would includ e , bleeding, infection, heart attack, stroke, pneum onia, prolonged ICU stay, mechanical ventilation, tracheostomy, possible valve replacement in which case they preferred a biolo gic valve or a mechanical valve, etc. The patient and his each stated that they understood, no other question wanted t o proceed. Intra-aortic balloon pump had been placed preope ratively because of the congestive heart failure and low cardiac index. FINDINGS: Ruptured P2 leaflet. Triangular incisi on, triangular excision performed uneventfully. A 33 mm Tailor ring placed. TEJINDER at conclusion of procedure show ed trace to mild insufficiency. Cardiac performance was low both prior to and at completion of procedure with sluggish LV function. True EF maybe about 30-35 or possibly lower. This was difficult to assess intraoperatively with the intra-aortic ba lloon pump already in place. MYOCARDIAL PROTECTION: Antegrade and retrograde cold [place] cardioplegia. Myocardial temperature monitored. Systemic cooling to 32 degrees centigrade by drifting. Tr anexamic acid was used for this case. Cross-clamp time was 82 minutes with a cardiopulmonary bypass time to 151 minute. No bl ood transfusions were administered during the operat ion. The patient was taken to the CV recovery on epi 6, d obutamine 5 and vasopressin 2. DESCRIPTION OF PROCEDURE: The patient was taken to the operating room on June 06, 2020, and placed supine upon the operating room table. General endotracheal anest hesia was smoothly induced. The anterior chest and lower e xtremities were sterilely prepped and draped in the usual f ashion using alcohol prewash and Betadine scrub and solution. Time-out was performed appropriately. Standard sternotomy was performed. The pericardium was opened. The heart had four c hamber enlargement. Wall motion was sluggish. The patie nt was systemically heparinized. ACT was confirmed to b e above 450. Aorta was cannulated at the base of the innomina te artery, cardioplegia was placed in the ascending aorta. Superior vena cava was controlled and cannulated directly. Inf erior vena cava was controlled and cannulated via the right atrium. Cardioplegic cannula was placed into the coronar y sinus via the right atrium. Cardiopulmonary bypass was smoothl y initiated. RAP was performed uneventfully. The aorta was cr ossclamped and a good diastolic hyperthermic arrest achieved us ing the above-mentioned techniques. The right atrium was opened. The atrial septum was then opened as well. The grace l valve was visualized. It should be noted a left ventricula r sump had been placed just after the initiation of cardiop ulmonary bypass. The P2 leaflet was visualized. There were two ru ptured cords as predicted from the preop by echocardiogram. A ll the other cords were intact. The P2 leaflet was somewhat l arger and more redundant. The other leaflets were largely jordyn l. Triangular incision was performed, excising the portion of the P2 leaflet with ruptured cords. The posterior leaflet was r econstructed using a 2-0 Ethibond suture at the base of the t riangular resection and interrupted 5-0 [place] sutures t o the leaflet edge. A 33-mm ring was sized. Ring was implanted using interrupted 2-0 Ethibond sutures. The valve was then tested. The valve repair was intact with minimal leakage . LV sump was then placed across the repair. The atrial septum was reconstructed using 2 layers of 3-0 Prolene afte r infusing cold saline into the LA and LV. Right atrium was clos ed with a double layer 4-0 Prolene closure after instillin g cold saline into the RA and RV. The patient was placed in he ad-down Trendelenburg position. Standard de-airing maneu vers were carried out. The heart was allowed to fill, all four cardiac chambers were of the ascending aorta were digita lly manipulated, air was evacuated via the ascending aortic root cardioplegia cannula, Valsalva's were applied to the lungs, TEJINDER was used to monitor air evacuation. The patient was then weaned from cardiopulmonary bypass. Initial wean ing was slow with borderline cardiac function. It was necessa ry to go back on the heart-lung machine at full flow. Patient was then allowed to rest for approximately 20 minutes whi le drips were optimized. The patient was then weaned again fro m cardiopulmonary bypass using the above drips and the intra-aortic balloon pump. TEJINDER showed trivial to mild mitral insufficiency. The valve repair was intact. Prot amine was administered. All cannulas were removed uneventf ully. There was good hemostasis. Two mediastinal tubes, temp orary ventricular pacing wires were placed. After agai n ensuring good hemostasis, the sternum was reapproximated using double #7 steel wires. After administration of protamine, there was excellent hemostasis. Wound closed in layers usi ng absorbable suture. Sterile dressings were applied. Sponge, instrument, and needle counts were corre ct both prior to and after wound closure. Independent search o f the operative field by both operating surgeons and maritza hammond revealed no retained instruments or sponges. The patient tolerated procedure well, was taken to recovery area in st able condition. Because of the poor cardiac function and the pu lmonary hypertension, this is a more complex case than u sual and took 30% to 40% longer to complete than the typical c ase. Dr. Arun Figueroa, was the wheelchair van operator first responder in or suni to assure patient's safety and safe conduct of the operati on. Because of the patient's unstable condition, Dr. Figueroa assistance was required intense. GVL/MODL /[id number] cc: Stepan Rodriguez, MD Arun Holland MD
[2023-03-19 08:17] LABS: Absolute Lymphocytes (CBC) 1.2 K/uL (0.7-4.9); Hematocrit 41.8 % (39.6-49.0); Lymphocytes % 17.4 % (15.3-44.8); MCV 88.6 fL (80-100); MPV 7.4 fL (7.6-11.3); Platelets 288 thou/uL (152-406); RBC Red Blood Cell Count 4.72 M/uL (4.33-5.43)
[2023-03-19 08:26] LABS: Protime INR 0.98
[2023-03-19 08:41] LABS: ALT/SGPT 23 U/L (16-61); AST/SGOT 20 U/L (15-37); Albumin 3.8 g/dL (3.4-5.0); Alkaline Phosphatase 111 U/L (45-117); BUN Blood Urea Nitrogen 20 mg/dL (7-18); Bicarbonate 27 mEq/L (21-32); Bilirubin Total 0.3 mg/dL (0.2-1.0); Glomerular Filtration Rate 61 ml/min (=/>90); Glucose Level 125 mg/dL (74-106); NT PRO-BNP 582 pg/mL (<125); Protein, Total 7.8 g/dL (6.4-8.2); Sodium Level 138 mEq/L (136-145); Troponin High Sensitivity 7.3 pg/mL (<58.9)
[2023-03-19 08:42] LABS: Bilirubin Direct < 0.1 mg/dL (0-0.2); Bilirubin Indirect, Calculated ND mg/dL (0.2-0.8)
--- NOTE | 2023-03-19 08:42 | RAD REPORT ---
EXAM DESCRIPTION: RAD - Chest Single View - 03/19/2023 8:04 am CLINICAL HISTORY: DYSPNEA Chest pain. COMPARISON: Chest Single View dated 05/22/2022; Chest Pa And Lat (2 Views) dated 03/09/2021; Chest Sin gle View dated 04/24/2020 FINDINGS: Portable technique limits examination quality. The lungs are grossly clear. Trace left pleural fluid. The heart is normal in size. No displaced frac tures.Sternotomy wires. IMPRESSION: Trace left pleural fluid.
[2023-03-19 08:48] LABS: SARS-CoV-2 Antigen Rapid Res Negative (Negative)
--- NOTE | 2023-03-19 10:07 | EDPHYS ---
Physician Documentation [facility] Name: Mani Emerson Age: 62 yrs Sex: Male : 1960 Arrival Date: 03/19/2023 Time: 07:18 Bed 16 Private MD: ED Physician Armand Nixon HPI: 03/19 07:59 This 62 yrs old Male presents to ER via Ambulatory with complaints of Breathing rn Difficulty. 07:59 The patient has shortness of breath at rest, with light activity. Onset: The rn symptoms/episode began/occurred yesterday. Duration: The symptoms are intermittent. The patient's shortness of breath is aggravated by exertion, light activity, is alleviated by rest. Associated signs and symptoms: Pertinent positives: non-productive cough, Pertinent negatives: fever, hemoptysis. Severity of symptoms: At their worst the symptoms were mild in the emergency department the symptoms are unchanged. The patient has experienced similar episodes in the past. Patient reports shortness of breath, worse with exertion, for 2 days. Patient with mild cough but no fever or chills. No hemoptysis. with congestion and cough as well. No chest pain.. Historical: - Allergies: 07:34 No Known Allergies; ll1 - PMHx: 07:34 Hernia; Hypertensive disorder; Mitral Valve Regurgitation; ll1 - PSHx: 07:34 MARY knees; mary shoulders; hernia repair; L hand; Mitral Valve repair in 2019 and ll1 April 2022; Tonsillectomy; - Immunization history:: Client reports receiving the 2nd dose of the Covid vaccine. - Social history:: quit dipping, uses nicotine pouches, Smoking status: Patient/guardian denies using tobacco. - Family history:: not pertinent. - Hospitalizations: : No recent hospitalization is reported. ROS: 07:59 Constitutional: Negative for fever, chills, and weight loss, Eyes: Negative for injury, rn pain, redness, and discharge, ENT: Positive for nasal congestion Neck: Negative for injury, pain, and swelling, Cardiovascular: Negative for chest pain, palpitations, and edema, Respiratory: Positive for cough and shortness of breath Abdomen/GI: Negative for abdominal pain, nausea, vomiting, diarrhea, and constipation, MS/Extremity: Negative for injury and deformity, Skin: Negative for injury, rash, and discoloration, Neuro: Positive for generalized weakness Exam: 07:59 Constitutional: This is a well developed, well nourished patient who is awake, alert, rn and in no acute distress. Head/Face: Normocephalic, atraumatic. ENT: Dry mucous membranes, no stridor Cardiovascular: Regular rate and rhythm. No pulse deficits. Respiratory: Mild tachypnea, crackles left lung right lung clear but diminished breath sounds Abdomen/GI: Soft, non-tender Skin: Warm, dry MS/ Extremity: Pulses equal, no cyanosis. Neurovascular intact. Full, normal range of motion. Equal circumference. Neuro: Awake and alert, GCS 15 08:40 ECG was reviewed by the Attending Physician. rn Vital Signs: 07:35 BP 167 / 94; Pulse 84; Resp 17; Temp 97.6; Pulse Ox 98% on R/A; Weight 90.72 kg; Height ll1 5 ft. 9 in. ; Pain 0/10; 07:53 BP 155 / 95; Pulse 77; Resp 18; Pulse Ox 95% on R/A; ko1 09:54 BP 146 / 93; Pulse 73; Resp 16; Pulse Ox 99% ; ko1 07:35 Body Mass Index 29.53 (90.72 kg, 175.26 cm) ll1 07:35 Pain Scale: Adult ll1 MDM: 07:20 Patient medically screened. rn 10:05 Differential diagnosis: Bronchitis pneumonia, Pneumothorax. Data reviewed: vital signs, rn nurses notes, lab test result(s), radiologic studies, plain films, and as a result, I will discharge patient. Counseling: I had a detailed discussion with the patient and/or guardian regarding the historical points, exam findings, and any diagnostic results supporting the discharge/admit diagnosis, lab results, radiology results, the need for outpatient follow up, to return to the emergency department if symptoms worsen or persist or if there are any questions or concerns that arise at home. Special discussion: I discussed with the patient/guardian in detail that at this point there is no indication for admission to the hospital. It is understood, however, that if the symptoms persist or worsen the patient needs to return immediately for re-evaluation. ED course: Chest x-ray shows trace pleural fluid but no focal infiltrate. No oxygen requirement. Patient states he feels completely normal right now. Patient may start he had beginning of infection. Does not take any blood thinners. Will DC home with antibiotics and return precautions as patient is leaving town tomorrow. COVID-negative. Flu negative.. 03/19 07:40 Order name: BMP; Complete Time: 08:45 rn 03/19 07:40 Order name: Blood Culture Adult (2) rn 03/19 07:40 Order name: CBC with Diff; Complete Time: 08:45 rn 03/19 07:40 Order name: Hepatic Function; Complete Time: 08:45 rn 03/19 07:40 Order name: NT PRO-BNP; Complete Time: 08:45 rn 03/19 07:40 Order name: PT-INR; Complete Time: 08:45 rn 03/19 07:40 Order name: Ptt, Activated; Complete Time: 08:45 rn 03/19 07:40 Order name: Troponin HS; Complete Time: 08:45 rn 03/19 07:40 Order name: SARS RAPID; Complete Time: 08:50 rn 03/19 07:40 Order name: Flu; Complete Time: 08:50 rn 03/19 07:40 Order name: XRAY CXR (1 view); Complete Time: 08:45 rn 03/19 07:40 Order name: EKG; Complete Time: 07:41 rn 03/19 07:40 Order name: Cardiac monitoring; Complete Time: 07:55 rn 03/19 07:40 Order name: EKG - Nurse/Tech; Complete Time: 08:23 rn 03/19 07:40 Order name: IV Saline Lock; Complete Time: 08:00 rn 03/19 07:40 Order name: Labs collected and sent; Complete Time: 08:00 rn 03/19 07:40 Order name: O2 Per Protocol; Complete Time: 07:55 rn 03/19 07:40 Order name: O2 Sat Monitoring; Complete Time: 07:55 rn EC:40 Rate is 75 beats/min. Rhythm is regular. QRS [place] is Normal. IL interval is normal. QRS rn interval is normal. QT interval is normal. No Q waves. T waves are Normal. No ST changes noted. Clinical impression: NSR w/ Non-specific ST/T Changes. Interpreted by me. Reviewed by me. Administered Medications: No medications were administered Disposition Summary: 03/19/23 10:06 Discharge Ordered Location: Home rn Problem: new rn Symptoms: have improved rn Condition: Stable rn Diagnosis - Dyspnea, unspecified rn - Cough rn Followup: rn - With: Private Physician - When: As needed - Reason: Recheck today's complaints, Re-evaluation by your physician Discharge Instructions: - Discharge Summary Sheet rn - Shortness of Breath, Adult rn - Cough, Adult rn Forms: - Medication Reconciliation Form rn - Thank You Letter rn - Antibiotic litigation attorney - Prescription Opioid Use rn - Patient Portal Instructions rn - Leadership Thank You Letter rn Prescriptions: - levofloxacin 500 mg Oral Tablet - take 1 tablet by ORAL route once daily for 7 days; 7 tablet; Refills: 0, rn Product Selection Permitted Signatures: Dispatcher [employer] EDMS Armand Nixon MD MD rn Lewis, Lynsay RN RN ll1 Iram Child RN RN ko1
--- NOTE | 2023-03-19 10:07 | ER ---
Nurse's Notes [facility] Name: Mani Emerson Age: 62 yrs Sex: Male : 1960 Arrival Date: 03/19/2023 Time: 07:18 Bed 16 Private MD: Diagnosis: Dyspnea, unspecified;Cough Presentation: 03/19 07:35 Chief complaint: Patient states: Slight cough, SOB, upset stomach, fatigue since ll1 yesterday. Diarrhea this morning. Coronavirus screen: Vaccine status: Patient reports receiving the 2nd dose of the covid vaccine. Client denies travel out of the [place] in the last 14 days. cough unrelated to allergies, difficulty breathing, fatigue, nausea, Client presents with at least one sign or symptom that may indicate coronavirus-19. Standard/surgical mask placed on the client. Ebola Screen: Patient denies travel to an Ebola-affected area in the 21 days before illness onset. Initial Sepsis Screen: Does the patient meet any 2 criteria? No. Patient's initial sepsis screen is negative. Does the patient have a suspected source of infection? No. Patient's initial sepsis screen is negative. Risk Assessment: Do you want to hurt yourself or someone else? Patient reports no desire to harm self or others. Onset of symptoms was March 18, 2023. 07:35 Method Of Arrival: Ambulatory ll1 07:35 Acuity: MARLEN 3 ll1 Triage Assessment: 07:37 General: Appears in no apparent distress. Behavior is calm, cooperative, appropriate ll1 for age. General: Reports fatigue for. Pain: Denies pain. Respiratory: Reports shortness of breath cough that is. GI: Reports diarrhea, nausea. Historical: - Allergies: 07:34 No Known Allergies; ll1 - PMHx: 07:34 Hernia; Hypertensive disorder; Mitral Valve Regurgitation; ll1 - PSHx: 07:34 MARY knees; mary shoulders; hernia repair; L hand; Mitral Valve repair in 2019 and ll1 April 2022; Tonsillectomy; - Immunization history:: Client reports receiving the 2nd dose of the Covid vaccine. - Social history:: quit dipping, uses nicotine pouches, Smoking status: Patient/guardian denies using tobacco. - Family history:: not pertinent. - Hospitalizations: : No recent hospitalization is reported. Screenin:53 [facility] ED Fall Risk Assessment (Adult) History of falling in the last 3 months, ko1 including since admission No falls in past 3 months (0 pts) Confusion or Disorientation No (0 pts) Intoxicated or Sedated No (0 pts) Impaired Gait No (0 pts) Mobility Assist Device Used No (0 pt) Altered Elimination No (0 pt) Score/Fall Risk Level 0 - 2 = Low Risk Oriented to surroundings, Maintained a safe environment, Educated pt \T\ family on fall prevention, incl call for assistance when getting out of bed, Assessed \T\ reinforced patient's understanding of fall precautions, Provided non-skid footwear, Hourly rounding (assess needs \T\ fall precautionary measures) done, Used ambulatory aids as needed (educated on \T\ assisted with), Used gait belt as appropriate. Abuse screen: Denies threats or abuse. Denies injuries from another. Nutritional screening: No deficits noted. Tuberculosis screening: No symptoms or risk factors identified. Assessment: 07:53 Cardiovascular: Rhythm is regular. Respiratory: Airway is patent Respiratory effort is ko1 even, unlabored, Breath sounds are clear bilaterally. Vital Signs: 07:35 BP 167 / 94; Pulse 84; Resp 17; Temp 97.6; Pulse Ox 98% on R/A; Weight 90.72 kg; Height ll1 5 ft. 9 in. ; Pain 0/10; 07:53 BP 155 / 95; Pulse 77; Resp 18; Pulse Ox 95% on R/A; ko1 09:54 BP 146 / 93; Pulse 73; Resp 16; Pulse Ox 99% ; ko1 07:35 Body Mass Index 29.53 (90.72 kg, 175.26 cm) ll1 07:35 Pain Scale: Adult ll1 ED Course: 07:19 Patient arrived in ED. rg4 07:20 Armand Nixon MD is Attending Physician. rn 07:25 Arm band placed on Patient placed in an exam room, on a stretcher. ll1 07:30 Iram Child, JERONIMO is Primary Nurse. ko1 07:37 Triage completed. ll1 07:53 Patient has correct armband on for positive identification. Bed in low position. Call ko1 light in reach. Side rails up X 1. Provided Education on: na. Pulse ox on. NIBP on. Door closed. Noise minimized. Lights dimmed. Warm blanket given. 08:00 Flu Sent. ko1 08:00 SARS RAPID Sent. ko1 08:00 BMP Sent. ko1 08:00 Blood Culture Adult (2) Sent. ko1 08:00 CBC with Diff Sent. ko1 08:00 Hepatic Function Sent. ko1 08:00 NT PRO-BNP Sent. ko1 08:00 PT-INR Sent. ko1 08:00 Ptt, Activated Sent. ko1 08:00 Troponin HS Sent. ko1 08:00 Inserted saline lock: 22 gauge in left antecubital area, using aseptic technique. Blood ko1 collected. 08:05 XRAY CXR (1 view) In Process Unspecified. EDMS 10:00 No provider procedures requiring assistance completed. ko1 10:22 IV discontinued, intact, bleeding controlled, No redness/swelling at site. Pressure ko1 dressing applied. Administered Medications: No medications were administered Medication: 07:53 VIS not applicable for this client. ko1 Outcome: 10:06 Discharge ordered by . rn 10:22 Discharged to home ambulatory, with family. ko1 10:22 Condition: stable 10:22 Discharge instructions given to patient, family, Instructed on discharge instructions, follow up and referral plans. medication usage, Demonstrated understanding of instructions, follow-up care, medications, Prescriptions given X 1. 10:23 Patient left the ED. ko1 Signatures: Dispatcher [employer] EDID Armand Nixon MD MD rn Garcia, Rubi rg4 Jacqui Paul RN RN 1 Iram Child RN RN ko1
[2023-03-19] MEDS ORDERED: levoFLOXacin 250 MG TAB ONE (10:32)
[2023-03-19 10:40] VITALS: TEMP 97.6
[2023-03-19 11:08] VITALS: BP 146/93; O2SAT 99
--- NOTE | 2023-03-19 16:43 | EKG ---
Test Date: 2023-03-19 Test Time: 08:20:22 [employer] Director [employer] Operations Officer: CHANA MEASUREMENT RESULTS: Intervals: Rate: 75 GA: 170 QRSD: 90 QT: 400 QTc: 446 [place]: P: 41 GA: 170 QRS: 25 T: 85 INTERPRETIVE STATEMENTS: Normal sinus rhythm Normal ECG Compared to ECG 05/22/2022 13:33:00 Myocardial infarct finding no longer present Electronically Signed On 03-19-23 16:41:53 CDT by Rajendra Javier
== END 2023-03-19 10:23 | disposition home or self-care (01) ==
LOC: ER 07:18
DX: R06.00 Dyspnea, unspecified (principal); R50.9 Fever, unspecified; I10 Essential (primary) hypertension; Z20.822 Contact with and (suspected) exposure to COVID-19
CPT/HCPCS: 36415; 71045; 80048; 80076; 83880; 84484; 85025; 85610; 85730; 87040; 87804; 87811; 93005; 99284